=== PATIENT | male | born 1940 | race Caucasian/White ===

== ENCOUNTER 2021-02-16 12:10 | Inpatient (IN) ==
[2021-02-16] MEDS ORDERED: SODIUM CHLORIDE 0.9% 1000ML 1,000 ML IV SCH (12:30)
[2021-02-16 12:43] LABS: Basophils # (auto) 0.01 K/uL (0-0.2); Basophils % (auto) 0.1 %; Eosinophils # (auto) 0.07 K/uL (0-0.5); Hematocrit (blood only) 25.5 % (42-52); Hemoglobin 8.4 g/dL (14.0-18.0); Immature Granulocytes # (auto) 0.11 K/uL (0.00-0.02); Immature Granulocytes % (auto) 1.6 %; Lymphocytes # (auto) 0.69 K/uL (1.2-3.4); Lymphocytes % (auto) 10.1 %; Mean Corpuscular Hemoglobin 30.4 pg (25-34); Mean Corpuscular Hgb Conc 32.9 g/dL (32-36); Mean Corpuscular Volume 92.4 fL (80-100); Mean Platelet Volume 10.5 fL (7.4-10.4); Monocytes # (auto) 0.57 K/uL (0.11-0.59); Monocytes % (auto) 8.3 %; Neutrophils # (auto) 5.41 K/uL (1.4-6.5); Neutrophils % (auto) 78.9 %; Platelet Count 364 K/uL (130-400); RDW Coefficient of Variation 15.2 % (11.5-14.5); RDW Standard Deviation 51.3 fL (36.4-46.3); Red Blood Count 2.76 M/uL (4.7-6.1); White Blood Count 6.86 K/uL (4.8-10.8)
--- NOTE | 2021-02-16 12:53 | Emergency Department Note ---
Impression & Plan Acute renal failure, Hypomagnesemia, Urinary tract infection, Weakness, Anemia ED Provider Note NAME: SCOT STANTON AGE: 80 SEX: M : 1940 ARRIVES VIA: Ambulance INFORMANT: Patient, EMS ED PROVIDER(S): Leo Farrell DO CHIEF COMPLAINT: Weakness HPI: The patient is an 80-year-old male who presented to the emergency dep artment from [facility] for an evaluation of generalized weakness. The patient was started on Augmentin for urinary tract infection recently. He does have a history of atrial fibrillation. He does take Eliquis. He was hospitalized recently for respiratory failure secondary to Covid pneumonia. He was discharged to home again but was taken back to the emergency department because of hypoxia. The patient was discharged to [facility] for inpatient rehab. The patient was admitted to [facility] 4 days ago. The patient was complaining of abdominal pain. He does complain of some abdominal distention. He has been having worsening difficulty ambulating. He was initially noted to have an elevated creatinine compared to baseline. He did have some basic laboratory studies done recently and was found to have an elevation in his creatinine. He was also noticed to have urinary tract infection. The patient himself now states he has no difficulty breathing. He denies having any vomiting but does have significant nausea at this time. He did have some degree of diarrhea recently. He states that this is improved. He states he has been compliant with his usual outpatient medications. ROS: See above HPI for pertinent positives & negatives. A total of 10 systems reviewed and were otherwise negative. PAST MEDICAL HISTORY: See Below PAST SURGICAL HISTORY: See Below FAMILY HISTORY: See Below SOCIAL HISTORY: See Below HOME MEDICATIONS: See Below ALLERGIES: See Below VITALS: See Below PHYSICAL EXAMINATION: GENERAL: The patient is awake and alert. He is nonanxious appearing. EYES: The conjunctivae are clear. The pupils are round and reactive. EARS, NOSE, MOUTH AND THROAT: The nose is without any evidence of any deformity. NECK: The neck is nontender and supple. RESPIRATORY: Diminished breath sounds are noted throughout. There is no tachypnea or conversational dyspnea. CARDIOVASCULAR: Regular rate and rhythm noted there no murmurs rubs or gallops normal S1 normal S2. GASTROINTESTINAL: The abdomen is mildly distended. There is no tenderness guar ding rigidity. MUSCULOSKELETAL/EXTREMITIES: There is no evidence of gross deformity full range of motion is noted in the hips and shoulders. SKIN: The skin is warm and dry. Pedal edema was noted bilaterally. NEUROLOGIC: Patient is awake alert and oriented x3. MEDICAL DECISION MAKING: The patient is an 80-year-old male who recently was diagnosed with COVID-19. He had a very rough course of his COVID-19 infection. He was admitted to [facility] twice and then was transferred to inpatient rehab in our area. Patient presents to the emergency department today because of worsening weakness as well as signs of renal failure on laboratory studies. The patient had a Chambers catheter placed. He was on an antibiotic for urinary tract infecti on. I did treat the patient with IV fluids IV magnesium and IV antibiotics. I discussed the patient's laboratory and radiographic studies with him. I also discussed this case with the on-call [facility]. They have agreed to evaluate the patient in the emergency department for further management and disposition. The patient's potassium was in a normal range. This likely is due to the fact the patient's been having loose bowel movements recently. Triage Nursing notes reviewed. Prior medical records reviewed Vital Signs: reviewed and remarkable for no significant abnormalities Differential diagnosis: Infection, dehydration, metabolic abnormality, hypo/hyperglycemia, electrolyte disturbance, anemia, hypoxia, cardiac sources, intracerebral event, toxicologic, neurologic, as well as other pathologies. ER treatment provided: See below Diagnostics interpreted by me: ECG: EKG was obtained in the emergency department. My interpretation is atrial fibrillation at 63 bpm. Right bundle branch block pattern was noted. Diffuse T wave abnormalities were noted. No previous tracing was available. Cardiac Monitoring: An order was placed for continuous cardiac monitoring. The monitor shows a rate of 64 bpm with atrial fibrillation rhythm. Laboratory studies: As stated above and show below. Imaging studies: See below Consultation(s): I discussed this case with Teri johnson who is on-call for the [facility] group. They will evaluate the patient in the emergency department for further management and disposition. Past Med/Surg History Medical History Atrial fibrillation COVID-19 virus infection Dyslipidemia Hypertension Myasthenia gravis Osteoarthritis Surgical History S/P AAA repair Social History Smoking Status: Former smoker Feels Safe at Home: Yes Allergies Allergies Allergy/AdvReac Type Severity Reaction Status Date / Time milk Allergy Unknown Unverified 02/16/21 15:04 onion Allergy Unknown Unverified 02/16/21 15:04 pork derived (porcine) Allergy Unknown Unverified 02/16/21 15:04 Home Meds Home Medications Medication Instructions Recorded Confirmed acetaminophen 325 mg tablet 650 mg PO Q4H PRN 02/16/21 02/16/21 (Tylenol) amoxicillin 875 mg-potassium 1 tab PO Q12H 02/16/21 02/16/21 clavulanate 125 mg tablet (Augmentin) ampicillin sodium 2 gram 2 g IV Q6H 02/16/21 02/16/21 intravenous piggyback apixaban 5 mg tablet (Eliquis) 5 mg PO Q12 02/16/21 02/16/21 ascorbic acid (vitamin C) 1,000 mg 1,000 mg PO DAILY 02/16/21 02/16/21 tablet,extended release atorvastatin 10 mg tablet (Lipitor) 10 mg PO HS 02/16/21 02/16/21 azathioprine 50 mg tablet (Imuran) 150 mg PO DAILY 02/16/21 02/16/21 benzonatate 100 mg capsule 100 mg PO TID 02/16/21 02/16/21 (Tessalon Perles) calcium carbonate 500 mg (1,250 1 tab PO DAILY 02/16/21 02/16/21 mg)-vitamin D3 200 unit tablet (Calcium 500 + D) citalopram 40 mg tablet (Celexa) 40 mg PO DAILY 02/16/21 02/16/21 diphenoxylate-atropine 2.5 1 tab PO QID 02/16/21 02/16/21 mg-0.025 mg tablet (Lomotil) docusate sodium 100 mg capsule 100 mg PO BID 02/16/21 02/16/21 empagliflozin 10 mg tablet 10 mg PO DAILY 02/16/21 02/16/21 (Jardiance) lisinopril 40 mg tablet (Zestril) 40 mg PO DAILY 02/16/21 02/16/21 metoprolol tartrate 25 mg tablet 25 mg PO Q12H 02/16/21 02/16/21 ondansetron HCl 4 mg tablet 4 mg PO Q8H PRN 02/16/21 02/16/21 (Zofran) pantoprazole 40 mg tablet,delayed 40 mg PO DAILYBB 02/16/21 02/16/21 release (Protonix) pyridostigmine bromide 60 mg See Rx Instructions .ROUTE .COMPLEX 02/16/21 02/16/21 tablet (Mestinon) tamsulosin 0.4 mg capsule (Flomax) 0.4 mg PO QDD 02/16/21 02/16/21 torsemide 20 mg tablet 20 mg PO DAILY 02/16/21 02/16/21 zinc sulfate 50 mg zinc (220 mg) 50 mg PO DAILY 02/16/21 02/16/21 capsule (Zinc-220) Results & Data (ED) Vital Signs Vital Signs - 24 hr 02/16/21 12:17 02/16/21 12:22 02/16/21 13:15 Temperature 36.5 C Temperature Source Oral Pulse Rate 60 58 L Pulse Rate from SpO2 Sensor 59 L Pulse Rhythm Regular Pulse Strength Normal Respiratory Rate 20 17 Respiratory Effort / Characteristics Non-Labored Respiratory Depth Normal Respiratory Pattern Regular Blood Pressure 117/57 L 121/52 L Blood Pressure Mean 77 75 Blood Pressure Position Lying Pulse Oximetry 99 99 99 Oxygen Delivery Method Room Air Room Air Nasal Cannula Oxygen Flow Rate 2 Sepsis Recent Fever Within 48 Hours No Sepsis New/Unexplained Change in Mental Status N/A Sepsis Action Taken by Nursing No Action Required 02/16/21 13:30 02/16/21 13:45 Temperature Temperature Source Pulse Rate 64 Pulse Rate from SpO2 Sensor 68 62 Pulse Rhythm Pulse Strength Respiratory Rate 18 Respiratory Effort / Characteristics Respiratory Depth Respiratory Pattern Blood Pressure 133/58 L 126/59 L Blood Pressure Mean 83 81 Blood Pressure Position Pulse Oximetry 95 98 Oxygen Delivery Method Nasal Cannula Nasal Cannula Oxygen Flow Rate 2 2 Sepsis Recent Fever Within 48 Hours Sepsis New/Unexplained Change in Mental Status Sepsis Action Taken by [facility] Medications Current Medication List: was personally reviewed by me Laboratory Data Attestation: I reviewed the patient's lab results. Result diagrams: 02/16/21 12:23 02/16/21 12:23 Lab Results 02/16/21 02/16/21 02/16/21 Range/Units 12:23 12:23 12:23 WBC 6.86 (4.8-10.8) K/uL RBC 2.76 L (4.7-6.1) M/uL Hgb 8.4 L (14.0-18.0) g/dL Hct 25.5 L (42-52) % MCV 92.4 (80-100) fL MCH 30.4 (25-34) pg MCHC 32.9 (32-36) g/dL RDW Std Deviation 51.3 H (36.4-46.3) fL RDW Coeff of Song 15.2 H (11.5-14.5) % Plt Count 364 (130-400) K/uL MPV 10.5 H (7.4-10.4) fL Immature Gran % (Auto) 1.6 % Neut % (Auto) 78.9 % Lymph % (Auto) 10.1 % [place] % (Auto) 8.3 % Eos % (Auto) 1.0 % Baso % (Auto) 0.1 % Neut # (Auto) 5.41 (1.4-6.5) K/uL Lymph # (Auto) 0.69 L (1.2-3.4) K/uL [place] # (Auto) 0.57 (0.11-0.59) K/uL Eos # (Auto) 0.07 (0-0.5) K/uL Baso # (Auto) 0.01 (0-0.2) K/uL Immature Gran # (Auto) 0.11 H (0.00-0.02) K/uL PT 12.3 H (9.0-12.0) Seconds INR 1.2 H (0.9-1.1) APTT 30.5 (21.0-31.0) Seconds PTT Ratio 1.2 Sodium 138 (136-145) mmol/L Potassium 3.1 L (3.5-5.1) mmol/L Chloride 107 (98-107) mmol/L Carbon Dioxide 19 L (21-32) mmol/L Anion Gap 12.0 H (3-11) BUN 39 H (7-18) mg/dl Creatinine 7.75 H* (0.6-1.4) mg/dl Est Cr Clr Drug Dosing 9.6 ml/min Est GFR ( Amer) 6.9 ml/min Est GFR (Non-Af Amer) 5.9 ml/min BUN/Creatinine Ratio 5.1 L (10-20) Glucose 95 (70-99) mg/dl Calcium 7.2 L (8.5-10.1) mg/dl Magnesium 1.7 L (1.8-2.4) mg/dl Total Bilirubin 0.5 (0.2-1) mg/dl AST 19 (15-37) U/L ALT 24 (12-78) U/L Alkaline Phosphatase 51 (45-117) U/L Total Creatine Kinase 42 (39-308) U/L Troponin I < 0.015 (0-0.045) ng/ml NT-Pro-B Natriuret Pep 6481 H (0-1800) pg/ml Total Protein 5.4 L (6.4-8.2) gm/dl Albumin 1.1 L (3.4-5.0) gm/dl Globulin 4.3 H (2.5-4.0) gm/dl Albumin/Globulin Ratio 0.3 L (0.9-2) TSH 1.320 (0.300-4.500) uIu/ml Urine Color Urine Appearance (Clear) Urine pH (4.5-7.5) Ur Specific [place] (1.000-1.030) Urine Protein (Negative) Urine Glucose (UA) (Negative) Urine Ketones (Negative) Urine Blood (Negative) Urine Nitrite (Negative) Urine Bilirubin (Negative) Urine Urobilinogen (Negative) Ur Leukocyte Esterase (Negative) Urine WBC (Auto) (0-5) /hpf Urine RBC (Auto) (0-4) /hpf U Hyaline Cast (Auto) (0-5) /lpf U Epithel Cells (Auto) (0-5) /lpf Urine Bacteria (Auto) (Negative) Urine Yeast (None Prsent) Stl C. diff Tox B Gene COVID-19 Eval Order SARS-CoV-2 (PCR) (Negative) 02/16/21 02/16/21 02/16/21 Range/Units 12:34 12:34 12:34 WBC (4.8-10.8) K/uL RBC (4.7-6.1) M/uL Hgb (14.0-18.0) g/dL Hct (42-52) % MCV (80-100) fL MCH (25-34) pg MCHC (32-36) g/dL RDW Std Deviation (36.4-46.3) fL RDW Coeff of Song (11.5-14.5) % Plt Count (130-400) K/uL MPV (7.4-10.4) fL Immature Gran % (Auto) % Neut % (Auto) % Lymph % (Auto) % [place] % (Auto) % Eos % (Auto) % Baso % (Auto) % Neut # (Auto) (1.4-6.5) K/uL Lymph # (Auto) (1.2-3.4) K/uL [place] # (Auto) (0.11-0.59) K/uL Eos # (Auto) (0-0.5) K/uL Baso # (Auto) (0-0.2) K/uL Immature Gran # (Auto) (0.00-0.02) K/uL PT (9.0-12.0) Seconds INR (0.9-1.1) APTT (21.0-31.0) Seconds PTT Ratio Sodium (136-145) mmol/L Potassium (3.5-5.1) mmol/L Chloride (98-107) mmol/L Carbon Dioxide (21-32) mmol/L Anion Gap (3-11) BUN (7-18) mg/dl Creatinine (0.6-1.4) mg/dl Est Cr Clr Drug Dosing ml/min Est GFR ( Amer) ml/min Est GFR (Non-Af Amer) ml/min BUN/Creatinine Ratio (10-20) Glucose (70-99) mg/dl Calcium (8.5-10.1) mg/dl Magnesium (1.8-2.4) mg/dl Total Bilirubin (0.2-1) mg/dl AST (15-37) U/L ALT (12-78) U/L Alkaline Phosphatase (45-117) U/L Total Creatine Kinase (39-308) U/L Troponin I (0-0.045) ng/ml NT-Pro-B Natriuret Pep (0-1800) pg/ml Total Protein (6.4-8.2) gm/dl Albumin (3.4-5.0) gm/dl Globulin (2.5-4.0) gm/dl Albumin/Globulin Ratio (0.9-2) TSH (0.300-4.500) uIu/ml Urine Color Urine Appearance (Clear) Urine pH (4.5-7.5) Ur Specific [place] (1.000-1.030) Urine Protein (Negative) Urine Glucose (UA) (Negative) Urine Ketones (Negative) Urine Blood (Negative) Urine Nitrite (Negative) Urine Bilirubin (Negative) Urine Urobilinogen (Negative) Ur Leukocyte Esterase (Negative) Urine WBC (Auto) (0-5) /hpf Urine RBC (Auto) (0-4) /hpf U Hyaline Cast (Auto) (0-5) /lpf U Epithel Cells (Auto) (0-5) /lpf Urine Bacteria (Auto) (Negative) Urine Yeast (None Prsent) Stl C. diff Tox B Gene TNP COVID-19 Eval Order Covid19 at [facility] SARS-CoV-2 (PCR) POSITIVE A* (Negative) 02/16/21 Range/Units 12:44 WBC (4.8-10.8) K/uL RBC (4.7-6.1) M/uL Hgb (14.0-18.0) g/dL Hct (42-52) % MCV (80-100) fL MCH (25-34) pg MCHC (32-36) g/dL RDW Std Deviation (36.4-46.3) fL RDW Coeff of Song (11.5-14.5) % Plt Count (130-400) K/uL MPV (7.4-10.4) fL Immature Gran % (Auto) % Neut % (Auto) % Lymph % (Auto) % [place] % (Auto) % Eos % (Auto) % Baso % (Auto) % Neut # (Auto) (1.4-6.5) K/uL Lymph # (Auto) (1.2-3.4) K/uL [place] # (Auto) (0.11-0.59) K/uL Eos # (Auto) (0-0.5) K/uL Baso # (Auto) (0-0.2) K/uL Immature Gran # (Auto) (0.00-0.02) K/uL PT (9.0-12.0) Seconds INR (0.9-1.1) APTT (21.0-31.0) Seconds PTT Ratio Sodium (136-145) mmol/L Potassium (3.5-5.1) mmol/L Chloride (98-107) mmol/L Carbon Dioxide (21-32) mmol/L Anion Gap (3-11) BUN (7-18) mg/dl Creatinine (0.6-1.4) mg/dl Est Cr Clr Drug Dosing ml/min Est GFR ( Amer) ml/min Est GFR (Non-Af Amer) ml/min BUN/Creatinine Ratio (10-20) Glucose (70-99) mg/dl Calcium (8.5-10.1) mg/dl Magnesium (1.8-2.4) mg/dl Total Bilirubin (0.2-1) mg/dl AST (15-37) U/L ALT (12-78) U/L Alkaline Phosphatase (45-117) U/L Total Creatine Kinase (39-308) U/L Troponin I (0-0.045) ng/ml NT-Pro-B Natriuret Pep (0-1800) pg/ml Total Protein (6.4-8.2) gm/dl Albumin (3.4-5.0) gm/dl Globulin (2.5-4.0) gm/dl Albumin/Globulin Ratio (0.9-2) TSH (0.300-4.500) uIu/ml Urine Color Yellow Urine Appearance Turbid A (Clear) Urine pH 5.0 (4.5-7.5) Ur Specific [place] 1.018 (1.000-1.030) Urine Protein 1+ H (Negative) Urine Glucose (UA) Negative (Negative) Urine Ketones Trace H (Negative) Urine Blood 3+ H (Negative) Urine Nitrite Negative (Negative) Urine Bilirubin Negative (Negative) Urine Urobilinogen Negative (Negative) Ur Leukocyte Esterase 2+ H (Negative) Urine WBC (Auto) >30 H (0-5) /hpf Urine RBC (Auto) 10-30 H (0-4) /hpf U Hyaline Cast (Auto) 1-5 (0-5) /lpf U Epithel Cells (Auto) >30 H (0-5) /lpf Urine Bacteria (Auto) 1+ H (Negative) Urine Yeast Budding w/ Hyphae A (None Prsent) Stl C. diff Tox B Gene COVID-19 Eval Order SARS-CoV-2 (PCR) (Negative) Administered Medications Discontinued Medications Sodium Chloride (Nss 1000ml) 1,000 mls @ 999 mls/hr IV .Q1H1M BOBBI Stop: 02/16/21 13:30 Last Infusion: 02/16/21 13:34 Dose: 0 mls/hr Documented by: [id number] Admin: 02/16/21 12:32 Dose: 999 mls/hr Documented by: [id number] Piperacillin Sod/Tazobactam Sod (Zosyn) 4.5 gm in 120 mls @ 240 mls/hr IV NOW ONE Stop: 02/16/21 14:19 Last Infusion: 02/16/21 15:17 Dose: 0 mls/hr Documented by: [id number] Admin: 02/16/21 13:59 Dose: 240 mls/hr Documented by: [id number] Magnesium Sulfate/Dextrose (Magnesium Sulfate / D5w) 1 gm in 100 mls @ 100 mls/hr IV NOW STA Stop: 02/16/21 14:55 Last Infusion: 02/16/21 15:17 Dose: 0 mls/hr Documented by: [id number] Admin: 02/16/21 14:01 Dose: 100 mls/hr Documented by: [id number] Ondansetron HCl (Ondansetron Inj 2 Mg/Ml 2 Ml Vial) Confirm Administered Dose 4 mg .ROUTE .STK-MED ONE Stop: 02/16/21 14:01 Last Admin: 02/16/21 14:06 Dose: 4 mg Documented by: [id number] Imaging Data Radiologist's Impression: Chest X-Ray 02/16/21 12:22 XR chest 1V portable CLINICAL HISTORY: weakness COMPARISON STUDY: No previous studies for comparison. FINDINGS: Lung volumes are normal. There is no pneumothorax or pleural effusion. Multifocal nodular airspace opacities are noted. These include a 2.5 cm left midlung nodular opacity. These are greater within the left lung. There may be right infrahilar opacity. There is cardiomegaly. IMPRESSION: 1. Several nodular opacities within the left lung. An infectious process is favored however underlying pulmonary nodules cannot be excluded. Radiographic follow-up to ensure resolution is recommended. 2. Cardiomegaly. ACT 112: Negative or not required by law. Electronically signed by: Griffin Marley M.D. 02/16/2021 1:33 PM Discharge Plan Visit Data Chief Complaint: Abnormal Labs/Diagnostic Testing Stated Complaint: DECREASE KIDNEY FUNCTION ED Provider: Leo Farrell Discharge Problem: Acute renal failure, Hypomagnesemia, Urinary tract infection, Weakness, Anemia Patient Disposition: Being Evaluated by Hospitalist Forms Stand Alone Forms: [facility] Prescriptions Prescriptions: No Action acetaminophen [Tylenol] 325 mg Tablet 650 mg PO Q4H PRN (Reason: Pain) RF: 0 torsemide 20 mg tablet 20 mg PO DAILY RF: 0 citalopram [Celexa] 40 mg tablet 40 mg PO DAILY RF: 0 atorvastatin [Lipitor] 10 mg tablet 10 mg PO HS RF: 0 ondansetron HCl [Zofran] 4 mg tablet 4 mg PO Q8H PRN (Reason: Nausea) RF: 0 ascorbic acid (vitamin C) 1,000 mg Tablet Extended Release 1,000 mg PO DAILY RF: 0 diphenoxylate-atropine [Lomotil] 2.5-0.025 mg tablet 1 tab PO QID RF: 0 azathioprine [Imuran] 50 mg tablet 150 mg PO DAILY RF: 0 tamsulosin [Flomax] 0.4 mg capsule 0.4 mg PO QDD RF: 0 benzonatate [Tessalon Perles] 100 mg capsule 100 mg PO TID RF: 0 pantoprazole [Protonix] 40 mg tablet,delayed release (DR/EC) 40 mg PO DAILYBB RF: 0 pyridostigmine bromide [Mestinon] 60 mg tablet See Rx Instructions .ROUTE .COMPLEX RF: 0 docusate sodium 100 mg Capsule 100 mg PO BID RF: 0 lisinopril [Zestril] 40 mg tablet 40 mg PO DAILY RF: 0 amoxicillin-pot clavulanate [Augmentin] 875-125 mg tablet 1 tab PO Q12H RF: 0 ampicillin sodium 2 gram Piggyback 2 g IV Q6H RF: 0 metoprolol tartrate 25 mg tablet 25 mg PO Q12H RF: 0 calcium carbonate-vitamin D3 [Calcium 500 + D] 500 mg(1,250mg) -200 unit Tablet 1 tab PO DAILY RF: 0 zinc sulfate [Zinc-220] 50 mg zinc (220 mg) capsule 50 mg PO DAILY RF: 0 Eliquis 5 mg tablet 5 mg PO Q12 RF: 0 Jardiance 10 mg tablet 10 mg PO DAILY RF: 0 Referrals Referrals: PCP,NO [Physician] -
[2021-02-16 12:54] LABS: INR 1.2 (0.9-1.1); Partial Thromboplastin Ratio 1.2; Partial Thromboplastin Time 30.5 Seconds (21.0-31.0); Prothrombin Time 12.3 Seconds (9.0-12.0)
[2021-02-16 13:06] LABS: Appearance Urine Turbid (Clear); Bilirubin Urine Negative (Negative); Blood Urine 3+ (Negative); Color Urine Yellow; Epithelial Cell Urine Auto >30 /lpf (0-5); Glucose Urine UA Negative (Negative); Ketones Urine Trace (Negative); Leukocyte Esterase Urine 2+ (Negative); Nitrite Urine Negative (Negative); Protein Urine 1+ (Negative); Specific Gravity Urine 1.018 (1.000-1.030); Urobilinogen Urine Negative (Negative); WBC Urine Automated >30 /hpf (0-5)
[2021-02-16 13:22] LABS: Bacteria Urine Automated 1+ (Negative)
--- NOTE | 2021-02-16 13:35 | XRay Report ---
XR chest 1V portable CLINICAL HISTORY: weakness COMPARISON STUDY: No previous studies for comparison. FINDINGS: Lung volumes are normal. There is no pneumothorax or pleural effusion. Multifocal nodular a irspace opacities are noted. These include a 2.5 cm left midlung nodular opacity. These are greater w ithin the left lung. There may be right infrahilar opacity. There is cardiomegaly. IMPRESSION: 1. Several nodular opacities within the left lung. An infectious process is favored however underlyin g pulmonary nodules cannot be excluded. Radiographic follow-up to ensure resolution is recommended. 2. Cardiomegaly. ACT 112: Negative or not required by law. Electronically signed by: Griffin Marley M.D. 02/16/2021 1:33 PM
[2021-02-16 13:36] LABS: Alanine Aminotransferase 24 U/L (12-78); Albumin Globulin Ratio 0.3 (0.9-2); Albumin Level 1.1 gm/dl (3.4-5.0); Alkaline Phosphatase 51 U/L (45-117); Aspartate Aminotransferase 19 U/L (15-37); BUN Creatinine Ratio 5.1 (10-20); Bilirubin,Total 0.5 mg/dl (0.2-1); Blood Urea Nitrogen 39 mg/dl (7-18); Calcium 7.2 mg/dl (8.5-10.1); Carbon Dioxide 19 mmol/L (21-32); Chloride 107 mmol/L (98-107); Creatine Kinase 42 U/L (39-308); Creatinine Clr Calc Pharmacy 9.6 ml/min; Est GFR (African American) 6.9 ml/min; Est GFR (Non-African American) 5.9 ml/min; Globulin 4.3 gm/dl (2.5-4.0); Glucose 95 mg/dl (70-99); Magnesium 1.7 mg/dl (1.8-2.4); NT Pro B Type Natriuretic Pept 6481 pg/ml (0-1800); Potassium 3.1 mmol/L (3.5-5.1); Sodium 138 mmol/L (136-145); Total Protein 5.4 gm/dl (6.4-8.2); Troponin I < 0.015 ng/ml (0-0.045)
[2021-02-16] MEDS ORDERED: PIPERACILL/TAZOBAC CONSULT ACTIVE PRN ×2 (13:50→19:27)
[2021-02-16] MEDS ORDERED: PIPERACILLIN/TAZOBACTAM 4.5 GM/120 ML BAG IV ONE (13:50)
[2021-02-16] MEDS ORDERED: MAGNESIUM SULFATE / D5W 1 GM/100 ML BAG IV STA (13:56)
[2021-02-16] MEDS ORDERED: ONDANSETRON INJ 2 MG/ML 2 ML VIAL ONE (14:00)
[2021-02-16] MEDS ORDERED: Heparin IV Adult Wt-Based Standard *NO* Bolus Protocol ONE (15:34)
[2021-02-16 16:46] LABS: Total Protein Urine Random 134.4 mg/dl (0-11.9)
[2021-02-16 17:24] LABS: Base Excess VBG -9.3 mEq/L; HCO3 VBG 18 mmol/L; Oxygen Saturation VBG < 60.0 %; PCO2 VBG 45 mmHg (38-50); PO2 VBG 26 mmHg; pH VBG 7.22 (7.36-7.41)
[2021-02-16] MEDS ORDERED: ACETAMINOPHEN 325 MG TAB PO PRN (19:27)
[2021-02-16] MEDS ORDERED: PROMETHAZINE HCL 6.25 MG in SODIUM CHLORIDE 0.9% 50 ML IV STA (19:31)
[2021-02-16] MEDS: SODIUM CHLORIDE 0.9% 1000ML 1,000 ML IV SCH (19:44)
--- NOTE | 2021-02-16 20:50 | History & Physical Report ---
Date of Service February 16, 2021 Assessment & Plan (1) Acute renal failure: Plan: -admit to tele -patient presenting from [facility] for eval of worsening renal failure -creat 1.0 02/12 -> 2.7 02/13 -> 6.3 -> 7.7 today -young placed in ED with very little urine return -check renal US -urine osmo, protein, creat -K+ 3.1, Mg+ 1.7 - replace, follow electrolytes -metabolic acidosis noted - VBG ph 7.22, HCO3 18 -IVF -nephro consult (2) Anemia: Plan: -hgb 8.4 -likely due to underlying renal failure -no signs of bleeding -follow CBC, transfuse PRN (3) History of COVID-19: Plan: -recent admissions to per HPI -currently saturating well on 2L (started during previous admission) (4) Urinary tract infection: Plan: -recently had enterococcus UTI and 1/2 blood cultures positive for enterococcus -received IV ampicillin and was to transition to Augmentin -s/p Zosyn in the ED, continue with -follow cultures (5) History of pulmonary embolism: Plan: -given renal failure, stop Eliquis and start IV heparin (6) DM type 2 (diabetes mellitus, type 2): Plan: -hgb a1c 6.7 12/2020 -Novolog per protocol while hospitalized (7) Paroxysmal A-fib: Plan: -rate controlled on metoprolol -on IV heparin as above (8) Myasthenia gravis: Plan: -continue azathioprine and pyridostigmine renally dosed (9) DVT prophylaxis: Plan: -on IV heparin Admission and Anticipated Discharge Date Admission Date: February 16, 2021 History of Present Illness Chief Complaint: Sent from [facility] for worsening renal failure Primary Care Provider: Huy Rainey MD Patient seen by Dr. Curry, please refer to her additional documentation. 80 year old male with PMH MG, DM type II, s/p AAA repair, recent COVID 19 infection, pulmonary embolism anticoagulated on Eliquis, p. afib, and other problems listed below who was sent to the ED from [facility] for evaluation of worsening renal failure. Recently admitted to [facility] 01/20-01/23 for COVID pneumonia and acute PE. Patient was treated with dexamethasone and remdesivir. Was started on Eliquis for PE. Hypoxia resolved by the time of discharge. Kalyan julian presented back to [facility] 01/26 and was found to be in afib RVR. Rates improved with IV metoprolol. He also required 2L O2. He was redosed with dexamethasone and remdesvir. Patient again discharged home. Patient then admitted to [facility] 02/08-02/12 for UTI. Urine culture from 02/09 grew enterococcus and 1 out of 2 blood cultures from 02/08 grew enteroccoccus as well. Repeat cultures from 02/12 show no growth to date. (culture information obtained via phone from micro lab). Patient was discharged on IV ampicillin for 4 days and was to transition to Augmentin today for 1 week. Patient was discharged to [facility] for rehab needs. Has been noted to have worsening renal failure (creat 1.0 on 02/12 -> 2.7 -> 6.3 -> 7.6). In the ED, patient is hemodynamically stable. Labs show hgb 8.4, creat 7.7, K+ 3.1. Young was placed with little urine return. UA appears infected. Patient was given Mg+ replacement, IV Zosyn, IVF. Allergies Allergy/AdvReac Type Severity Reaction Status Date / Time milk Allergy Unknown Unverified 02/16/21 15:04 onion Allergy Unknown Unverified 02/16/21 15:04 pork derived (porcine) Allergy Unknown Unverified 02/16/21 15:04 Home Medications Medication Instructions Recorded Confirmed Type acetaminophen 325 mg tablet 650 mg PO Q4H PRN 02/16/21 02/16/21 History (Tylenol) amoxicillin 875 mg-potassium 1 tab PO Q12H 02/16/21 02/16/21 History clavulanate 125 mg tablet (Augmentin) ampicillin sodium 2 gram 2 g IV Q6H 02/16/21 02/16/21 History intravenous piggyback apixaban 5 mg tablet (Eliquis) 2.5 mg PO Q12 02/16/21 02/16/21 History ascorbic acid (vitamin C) 1,000 mg 1,000 mg PO DAILY 02/16/21 02/16/21 History tablet,extended release atorvastatin 10 mg tablet (Lipitor) 10 mg PO HS 02/16/21 02/16/21 History azathioprine 50 mg tablet (Imuran) 150 mg PO DAILY 02/16/21 02/16/21 History benzonatate 100 mg capsule 100 mg PO TID PRN 02/16/21 02/16/21 History (Tessalon Perles) calcium carbonate 500 mg (1,250 1 tab PO DAILY 02/16/21 02/16/21 History mg)-vitamin D3 200 unit tablet (Calcium 500 + D) citalopram 40 mg tablet (Celexa) 40 mg PO DAILY 02/16/21 02/16/21 History diphenoxylate-atropine 2.5 1 tab PO QID PRN 02/16/21 02/16/21 History mg-0.025 mg tablet (Lomotil) docusate sodium 100 mg capsule 100 mg PO BID 02/16/21 02/16/21 History empagliflozin 10 mg tablet 10 mg PO DAILY 02/16/21 02/16/21 History (Jardiance) metoprolol tartrate 25 mg tablet 25 mg PO Q12H 02/16/21 02/16/21 History ondansetron HCl 4 mg tablet 4 mg PO Q8H PRN 02/16/21 02/16/21 History (Zofran) pantoprazole 40 mg tablet,delayed 40 mg PO DAILYBB 02/16/21 02/16/21 History release (Protonix) pyridostigmine bromide 60 mg See Rx Instructions .ROUTE .COMPLEX 02/16/21 02/16/21 History tablet (Mestinon) tamsulosin 0.4 mg capsule (Flomax) 0.4 mg PO QDD 02/16/21 02/16/21 History zinc sulfate 50 mg zinc (220 mg) 50 mg PO DAILY 02/16/21 02/16/21 History capsule (Zinc-220) Past Med/Surg History Medical History (Updated 02/16/21 @ 21:13 by ALONDRA Ruiz) COVID-19 virus infection DM type 2 (diabetes mellitus, type 2) Dyslipidemia History of pulmonary embolism Hypertension Myasthenia gravis Osteoarthritis Paroxysmal A-fib Surgical History S/P AAA repair Family History Father Cancer Social History (Reviewed 02/16/21 @ 21:10 by MAURICIO Ruiz Smoking Status: Former smoker Cigarettes Per Day: 1 pack; Smoking End Date: 25 years ago; Hx Alcohol Use: No Hx Substance Use: No Preferred Language: Wolof Communication Ability: Effective Community Integration Specialist Required: No Beliefs That Will Affect Care: None Current Living Situation: Rehab Current Living Situation Comment: [facility] Other Information That Helps Us Care for You: No Feels Safe at Home: Yes Safety Concerns: Feels Safe At This Time Assistive Devices: Denture - Upper and Walker Assistive Devices Comment: not sure of how much oxygen he is on Review of Systems Review of Systems: At least ten systems were reviewed and negative except as indicated in HPI above. Physical Exam Physical Exam: CONSTITUTIONAL: WNWD, vitals as above, generally ill- appearing, NAD EYES: normal conjunctivae, no scleral icterus ENT: external ear and nose normal, MMM NECK: trachea midline RESPIRATORY: clear to auscultation bilaterally, no crackles, rales or wheezes, normal respiratory effort CARDIOVASCULAR: regular rate and rhythm, S1 and 2 heard without murmurs, gallops or rubs, no JVD, no peripheral edema GASTROINTESTINAL: soft, nontender, ND, no guarding MUSCULOSKELETAL: generalized weakness, head is normocephalic and atraumatic SKIN: warm and dry NEUROLOGIC: No facial palsy, no dysarthria. CN 2-12 grossly intact, normal cognition, normal speech, no tremor. No gross focal deficits. PSYCHIATRIC: alert cooperative and oriented to person, place and time. Euthymic mood, makes good eye contact, language grossly intact, recent and remote memory grossly intact. Results & Data Results & Data ([facility]) Vital Signs (Past 12 Hours) Vital Signs Temp Pulse Pulse Resp BP BP Pulse Ox 02/16/21 19:45 36.4 C 70 20 140/51 L 90 02/16/21 19:27 36.4 C 70 20 140/51 L 96 02/16/21 16:03 61 16 101/51 L 99 02/16/21 13:45 126/59 L 98 02/16/21 13:30 64 18 133/58 L 95 02/16/21 13:15 58 L 17 121/52 L 99 02/16/21 12:22 99 02/16/21 12:17 36.5 C 60 20 117/57 L 99 Laboratory Results Short CBC 10/17/21 Range/Units 12:23 WBC 6.86 (4.8-10.8) K/uL Hgb 8.4 L (14.0-18.0) g/dL Hct 25.5 L (42-52) % Plt Count 364 (130-400) K/uL BMP 02/16/21 12:23 Sodium 138 Potassium 3.1 L Chloride 107 Carbon Dioxide 19 L BUN 39 H Creatinine 7.75 H* Glucose 95 Calcium 7.2 L Cardiac Enzymes 02/16/21 02/16/21 Range/Units 12:23 17:14 Total Creatine Kinase 42 39 (39-308) U/L Troponin I < 0.015 (0-0.045) ng/ml Liver Function 02/16/21 Range/Units 12:23 Total Bilirubin 0.5 (0.2-1) mg/dl AST 19 (15-37) U/L ALT 24 (12-78) U/L Alkaline Phosphatase 51 (45-117) U/L Albumin 1.1 L (3.4-5.0) gm/dl Urine 02/16/21 Range/Units 12:44 Urine Color Yellow Urine Appearance Turbid A (Clear) Urine pH 5.0 (4.5-7.5) Ur Specific [place] 1.018 (1.000-1.030) Urine Protein 1+ H (Negative) Urine Glucose (UA) Negative (Negative) Diagnostic Findings Chest X-Ray 02/16/21 12:22 XR chest 1V portable CLINICAL HISTORY: weakness COMPARISON STUDY: No previous studies for comparison. FINDINGS: Lung volumes are normal. There is no pneumothorax or pleural effusion. Multifocal nodular airspace opacities are noted. These include a 2.5 cm left midlung nodular opacity. These are greater within the left lung. There may be right infrahilar opacity. There is cardiomegaly. IMPRESSION: 1. Several nodular opacities within the left lung. An infectious process is favored however underlying pulmonary nodules cannot be excluded. Radiographic follow-up to ensure resolution is recommended. 2. Cardiomegaly. ACT 112: Negative or not required by law. Electronically signed by: Griffin Marley M.D. 02/16/2021 1:33 PM Code Status & VTE Plan VTE Prophylaxis Plan VTE Prophylaxis will be ordered: No Supervising Physician Co-Signing Physician Notes I have seen and examined the patient and have discussed the case with the provider above. I agree with the assessment and plan as stated. The patient is an 80 yo M with two recent hospitalizations after covid pneumonia infection resulting in a transition to rehab. In the last couple of days at [facility] rehab, he has notably become more generally weak and apathetic to food. He also has developed acute renal failure. Infecitons and antibiotic history is above. He has anemia which is likely multifactorial including kidney disease, inflammation from multiple chronic medical problems and persistent daily phlebotomy for the past month. He reports no respiratory symptoms at this time and is otherwise having no symptoms. UA is positive and noted recent history of blood and urine infection with enterococcus; repeat cultures are pending. Covering with Zosyn empirically. My physical exam is above. Agree with plan for renally dosed antibiotics pending culture results and clinical improvement. IVF and nephro consult with BMP trend in am. Agree with converting Eliquis to heparin in setting of recent acute PE; he is also in persistent atrial fibrillation which will provide stroke prophylaxis. Radha is not a large player in the active problem list. DO Patricio (1) Urinary tract infection Hematuria presence: with hematuria Urinary tract infection type: site unspecified Qualified Code(s): N39.0 - Urinary tract infection, site not specified; R31.9 - Hematuria, unspecified (2) Acute renal failure Acute renal failure type: unspecified Qualified Code(s): N17.9 - Acute kidney failure, unspecified
[2021-02-16] MEDS ORDERED: POTASSIUM CHLORIDE CRTAB 20 MEQ TABCR PO ONE (21:08)
[2021-02-16] MEDS: HEPARIN SODIUM/DEXTROSE 25,000 UNITS/500 ML BAG IV SCH (21:21)
[2021-02-16] MEDS: TAMSULOSIN HCL 0.4 MG CAP PO SCH (21:23)
[2021-02-16] MEDS: ATORVASTATIN 10 MG TAB PO SCH (21:23)
[2021-02-16] MEDS: METOPROLOL TARTRATE 25 MG TAB PO SCH (21:24)
[2021-02-16] MEDS: PYRIDOSTIGMINE BROMIDE 60 MG TAB PO SCH (21:24)
[2021-02-16] MEDS: PIPERACILLIN/TAZOBACTAM 3.375 GM in DEXTROSE 5% 100 ML IV SCH (21:29)
[2021-02-17 03:43] LABS: Hematocrit (blood only) 30.4 % (42-52); Hemoglobin 9.9 g/dL (14.0-18.0); Mean Corpuscular Hemoglobin 29.8 pg (25-34); Mean Corpuscular Hgb Conc 32.6 g/dL (32-36); Mean Corpuscular Volume 91.6 fL (80-100); Mean Platelet Volume 10.1 fL (7.4-10.4); Platelet Count 306 K/uL (130-400); RDW Standard Deviation 50.8 fL (36.4-46.3); Red Blood Count 3.32 M/uL (4.7-6.1); White Blood Count 4.92 K/uL (4.8-10.8)
[2021-02-17 04:02] LABS: Partial Thromboplastin Ratio 4.3
[2021-02-17 04:06] LABS: Partial Thromboplastin Time 112.5 Seconds (21.0-31.0)
[2021-02-17 04:59] LABS: BUN Creatinine Ratio 5.7 (10-20); Calcium 6.8 mg/dl (8.5-10.1); Creatinine Clr Calc Pharmacy 9.6 ml/min; Magnesium 1.9 mg/dl (1.8-2.4); Phosphorus 5.8 mg/dl (2.5-4.9); Potassium 3.2 mmol/L (3.5-5.1)
[2021-02-17] MEDS: SODIUM CHLORIDE 0.9% 1000ML 1,000 ML IV SCH ×2 (05:06→13:12)
[2021-02-17] MEDS: PANTOprazole 40 MG TAB PO SCH (05:40)
[2021-02-17] MEDS ORDERED: POTASSIUM CHLORIDE 10 MEQ TABCR PO STA (05:44)
[2021-02-17] MEDS: DIPHENOXYLATE/ATROPINE 2.5/0.025MG TAB PO ONE ×2 (06:40→09:18)
[2021-02-17] MEDS ORDERED: PROMETHAZINE HCL 6.25 MG in SODIUM CHLORIDE 0.9% 50 ML IV STA (06:45)
[2021-02-17] MEDS: METOPROLOL TARTRATE 25 MG TAB PO SCH ×3 (09:17→20:56)
[2021-02-17] MEDS: azaTHIOprine 25 MG TAB PO SCH ×2 (09:17→12:40)
[2021-02-17] MEDS: PYRIDOSTIGMINE BROMIDE 60 MG TAB PO SCH ×4 (09:17→20:56)
[2021-02-17] MEDS: PIPERACILLIN/TAZOBACTAM 3.375 GM in DEXTROSE 5% 100 ML IV SCH ×2 (09:18→21:51)
[2021-02-17] MEDS ORDERED: MAGNESIUM SULFATE / D5W 1 GM/100 ML BAG IV ONE (11:41)
[2021-02-17] MEDS ORDERED: POTASSIUM CHLORIDE CRTAB 20 MEQ TABCR PO STA (11:41)
[2021-02-17 11:44] LABS: Partial Thromboplastin Ratio 3.6
[2021-02-17 11:50] LABS: Partial Thromboplastin Time 95.8 Seconds (21.0-31.0)
[2021-02-17] MEDS ORDERED: CALCIUM GLUCONATE 10% 2,000 MG in SODIUM CHLORIDE 0.9% 50 ML IV ONE (12:00)
[2021-02-17] MEDS: HEPARIN SODIUM/DEXTROSE 25,000 UNITS/500 ML BAG IV SCH (13:22)
--- NOTE | 2021-02-17 13:31 | Hospitalist Progress Note ---
Date of Service February 17, 2021 Assessment & Plan (1) Acute renal failure due to tubular necrosis: Plan: Obstruction was ruled out wt renal ultrasound today. Likely ATN. Hemodialysis if needed, defer to nephro. For now cont renal diet, electrolyte correction as needed (note corrected calcium is 9.4 without replacement), renal diet and NSS. Metabolic acidosis on labwork. Acute renal failure is the likely cause for nausea, however, consider additional imaging of abdomen if this doesn't improve with treatment. (2) ATN (acute tubular necrosis): (3) Anemia: Plan: -hgb 8.4 -likely multifactorial including kidney disease, inflammation from multiple chronic medical problems and persistent daily phlebotomy for the past month. -no signs of bleeding -follow CBC, transfuse PRN (4) History of COVID-19: Plan: -recent admissions to [facility] twice in Jan per HPI -currently saturating well on 2L (started during previous admission), previously treated for covid-19 at OSH one month ago. (5) Urinary tract infection: Plan: -recently had enterococcus UTI and 1/2 blood cultures positive for enterococcus -received IV ampicillin and was to transition to Augmentin -cont Zosyn pending clinical improvement and negative cultures. (6) History of pulmonary embolism: Plan: -recent PE diagnosis one month ago, possibly provoked from covid illness, given renal failure, stop Eliquis and start IV heparin, request records from outside hospital. (7) DM type 2 (diabetes mellitus, type 2): Plan: -hgb a1c 6.7 12/2020, will place on diabetic diet and cont Novolog as needed for BSG >200. (8) Paroxysmal A-fib: Plan: -rate controlled on metoprolol, heparin for stroke prophylaxis. (9) Myasthenia gravis: Plan: -continue azathioprine and pyridostigmine renally dosed, NIFs are nomal and t here is no evidence of myasthenia crisis (10) DVT prophylaxis: Plan: cont IV heparin while in renal failure Full Dispo-back to [facility] once renal failure resolves. DO [facility] Hospitalist Admission and Anticipated Discharge Date Admission Date: February 16, 2021 Subjective 80 yo M with multiple recent hospitalizations for covid, afib with RVR, blood and urine infections and PE now presenting from [facility] rehab with malaise nausea and acuute renal failure. He is persistently nauseous today. Phenergan IV didn't help yesterday and he cannot have Zofran for prolonged QTc, decided to try NC phenergan. He otherwise denies CP, SOB, abdominal pain or other issues today. He is not eating much 2/2 nausea. Review of Systems Review of Systems: At least ten systems were reviewed and negative except as indicated in HPI above. Physical Exam Physical Exam: CONSTITUTIONAL: WNWD, vitals as above, generally ill- appearing, NAD EYES: normal conjunctivae, no scleral icterus ENT: external ear and nose normal, MMM NECK: trachea midline RESPIRATORY: clear to auscultation bilaterally, no crackles, rales or wheezes, normal respiratory effort CARDIOVASCULAR: regular rate and rhythm, S1 and 2 heard without murmurs, gallops or rubs, no JVD, no peripheral edema GASTROINTESTINAL: soft, nontender, ND, no guarding MUSCULOSKELETAL: generalized weakness, head is normocephalic and atraumatic SKIN: warm and dry NEUROLOGIC: No facial palsy, no dysarthria. CN 2-12 grossly intact, normal cognition, normal speech, no tremor. No gross focal deficits. PSYCHIATRIC: alert cooperative and oriented to person, place and time. Euthymic mood, makes good eye contact, language grossly intact, recent and remote memory grossly intact. Results & Data Results & Data ([facility]) Vital Signs (Past 12 Hours) Vital Signs Temp Pulse Pulse Resp BP Pulse Ox 02/17/21 11:25 36.7 C 75 17 115/49 L 92 02/17/21 07:24 36.7 C 63 24 132/55 L 94 02/17/21 07:00 62 02/17/21 03:16 36.5 C 62 20 108/53 L 93 Laboratory Results Short CBC 02/17/21 Range/Units 03:28 WBC 4.92 (4.8-10.8) K/uL Hgb 9.9 L (14.0-18.0) g/dL Hct 30.4 L (42-52) % Plt Count 306 (130-400) K/uL BMP 02/16/21 02/17/21 12:23 03:28 Sodium 138 141 Potassium 3.1 L 3.2 L Chloride 107 110 H Carbon Dioxide 19 L 16 L BUN 39 H 43 H Creatinine 7.75 H* 7.64 H* Glucose 95 103 H Calcium 7.2 L 6.8 L Cardiac Enzymes 02/16/21 02/16/21 Range/Units 12:23 17:14 Total Creatine Kinase 42 39 (39-308) U/L Troponin I < 0.015 (0-0.045) ng/ml Liver Function 02/16/21 Range/Units 12:23 Total Bilirubin 0.5 (0.2-1) mg/dl AST 19 (15-37) U/L ALT 24 (12-78) U/L Alkaline Phosphatase 51 (45-117) U/L Albumin 1.1 L (3.4-5.0) gm/dl Medications Administered Current Inpatient Medications Acetaminophen (Acetaminophen 325 Mg Tab) 650 mg PO Q8H PRN PRN Reason: Pain or Fever Stop: 03/18/21 19:26 Atorvastatin Calcium (Atorvastatin 10 Mg Tab) 10 mg PO HS BOBBI Stop: 03/18/21 20:59 Last Admin: 02/16/21 21:23 Dose: 10 mg Documented by: Azathioprine (Azathioprine 25 Mg Tab) 75 mg PO DAILY BOBBI Stop: 03/19/21 08:59 Last Admin: 02/17/21 12:40 Dose: Not Given Documented by: Sodium Chloride (Nss 1000ml) 1,000 mls @ 75 mls/hr IV .[id number] [facility] Stop: 03/18/21 15:29 Last Admin: 02/17/21 13:12 Dose: 75 mls/hr Documented by: Heparin Sodium/Dextrose (Heparin Sodium/Dextrose) 25,000 units in 500 mls @ 24 mls/hr IV .[id number] [facility]; Protocol Stop: 03/18/21 17:59 Last Admin: 02/17/21 13:22 Dose: 1,200 units/hr, 24 mls/hr Documented by: Piperacillin Sod/Tazobactam (Sod 3.375 gm/ Dextrose) 115 mls @ 28.75 mls/hr IV Q12H [facility]; Protocol Stop: 02/18/21 21:59 Last Infusion: 02/17/21 09:18 Dose: 0 mls/hr Documented by: Magnesium Sulfate/Dextrose (Magnesium Sulfate / D5w) 1 gm in 100 mls @ 50 mls/hr IV ONE ONE Stop: 02/17/21 13:40 Last Admin: 02/17/21 13:12 Dose: 50 mls/hr Documented by: Potassium Chloride (K [place] / Wtr) 10 meq in 100 mls @ 100 mls/hr IV Q1H [facility] Stop: 02/17/21 14:28 Metoprolol Tartrate (Metoprolol Tartrate 25 Mg Tab) 25 mg PO BID BOBBI Stop: 03/18/21 20:59 Last Admin: 02/17/21 12:40 Dose: Not Given Documented by: Miscellaneous Information (Piperacill/Tazobac Consult Active) 1 ea N/A UD PRN PRN Reason: Consult Stop: 03/18/21 19:26 Pantoprazole Sodium (Pantoprazole 40 Mg Tab) 40 mg PO DAILYBB [facility]OBBI Stop: 03/19/21 06:29 Last Admin: 02/17/21 05:40 Dose: 40 mg Documented by: Pyridostigmine Crozet (Pyridostigmine Crozet 60 Mg Tab) 15 mg PO TID [facility] Stop: 03/18/21 20:59 Last Admin: 02/17/21 12:40 Dose: Not Given Documented by: Tamsulosin HCl (Tamsulosin Hcl 0.4 Mg Cap) 0.4 mg PO QDD [facility] Stop: 03/18/21 19:26 Last Admin: 02/16/21 21:23 Dose: 0.4 mg Documented by: (1) Urinary tract infection Hematuria presence: with hematuria Urinary tract infection type: site unspecified Qualified Code(s): N39.0 - Urinary tract infection, site not specified; R31.9 - Hematuria, unspecified
[2021-02-17] MEDS: POTASSIUM CHLORIDE / WTR 10 MEQ/100 ML PLCT IV SCH ×2 (14:10→15:12)
[2021-02-17 14:56] LABS: Urine Potassium 17.9 mmol/L
--- NOTE | 2021-02-17 14:58 | Ultrasound Report ---
US renal/blad retro comp CLINICAL HISTORY: ARF r/o hydronephrosis TECHNIQUE: Multiple sonographic real-time images of the kidneys and bladder were obtained. COMPARISON: None available at the time of this dictation. FINDINGS: The right kidney measures 11.2 cm in length, and the left kidney measures 12.2 cm in length. The right kidney is normal in size, contour, cortical thickness, and echogenicity. No hydronephrosis is identified. No perinephric fluid collection is seen. The left kidney is normal in size, contour, cortical thickness and echogenicity. No hydronephrosis i s identified. No perinephric fluid collection is seen. The bladder is collapsed with a Chambers catheter in place. No large intraluminal mass is seen. IMPRESSION: Unremarkable renal ultrasound. In particular, no evidence of hydronephrosis. ACT 112: Negative or not required by law. Electronically signed by: Jeff Manzo M.D. 02/17/2021 2:57 PM
[2021-02-17] MEDS ORDERED: PROMETHAZINE HCL 25 MG SUPP PR ONE (15:30)
--- NOTE | 2021-02-17 16:56 | Electrocardiogram Report ---
Test Reason : Blood Pressure : / mmHG Vent. Rate : 063 BPM Atrial Rate : 056 BPM P-R Int : 000 ms QRS Dur : 148 ms QT Int : 542 ms P-R-T Axes : 000 -58 104 degrees QTc Int : 554 ms Sinus bradycardia Premature atrial complexes Left axis deviation Right bundle branch block Abnormal ECG No previous ECGs available Confirmed by Cristino Guajardo ([id number]) on 02/17/2021 4:56:12 PM Referred By: Confirmed By:Cristino Guajardo
[2021-02-17 18:05] LABS: Partial Thromboplastin Ratio 2.6
[2021-02-17] MEDS: TAMSULOSIN HCL 0.4 MG CAP PO SCH (18:06)
[2021-02-17 19:48] LABS: Partial Thromboplastin Time 69.2 Seconds (21.0-31.0)
[2021-02-17] MEDS: METOCLOPRAMIDE HCL INJ 5 MG/ML 2 ML VIAL IV PRN (20:00)
--- NOTE | 2021-02-17 20:24 | Consultation Report ---
NEPHROLOGY CONSULTATION NOTE DATE OF SERVICE: 02/17/2021 REASON FOR CONSULTATION: Acute renal failure. HISTORY OF PRESENT ILLNESS: The patient is an 80-year-old male who had a normal creatinine of 1.0 just a few days ago on 02/12. He was sent over from the [facility] because of worsening renal failure. He was noted to have a creatinine of 7.6. So, essentially it has gone up from 1.0 to 7.6 in the span of 4 days. The patient does have significant comorbidities including type 2 diabetes, status post AAA repair, recent COVID infection, pulmonary embolism with recent start of anticoagulation on Eliquis. He was admitted in [facility] 01/20 to 01/23 for COVID pneumonia and acute PE. He was admitted again in [facility] between 02/08 and 02/12 for urinary tract infection and after that admission, he was sent over to [facility] for rehab. The patient has been receiving multiple different types of antibiotics for the last few weeks. He did have a Chambers catheter placed with very little urine return. Urinalysis appears to be quite active sediment. He did have low potassium and low magnesium and both have been replaced. He is currently getting IV antibiotics with IV Zosyn as well as normal saline at 125 mL per hour. He is currently hemodynamically stable with good blood pressure and on room air. ALLERGIES: MILK, ONION, AND PORK DERIVATIVES. MEDICATIONS: Home medication list was reviewed in detail and is as per the reconciliation list. He has had a significant medication change in the last few weeks because of multiple hospitalizations and Emergency Department visit. He was not on any JULIOCESAR or ARB or any type of diuretics. He has received amoxicillin, Augmentin, ampicillin as his antibiotics in the last few weeks. PAST MEDICAL AND SURGICAL HISTORY: COVID-19 pneumonia in 01/2021, type 2 diabetes - on Jardiance, dyslipidemia, recent history of pulmonary embolism with recent start of Eliquis, hypertension, myasthenia gravis, osteoarthritis, paroxysmal AFib, status post AAA repair. FAMILY HISTORY: Negative for renal disease or dialysis. SOCIAL HISTORY: Former smoker. It does appear he takes some oxygen, but he was unsure. REVIEW OF SYSTEMS: At this point, he does not really complain of much symptoms. Denies nausea, vomiting, chest pain, shortness of breath, orthopnea, PND, major loss of appetite, nausea, vomiting, or diarrhea. PHYSICAL EXAMINATION: GENERAL: Elderly white male who does not appear to be in any respiratory distress at this time. He was able to tell fairly accurate account of his medical problem. VITAL SIGNS: Blood pressure is 115/49, pulse was 75, temperature 36.7, 92% on room air. HEENT: Mucous membrane is moist. NECK: Supple. No jugular venous distention. CHEST: Bilaterally clear to auscultation. CARDIOVASCULAR: S1 and S2, regular. ABDOMEN: Soft, nontender. EXTREMITIES: Show no edema. ASSESSMENT AND PLAN: An 80-year-old male who was sent over from [facility] because of worsening renal failure. I have been consulted for acute renal failure. Acute renal failure: The rise of the creatinine has been fairly fast as it had gone from 1.0 on 02/12/2021 to 7.___ in a span of 4 days. Such rapid rise of creatinine does not have too many causes. Almost always this is either acute tubular necrosis or acute obstructive uropathy. Given this, we will rule out with renal ultrasound. Urine sediment is quite active and correlates more with acute tubular necrosis, which happened within the last few days. Most likely, he had an ischemic injury to his renal tubular cells as he would be very susceptible given underlying disease and multiple recent antibiotic exposure as well as acute illnesses. Other possibilities are acute interstitial nephritis secondary to various antibiotics/infection. RECOMMENDATIONS: 1. Continue IV fluid at a slightly low rate of 75 mL per hour. 2. Urgent renal ultrasound as it is critical to rule out significant obstructive uropathy. 3. Input/output charting. 4. Avoid nephrotoxic agents including JULIOCESAR inhibitor, ARB, contrast agents and NSAIDs. 5. Creatinine went down slightly from yesterday to this morning, which is somewhat of a good sign. He does not appear to be in need of dialysis at this time, but we cannot rule out that he will need it during this admission. I did discuss with the patient that there is a chance he may need dialysis support in the coming days. He was agreeable to dialysis if such need arise. Continue to monitor electrolytes carefully. His calcium and magnesium were both low and obviously are interrelated. I would give one more dose of IV magnesium as well as calcium to correct the electrolytes as well as potassium. Continue daily labs. Job ID: [id number] [facility]
[2021-02-17] MEDS: ATORVASTATIN 10 MG TAB PO SCH (20:56)
[2021-02-18 02:57] LABS: Partial Thromboplastin Ratio 2.8
[2021-02-18 03:04] LABS: Partial Thromboplastin Time 72.9 Seconds (21.0-31.0)
[2021-02-18] MEDS: SODIUM CHLORIDE 0.9% 1000ML 1,000 ML IV SCH ×2 (04:53→08:26)
[2021-02-18] MEDS: PANTOprazole 40 MG TAB PO SCH (05:47)
[2021-02-18] MEDS: azaTHIOprine 25 MG TAB PO SCH (08:24)
[2021-02-18] MEDS: PYRIDOSTIGMINE BROMIDE 60 MG TAB PO SCH ×3 (08:24→21:25)
[2021-02-18] MEDS: METOPROLOL TARTRATE 25 MG TAB PO SCH ×2 (08:25→21:25)
[2021-02-18] MEDS ORDERED: GLUCOSE 40% GEL 15 GM TUBE PO PRN (09:03)
[2021-02-18] MEDS ORDERED: GLUCOSE 10 TABS/TUBE PO PRN (09:03)
[2021-02-18] MEDS ORDERED: CARBOHYDRATES FOR HYPOGLYCEMIA PO PRN (09:03)
[2021-02-18] MEDS ORDERED: GLUCAGON FOR INJ 1 MG VIAL SQ PRN (09:03)
[2021-02-18] MEDS ORDERED: DEXTROSE 50% 50 ML SYRINGE IV PRN (09:03)
[2021-02-18 09:17] LABS: Basophils # (auto) 0.01 K/uL (0-0.2); Basophils % (auto) 0.2 %; Eosinophils # (auto) 0.12 K/uL (0-0.5); Eosinophils % (auto) 2.7 %; Hematocrit (blood only) 30.3 % (42-52); Hemoglobin 10.1 g/dL (14.0-18.0); Immature Granulocytes # (auto) 0.06 K/uL (0.00-0.02); Immature Granulocytes % (auto) 1.3 %; Lymphocytes # (auto) 0.99 K/uL (1.2-3.4); Lymphocytes % (auto) 22.1 %; Mean Corpuscular Hemoglobin 30.5 pg (25-34); Mean Corpuscular Hgb Conc 33.3 g/dL (32-36); Mean Corpuscular Volume 91.5 fL (80-100); Mean Platelet Volume 10.5 fL (7.4-10.4); Monocytes # (auto) 0.35 K/uL (0.11-0.59); Monocytes % (auto) 7.8 %; Neutrophils # (auto) 2.94 K/uL (1.4-6.5); Neutrophils % (auto) 65.9 %; Platelet Count 352 K/uL (130-400); RDW Coefficient of Variation 15.6 % (11.5-14.5); RDW Standard Deviation 52.5 fL (36.4-46.3); Red Blood Count 3.31 M/uL (4.7-6.1); White Blood Count 4.47 K/uL (4.8-10.8)
[2021-02-18 09:41] LABS: Partial Thromboplastin Ratio 2.1
[2021-02-18 09:42] LABS: Partial Thromboplastin Time 54.4 Seconds (21.0-31.0)
[2021-02-18 09:59] LABS: Albumin Level 1.1 gm/dl (3.4-5.0); BUN Creatinine Ratio 5.7 (10-20); Calcium 7.4 mg/dl (8.5-10.1); Est GFR (African American) 7.3 ml/min; Est GFR (Non-African American) 6.3 ml/min; Magnesium 2.1 mg/dl (1.8-2.4)
[2021-02-18] MEDS: PIPERACILLIN/TAZOBACTAM 3.375 GM in DEXTROSE 5% 100 ML IV SCH ×2 (10:22→21:22)
[2021-02-18] MEDS: HEPARIN SODIUM/DEXTROSE 25,000 UNITS/500 ML BAG IV SCH (10:24)
[2021-02-18] MEDS ORDERED: CALCIUM GLUCONATE 10% 2,000 MG in SODIUM CHLORIDE 0.9% 50 ML IV ONE (10:34)
--- NOTE | 2021-02-18 10:34 | Nephrology Progress Note ---
Date of Service February 18, 2021 Assessment & Plan Admission and Anticipated Discharge Date Admission Date: February 16, 2021 Subjective No new issues. slighty more urine now PHYSICAL EXAMINATION: GENERAL: Elderly white male who does not appear to be in any respiratory distress at this time. He was able to tell fairly accurate account of his medical problem. HEENT: Mucous membrane is moist. NECK: Supple. No jugular venous distention. CHEST: Bilaterally clear to auscultation. CARDIOVASCULAR: S1 and S2, regular. ABDOMEN: Soft, nontender. EXTREMITIES: Trace to 1+ edema. ASSESSMENT AND PLAN: An 80-year-old male who was sent over from [facility] because of worsening renal failure. I have been consulted for acute renal failure. Acute renal failure: The rise of the creatinine has been fairly fast as it had gone from 1.0 on 02/12/2021 to 7+ in a span of 4 days. ARFsec to acute tubular necrosis. Urine sediment is quite active and correlates more with acute tubul ar necrosis, which happened within the last few days. Most likely, he had an ischemic injury to his renal tubular cells as he would be very susceptible given underlying disease and multiple recent antibiotic exposure as well as acute illnesses. Other possibilities are acute interstitial nephritis secondary to various antibiotics/infection. RECOMMENDATIONS: 1. stop iv fluid--now has edema and needing o2. 2. No hydronephrosis on the renal ultrasound 3. Input/output charting. 4. Avoid nephrotoxic agents including JULIOCESAR inhibitor, ARB, contrast agents and NSAIDs. 5. Creatinine again went down slightly from yesterday to this morning, which is somewhat of a good sign. He does not appear to be in need of dialysis at this time, but we cannot rule out that he will need it during this admission. I did discuss with the patient that there is a chance he may need dialysis support in the coming days. He was agreeable to dialysis if such need arise. Continue to monitor electrolytes carefully. His calcium and was low. I would give one more dose of IV calcium to correct the electrolytes as well as potassium. Continue daily labs. Results & Data ([facility]) Vital Signs (Past 12 Hours) Vital Signs Temp Pulse Resp BP Pulse Ox 02/18/21 07:43 36.5 C 64 20 114/59 L 98 02/18/21 03:39 36.5 C 79 20 111/60 98 02/17/21 23:09 36.5 C 62 18 107/51 L 96
--- NOTE | 2021-02-18 12:01 | Electrocardiogram Report ---
Test Reason : Blood Pressure : / mmHG Vent. Rate : 066 BPM Atrial Rate : 082 BPM P-R Int : 000 ms QRS Dur : 138 ms QT Int : 504 ms P-R-T Axes : 000 -58 105 degrees QTc Int : 528 ms Sinus bradycardia Premature atrial complexes Right bundle branch block Left anterior fascicular block Bifascicular block Abnormal ECG When compared with ECG of 16-FEB-2021 12:23, (unconfirmed) No significant change was found Confirmed by Cristino Guajardo ([id number]) on 02/18/2021 12:01:04 PM Referred By: Milan Andrews Confirmed By:Cristino Guajardo
[2021-02-18] MEDS: INSULIN ASPART 100 UNITS/ML 3 ML PEN SC SCH ×3 (13:13→22:21)
[2021-02-18] MEDS: POTASSIUM CHLORIDE 10 MEQ TABCR PO SCH ×2 (14:50→21:25)
[2021-02-18] MEDS: TAMSULOSIN HCL 0.4 MG CAP PO SCH (17:40)
--- NOTE | 2021-02-18 19:15 | Hospitalist Progress Note ---
Date of Service February 18, 2021 Assessment & Plan (1) Acute renal failure due to tubular necrosis: Plan: Obstruction was ruled out w renal ultrasound. Etiology likely ATN. Hemodialysis if needed, defer to nephro. For now cont renal diet, electrolyte correction as needed, renal diet and NSS. Metabolic acidosis on labwork. Acute renal failure is the likely cause for nausea, however, consider additional imaging of abdomen if this doesn't improve with treatment. (2) Anemia: Plan: -likely multifactorial including kidney disease, inflammation from multiple chronic medical problems and persistent daily phlebotomy for the past month. -no signs of bleeding -follow CBC, transfuse PRN (3) History of COVID-19: Plan: -recent admissions to [facility] twice in Jan per HPI -currently saturating well on 2L (started during previous admission-residual hypoxia since discharge), previously treated for covid-19 at OSH one month ago. (4) Urinary tract infection: Plan: -recently had enterococcus UTI and 1/2 blood cultures positive for enterococcus -received IV ampicillin and was to transition to Augmentin -cont Zosyn pending clinical improvement and negative cultures. (5) History of pulmonary embolism: Plan: -recent PE diagnosis one month ago, possibly provoked from covid illness, given renal failure, stop Eliquis and start IV heparin, request records from outside hospital. (6) DM type 2 (diabetes mellitus, type 2): Plan: -hgb a1c 6.7 12/2020, will place on diabetic diet and cont Novolog as needed for BSG >200. (7) Paroxysmal A-fib: Plan: -rate controlled on metoprolol, heparin for stroke prophylaxis. (8) Myasthenia gravis: Plan: -continue azathioprine and pyridostigmine renally dosed, NIFs are nomal and there is no evidence of myasthenia crisis (9) DVT prophylaxis: Plan: cont IV heparin while in renal failure Full Dispo-back to [facility] once renal failure resolves. Zuri Curry DO [facility] Hospitalist Admission and Anticipated Discharge Date Admission Date: February 16, 2021 Subjective 80 yo M with multiple recent hospitalizations for covid, afib with RVR, blood and urine infections and PE now presenting from [facility] rehab with malaise nausea and acuute renal failure. He is persistently nauseous today. He otherwise denies CP, SOB, abdominal pain or other issues today. He is not eating much 2/2 nausea. Review of Systems Review of Systems: At least ten systems were reviewed and negative except as indicated in HPI above. Physical Exam Physical Exam: CONSTITUTIONAL: WNWD, vitals as above, generally ill- appearing, NAD EYES: normal conjunctivae, no scleral icterus ENT: external ear and nose normal, MMM NECK: trachea midline RESPIRATORY: clear to auscultation bilaterally, no crackles, rales or wheezes, normal respiratory effort CARDIOVASCULAR: regular rate and rhythm, S1 and 2 heard without murmurs, gallops or rubs, no JVD, no peripheral edema GASTROINTESTINAL: soft, nontender, ND, no guarding MUSCULOSKELETAL: generalized weakness, head is normocephalic and atraumatic SKIN: warm and dry NEUROLOGIC: No facial palsy, no dysarthria. CN 2-12 grossly intact, normal cognition, normal speech, no tremor. No gross focal deficits. PSYCHIATRIC: alert cooperative and oriented to person, place and time. Euthymic mood, makes good eye contact, language grossly intact, recent and remote memory grossly intact. Results & Data Results & Data ([facility]) Vital Signs (Past 12 Hours) Vital Signs Temp Pulse Resp BP Pulse Ox 02/18/21 15:48 36.4 C L 92 H 16 109/63 98 02/18/21 11:16 36.5 C 84 20 106/56 L 95 02/18/21 07:43 36.5 C 64 20 114/59 L 98 Laboratory Results Short CBC 02/18/21 Range/Units 08:38 WBC 4.47 L (4.8-10.8) K/uL Hgb 10.1 L (14.0-18.0) g/dL Hct 30.3 L (42-52) % Plt Count 352 (130-400) K/uL BMP 02/18/21 08:38 Sodium 140 Potassium 3.0 L Chloride 111 H Carbon Dioxide 17 L BUN 42 H Creatinine 7.34 H* D Glucose 90 Calcium 7.4 L Liver Function 02/18/21 Range/Units 08:38 Albumin 1.1 L (3.4-5.0) gm/dl Medications Administered Current Inpatient Medications Acetaminophen (Acetaminophen 325 Mg Tab) 650 mg PO Q8H PRN PRN Reason: Pain or Fever Stop: 03/18/21 19:26 Atorvastatin Calcium (Atorvastatin 10 Mg Tab) 10 mg PO HS [facility] Stop: 03/18/21 20:59 Last Admin: 02/17/21 20:56 Dose: 10 mg Documented by: Azathioprine (Azathioprine 25 Mg Tab) 75 mg PO DAILY [facility]BI Stop: 03/19/21 08:59 Last Admin: 02/18/21 08:24 Dose: 75 mg Documented by: Dextrose (Dextrose 50% 50 Ml Syringe) 25 - 50 ml IV UD PRN; Protocol PRN Reason: Hypoglycemia Protocol Stop: 03/20/21 09:02 Glucagon (Glucagon For Inj 1 Mg Vial) 1 mg SQ UD PRN; Protocol PRN Reason: Hypoglycemia Protocol Stop: 03/20/21 09:02 Glucose (Glucose 10 Tabs/Tube) 4 - 8 tabs PO UD PRN; Protocol PRN Reason: Hypoglycemia Protocol Stop: 03/20/21 09:02 Glucose (Glucose 40% Gel 15 Gm Tube) 15 - 30 gm PO UD PRN; Protocol PRN Reason: Hypoglycemia Protocol Stop: 03/20/21 09:02 Heparin Sodium/Dextrose (Heparin Sodium/Dextrose) 25,000 units in 500 mls @ 20 mls/hr IV .Q24H [facility]OBBI; Protocol Stop: 03/18/21 17:59 Last Admin: 02/18/21 10:24 Dose: Not Given Documented by: Piperacillin Sod/Tazobactam (Sod 3.375 gm/ Dextrose) 115 mls @ 28.75 mls/hr IV Q12H [facility]; Protocol Stop: 02/20/21 21:59 Last Infusion: 02/18/21 14:44 Dose: Infused Documented by: Insulin Aspart (Insulin Aspart 100 Units/Ml 3 Ml Pen) 0 units SC ACHS [facility] Stop: 03/20/21 11:29 Last Admin: 02/18/21 17:40 Dose: Not Given Documented by: Metoclopramide HCl (Metoclopramide Hcl Inj 5 Mg/Ml 2 Ml Vial) 5 mg IV Q6H PRN PRN Reason: NAUSEA/VOMITING Stop: 03/19/21 19:46 Last Admin: 02/17/21 20:00 Dose: 5 mg Documented by: Metoprolol Tartrate (Metoprolol Tartrate 25 Mg Tab) 25 mg PO BID [facility] Stop: 03/18/21 20:59 Last Admin: 02/18/21 08:25 Dose: 25 mg Documented by: Miscellaneous (Carbohydrates For Hypoglycemia ) 15 - 30 gm PO UD PRN PRN Reason: Hypoglycemia Protocol Stop: 03/20/21 09:02 Miscellaneous Information (Piperacill/Tazobac Consult Active) 1 ea N/A UD PRN PRN Reason: Consult Stop: 03/18/21 19:26 Pantoprazole Sodium (Pantoprazole 40 Mg Tab) 40 mg PO DAILYBB [facility] Stop: 03/19/21 06:29 Last Admin: 02/18/21 05:47 Dose: 40 mg Documented by: Potassium Chloride (Potassium Chloride 10 Meq Tabcr) 30 meq PO TID [facility] Stop: 03/20/21 13:59 Last Admin: 02/18/21 14:50 Dose: 30 meq Documented by: Pyridostigmine [place] (Pyridostigmine [place] 60 Mg Tab) 15 mg PO TID [facility] Stop: 03/18/21 20:59 Last Admin: 02/18/21 14:50 Dose: 15 mg Documented by: Tamsulosin HCl (Tamsulosin Hcl 0.4 Mg Cap) 0.4 mg PO QDD [facility] Stop: 03/18/21 19:26 Last Admin: 02/18/21 17:40 Dose: 0.4 mg Documented by: (1) Urinary tract infection Hematuria presence: with hematuria Urinary tract infection type: site unspecified Qualified Code(s): N39.0 - Urinary tract infection, site not specified; R31.9 - Hematuria, unspecified
[2021-02-18] MEDS: ATORVASTATIN 10 MG TAB PO SCH (21:24)
[2021-02-19] MEDS: HEPARIN SODIUM/DEXTROSE 25,000 UNITS/500 ML BAG IV SCH ×2 (03:00→17:01)
[2021-02-19] MEDS: PANTOprazole 40 MG TAB PO SCH (06:14)
[2021-02-19 06:47] LABS: Hemoglobin 9.5 g/dL (14.0-18.0); Mean Corpuscular Hemoglobin 29.8 pg (25-34); Mean Corpuscular Hgb Conc 32.8 g/dL (32-36); Mean Corpuscular Volume 90.9 fL (80-100); Mean Platelet Volume 10.1 fL (7.4-10.4); Platelet Count 367 K/uL (130-400); RDW Coefficient of Variation 15.7 % (11.5-14.5); RDW Standard Deviation 52.4 fL (36.4-46.3); Red Blood Count 3.19 M/uL (4.7-6.1); White Blood Count 4.21 K/uL (4.8-10.8)
[2021-02-19 07:07] LABS: Partial Thromboplastin Ratio 1.9
[2021-02-19 07:10] LABS: Partial Thromboplastin Time 49.4 Seconds (21.0-31.0)
[2021-02-19 07:25] LABS: BUN Creatinine Ratio 6.2 (10-20); Calcium 7.9 mg/dl (8.5-10.1); Creatinine Clr Calc Pharmacy 10.2 ml/min; Est GFR (African American) 7.4 ml/min; Est GFR (Non-African American) 6.4 ml/min; Magnesium 1.9 mg/dl (1.8-2.4); Phosphorus 4.8 mg/dl (2.5-4.9); Potassium 3.5 mmol/L (3.5-5.1)
[2021-02-19] MEDS: METOPROLOL TARTRATE 25 MG TAB PO SCH ×2 (08:33→20:10)
[2021-02-19] MEDS: azaTHIOprine 25 MG TAB PO SCH (08:33)
[2021-02-19] MEDS: POTASSIUM CHLORIDE 10 MEQ TABCR PO SCH ×3 (08:34→20:09)
[2021-02-19] MEDS: PYRIDOSTIGMINE BROMIDE 60 MG TAB PO SCH ×3 (08:34→20:11)
[2021-02-19] MEDS: INSULIN ASPART 100 UNITS/ML 3 ML PEN SC SCH ×4 (08:46→20:13)
[2021-02-19] MEDS: PIPERACILLIN/TAZOBACTAM 3.375 GM in DEXTROSE 5% 100 ML IV SCH ×2 (09:59→22:37)
--- NOTE | 2021-02-19 10:33 | Nephrology Progress Note ---
Date of Service February 19, 2021 Assessment & Plan Admission and Anticipated Discharge Date Admission Date: February 16, 2021 Subjective Subjective No new issues. slightly more urine now and creat down a bit PHYSICAL EXAMINATION: GENERAL: Elderly white male who does not appear to be in any respiratory distress at this time. He was able to tell fairly accurate account of his medical problem. HEENT: Mucous membrane is moist. NECK: Supple. No jugular venous distention. CHEST: Bilaterally clear to auscultation. CARDIOVASCULAR: S1 and S2, regular. ABDOMEN: Soft, nontender. EXTREMITIES: Trace to 1+ edema. ASSESSMENT AND PLAN: An 80-year-old male who was sent over from [facility] because of worsening renal failure. I have been consulted for acute renal failure. Acute renal failure: The rise of the creatinine has been fairly fast as it had gone from 1.0 on 02/12/2021 to 7+ in a span of 4 days. ARFsec to acute tubular necrosis. Urine sediment is quite active and correlates more with acute tubular necrosis, which happened within the last few days. Most likely, he had an ischemic injury to his renal tubular cells as he would be very susceptible given underlying disease and multiple recent antibiotic exposure as well as acute illnesses. Other possibilities are acute interstitial nephritis secondary to various antibiotics/infection. RECOMMENDATIONS: 1. No iv fluid--now has edema and needing o2. 2. No hydronephrosis on the renal ultrasound 3. Input/output charting. 4. Avoid nephrotoxic agents including JULIOCESAR inhibitor, ARB, contrast agents and NSAIDs. 5. Creatinine again went down slightly from yesterday to this morning, which is somewhat of a good sign. He does not appear to be in need of dialysis at this time, but we cannot rule out that he will need it during this admission. I did discuss with the patient that there is a chance he may need dialysis support in the coming days. He was agreeable to dialysis if such need arise. Continue to monitor electrolytes carefully. His calcium was low and bicarb dropping from ARF. I would give one more dose of IV calcium to correct and oral Bicarb 650 bid. Continue daily labs. Results & Data ([facility]) Vital Signs (Past 12 Hours) Vital Signs Temp Pulse Resp BP Pulse Ox 02/19/21 07:36 36.6 C 59 L 18 122/66 98 02/19/21 04:20 36.4 C L 61 18 121/58 L 97 02/18/21 23:16 36.4 C L 58 L 20 110/62 95
[2021-02-19] MEDS ORDERED: CALCIUM GLUCONATE 10% 2,000 MG in SODIUM CHLORIDE 0.9% 50 ML IV ONE (10:45)
[2021-02-19] MEDS: SODIUM BICARBONATE 650 MG TAB PO SCH ×2 (12:06→20:10)
[2021-02-19] MEDS ORDERED: PROMETHAZINE HCL 6.25 MG in SODIUM CHLORIDE 0.9% 50 ML IV STA (17:51)
[2021-02-19] MEDS: TAMSULOSIN HCL 0.4 MG CAP PO SCH (18:20)
[2021-02-19] MEDS: ATORVASTATIN 10 MG TAB PO SCH (20:08)
--- NOTE | 2021-02-19 23:25 | Hospitalist Progress Note ---
Date of Service February 19, 2021 Assessment & Plan (1) Acute renal failure due to tubular necrosis: Plan: Etiology likely ATN which could be multifactorial Creatinine on admission 7.7 Renal ultrasound unremarkable renal ultrasound. In particular, no evidence of hydronephrosis. Creatinine level beginning January was 1.1 at [facility] Nephrology on board Recommended no IV fluids due to edema Avoid any nephrotoxic agent such as JULIOCESAR inhibitor, NSAIDs Creatinine slightly trending down to 7.2 Continue monitor BMP closely (2) Anemia: Plan: -likely multifactorial including kidney disease, inflammation from multiple chronic medical problems and persistent daily phlebotomy for the past month. -no signs of bleeding -Hemoglobin stable at 9.5 (3) History of COVID-19: Plan: -recent admissions to [facility] twice in Jan per HPI and recently treated for COVID-19 about 2 to 3 weeks ago -Currently saturating well on room air (4) Urinary tract infection: Plan: Recent urine culture in [facility] grew Enterococcus faecalis again on 02/08 blood culture grew Enterococcus faecalis Hospitalist provider at [facility] discussed with ID.recommended ampicillin x4 days then once completed to do Augmentin for an additional 7 more days Blood culture on admission showed no growth Has been on IV Zosyn x4 days (5) History of pulmonary embolism: Plan: -recent PE diagnosis one month ago, possibly provoked from covid illness, -Due to recent decrease in renal function with creatinine above 7 we will hold on Eliquis and transition to IV heparin during the hospital course (6) DM type 2 (diabetes mellitus, type 2): Plan: -hgb a1c 6.7 12/2020, will place on diabetic diet and cont Novolog as needed for BSG >200. (7) Paroxysmal A-fib: Plan: -rate controlled on metoprolol, heparin for stroke prophylaxis. (8) Myasthenia gravis: Plan: -continue azathioprine and pyridostigmine renally dosed, NIFs are nomal and there is no evidence of myasthenia crisis (9) DVT prophylaxis: Plan: cont IV heparin while in renal failure Full Dispo-back to [facility] health once renal failure resolves. Admission and Anticipated Discharge Date Admission Date: February 16, 2021 Subjective Patient was seen and evaluated for follow-up of elevated creatinine Lying in bed with no acute distress Patient said that he feels okay saturating well on room air Denies any chest pain, palpitation, dizziness, shortness of breath. Review of Systems Review of Systems: All systems reviewed & are unremarkable except as noted in Subjective Physical Exam Physical Exam: General- No acute distress Head- atraumatic Eyes- PERRL, EOMI, ENT- oropharynx clear Neck- supple, no JVD Lungs- clear to auscultation Heart- regular rhythm; no murmur Abdomen- normal bowel sounds, soft, nontender Extremities- no calf tenderness, +edema Neuro- alert, oriented x 3; PERRL, EOMI; no facial palsy; no dysarthria Skin- warm & dry no Results & Data Results & Data ([facility]) Vital Signs (Past 12 Hours) Vital Signs Temp Pulse Resp BP Pulse Ox 02/19/21 23:17 36.5 C 64 18 126/59 L 97 02/19/21 19:13 36.8 C 68 16 116/60 98 02/19/21 15:20 36.4 C L 61 18 113/60 97 02/19/21 11:55 36.5 C 56 L 18 104/58 L 97 (1) Urinary tract infection Hematuria presence: with hematuria Urinary tract infection type: site unspecified Qualified Code(s): N39.0 - Urinary tract infection, site not specified; R31.9 - Hematuria, unspecified
[2021-02-20] MEDS: PANTOprazole 40 MG TAB PO SCH (05:39)
[2021-02-20 07:12] LABS: Partial Thromboplastin Ratio 1.8
[2021-02-20 07:21] LABS: Partial Thromboplastin Time 48.4 Seconds (21.0-31.0)
[2021-02-20 08:21] LABS: Hematocrit (blood only) 29.2 % (42-52); Hemoglobin 9.6 g/dL (14.0-18.0); Mean Corpuscular Hemoglobin 29.5 pg (25-34); Mean Corpuscular Hgb Conc 32.9 g/dL (32-36); Mean Corpuscular Volume 89.8 fL (80-100); Mean Platelet Volume 10.5 fL (7.4-10.4); Platelet Count 393 K/uL (130-400); RDW Coefficient of Variation 15.9 % (11.5-14.5); RDW Standard Deviation 52.5 fL (36.4-46.3); Red Blood Count 3.25 M/uL (4.7-6.1); White Blood Count 4.56 K/uL (4.8-10.8)
[2021-02-20 09:26] LABS: BUN Creatinine Ratio 6.9 (10-20); Calcium 8.5 mg/dl (8.5-10.1); Creatinine Clr Calc Pharmacy 11.1 ml/min; Est GFR (African American) 8.2 ml/min; Est GFR (Non-African American) 7.1 ml/min; Potassium 4.5 mmol/L (3.5-5.1)
--- NOTE | 2021-02-20 09:50 | Nephrology Progress Note ---
Date of Service February 20, 2021 Assessment & Plan Admission and Anticipated Discharge Date Admission Date: February 16, 2021 Subjective Assessment & Plan Admission and Anticipated Discharge Date Admission Date: February 16, 2021 Subjective Subjective No new issues. slightly more urine now and creat down a bit PHYSICAL EXAMINATION: GENERAL: Elderly white male who does not appear to be in any respiratory d istress at this time. He was able to tell fairly accurate account of his medical problem. HEENT: Mucous membrane is moist. NECK: Supple. No jugular venous distention. CHEST: Bilaterally clear to auscultation. CARDIOVASCULAR: S1 and S2, regular. ABDOMEN: Soft, nontender. EXTREMITIES: Trace to 1+ edema. labs--creat down to 6 range. Ca normal. K normal. Still low bicarb ASSESSMENT AND PLAN: An 80-year-old male who was sent over from [facility] because of worsening renal failure. I have been consulted for acute renal failure. Acute renal failure: The rise of the creatinine has been fairly fast as it had gone from 1.0 on 02/12/2021 to 7+ in a span of 4 days. ARFsec to acute tubular necrosis. Urine sediment is quite active and correlates more with acute tubular necrosis, which happened within the last few days. Most likely, he had an ischemic injury to his renal tubular cells as he would be very susceptible given underlying disease and multiple recent antibiotic exposure as well as acute illnesses. Other possibilities are acute interstitial nephritis secondary to various antibiotics/infection. RECOMMENDATIONS: 1. No iv fluid--now has edema and needing o2. 2. No hydronephrosis on the renal ultrasound 3. Input/output charting. 4. Avoid nephrotoxic agents including JULIOCESAR inhibitor, ARB, contrast agents and NSAIDs. 5. Creatinine again went down slightly from yesterday to this morning, which is a good sign. He does not appear to be in need of dialysis at this time, but we cannot rule out that he will need it during this admission. However chances are very low that he will need it. Creat down more convincingly today. He was agreeable to dialysis if such need arise. Continue to monitor electrolytes carefully. Ca and K normal. Lower k supplement to 20 bid. No need of Ca today. bicarb dropping from ARF. Raise Bicarb to 1300 bid. Continue daily labs. Results & Data ([facility]) Vital Signs (Past 12 Hours) Vital Signs Temp Pulse Pulse Pulse Resp BP Pulse Ox 02/20/21 07:59 37.0 C 67 21 113/59 L 97 02/20/21 03:20 36.9 C 59 L 19 126/61 98 02/19/21 23:17 36.5 C 64 18 126/59 L 97 02/19/21 22:20 62
[2021-02-20] MEDS: azaTHIOprine 25 MG TAB PO SCH (09:54)
[2021-02-20] MEDS: PYRIDOSTIGMINE BROMIDE 60 MG TAB PO SCH ×3 (09:55→20:28)
[2021-02-20] MEDS: METOPROLOL TARTRATE 25 MG TAB PO SCH ×2 (09:57→20:30)
[2021-02-20] MEDS: INSULIN ASPART 100 UNITS/ML 3 ML PEN SC SCH ×4 (10:00→21:01)
[2021-02-20] MEDS: SODIUM BICARBONATE 650 MG TAB PO SCH ×2 (10:01→20:31)
[2021-02-20] MEDS: POTASSIUM CHLORIDE 10 MEQ TABCR PO SCH (10:01)
[2021-02-20] MEDS: PIPERACILLIN/TAZOBACTAM 3.375 GM in DEXTROSE 5% 100 ML IV SCH (12:09)
[2021-02-20] MEDS: TAMSULOSIN HCL 0.4 MG CAP PO SCH (16:13)
[2021-02-20] MEDS: HEPARIN SODIUM/DEXTROSE 25,000 UNITS/500 ML BAG IV SCH (18:40)
--- NOTE | 2021-02-20 19:17 | Hospitalist Progress Note ---
Date of Service February 20, 2021 Assessment & Plan (1) Acute renal failure due to tubular necrosis: Plan: Etiology likely ATN which could be multifactorial Creatinine on admission 7.7 Renal ultrasound unremarkable renal ultrasound. In particular, no evidence of hydronephrosis. Creatinine level beginning January was 1.1 at [facility] Nephrology on board Recommended no IV fluids due to edema Avoid any nephrotoxic agent such as JULIOCESAR inhibitor, NSAIDs Creatinine slightly trending down to 6.6 Continue monitor BMP closely (2) Anemia: Plan: -likely multifactorial including kidney disease, inflammation from multiple chronic medical problems and persistent daily phlebotomy for the past month. -no signs of bleeding -Hemoglobin stable at 9.6 (3) History of COVID-19: Plan: -recent admissions to [facility] twice in Jan per HPI and recently treated for COVID-19 about 2 to 3 weeks ago -Currently saturating well on room air (4) Urinary tract infection: Plan: Recent urine culture in [facility] grew Enterococcus faecalis again on 02/08 blood culture grew Enterococcus faecalis Hospitalist provider at [facility] discussed with ID.recommended ampicillin x4 days then once completed to do Augmentin for an additional 7 more days Blood culture on admission showed no growth Has been on IV Zosyn x4 days (5) History of pulmonary embolism: Plan: -recent PE diagnosis one month ago, possibly provoked from covid illness, -Due to recent decrease in renal function with creatinine above 7 we will hold on Eliquis and transition to IV heparin during the hospital course (6) DM type 2 (diabetes mellitus, type 2): Plan: -hgb a1c 6.7 12/2020, will place on diabetic diet and cont Novolog as needed for BSG >200. (7) Paroxysmal A-fib: Plan: -rate controlled on metoprolol, heparin for stroke prophylaxis. (8) Myasthenia gravis: Plan: -continue azathioprine and pyridostigmine renally dosed, NIFs are nomal and there is no evidence of myasthenia crisis (9) DVT prophylaxis: Plan: Currently on IV heparin drip Full full code Disposition We will discharge to [facility] once medically stable Admission and Anticipated Discharge Date Admission Date: February 16, 2021 Subjective Patient was seen and evaluated for follow-up of elevated creatinine Lying in bed with no acute distress Patient said that he feels okay I tried to call his Clarissa and [id number] Wilma to provide with updates with no answer Denies any chest pain, palpitation, dizziness, shortness of breath. Review of Systems Review of Systems: All systems reviewed & are unremarkable except as noted in Subjective Physical Exam Physical Exam: General- No acute distress Head- atraumatic Eyes- PERRL, EOMI, ENT- oropharynx clear Neck- supple, no JVD Lungs- clear to auscultation Heart- regular rhythm; no murmur Abdomen- normal bowel sounds, soft, nontender Extremities- no calf tenderness, +edema Neuro- alert, oriented x 3; PERRL, EOMI; no facial palsy; no dysarthria Skin- warm & dry no Results & Data Results & Data ([facility]) Vital Signs (Past 12 Hours) Vital Signs Temp Pulse Resp BP Pulse Ox 02/20/21 15:45 36.8 C 67 20 124/73 95 02/20/21 11:51 36.7 C 66 18 133/59 L 95 02/20/21 07:59 37.0 C 67 21 113/59 L 97 (1) Urinary tract infection Hematuria presence: with hematuria Urinary tract infection type: site unspecified Qualified Code(s): N39.0 - Urinary tract infection, site not specified; R31.9 - Hematuria, unspecified
[2021-02-20] MEDS: POTASSIUM CHLORIDE CRTAB 20 MEQ TABCR PO SCH (20:30)
[2021-02-20] MEDS: ATORVASTATIN 10 MG TAB PO SCH (20:31)
[2021-02-21] MEDS: PANTOprazole 40 MG TAB PO SCH (05:32)
[2021-02-21] MEDS: LOPERAMIDE HCL 2 MG CAP PO PRN (05:39)
[2021-02-21 06:32] LABS: Partial Thromboplastin Ratio 1.8
[2021-02-21 06:39] LABS: Partial Thromboplastin Time 47.9 Seconds (21.0-31.0)
[2021-02-21 07:04] LABS: BUN Creatinine Ratio 7.6 (10-20); Calcium 8.4 mg/dl (8.5-10.1); Creatinine Clr Calc Pharmacy 13.3 ml/min; Est GFR (African American) 10.2 ml/min; Est GFR (Non-African American) 8.8 ml/min; Potassium 3.8 mmol/L (3.5-5.1)
--- NOTE | 2021-02-21 09:26 | Nephrology Progress Note ---
Date of Service February 21, 2021 Assessment & Plan Admission and Anticipated Discharge Date Admission Date: February 16, 2021 Subjective Subjective No new issues. slightly more urine now and creat further down. No SOB and no o2 need PHYSICAL EXAMINATION: GENERAL: Elderly white male who does not appear to be in any respiratory distress at this time. He was able to tell fairly accurate account of his medical problem. HEENT: Mucous membrane is moist. NECK: Supple. No jugular venous distention. CHEST: Bilaterally clear to auscultation. CARDIOVASCULAR: S1 and S2, regular. ABDOMEN: Soft, nontender. EXTREMITIES: Trace to 1+ edema. labs--creat down to 5 range. Ca normal. K normal. Still low bicarb ASSESSMENT AND PLAN: An 80-year-old male who was sent over from [facility] because of worsening renal failure. I have been consulted for acute renal failure. Acute renal failure: The rise of the creatinine has been fairly fast as it had gone from 1.0 on 02/12/2021 to 7+ in a span of 4 days. ARFsec to acute tubular necrosis. Urine sediment is quite active and correlates more with acute tubular necrosis, which happened within the last few days. Most likely, he had an ischemic injury to his renal tubular cells as he would be very susceptible given underlying disease and multiple recent antibiotic exposure as well as acute illnesses. Other possibilities are acute interstitial nephritis secondary to various antibiotics/infection. RECOMMENDATIONS: 1. No iv fluid--now has edema. No need of lasix either 2. No hydronephrosis on the renal ultrasound 3. Input/output charting. 4. Avoid nephrotoxic agents including JULIOCESAR inhibitor, ARB, contrast agents and NSAIDs. 5. Creatinine again went down from yesterday to this morning, which is a good sign. at this point I am quite confident he wont need dialysis given cosiste t drop in creat and increase in uo. Continue to monitor electrolytes carefully. Ca and K normal. Lower k supplement to 20 bid. No need of Ca today. Bicarb dropping from ARF. Bicarb to 1300 bid. Continue daily labs. Results & Data ([facility]) Vital Signs (Past 12 Hours) Vital Signs Temp Pulse Pulse Pulse Resp BP Pulse Ox 02/21/21 07:25 36.8 C 79 20 142/74 H 95 02/21/21 04:00 36.4 C 73 23 129/80 96 02/20/21 23:55 36.9 C 38 L 19 136/77 95 02/20/21 22:20 53 L
[2021-02-21] MEDS: INSULIN ASPART 100 UNITS/ML 3 ML PEN SC SCH ×4 (09:41→22:24)
[2021-02-21] MEDS: PYRIDOSTIGMINE BROMIDE 60 MG TAB PO SCH ×3 (09:57→19:53)
[2021-02-21] MEDS: SODIUM BICARBONATE 650 MG TAB PO SCH ×2 (09:57→19:53)
[2021-02-21] MEDS: azaTHIOprine 25 MG TAB PO SCH (09:59)
[2021-02-21] MEDS: POTASSIUM CHLORIDE CRTAB 20 MEQ TABCR PO SCH ×2 (10:00→19:53)
[2021-02-21] MEDS: METOPROLOL TARTRATE 25 MG TAB PO SCH ×2 (10:00→19:50)
[2021-02-21] MEDS: TAMSULOSIN HCL 0.4 MG CAP PO SCH (17:15)
[2021-02-21] MEDS: ATORVASTATIN 10 MG TAB PO SCH (19:53)
[2021-02-21] MEDS: HEPARIN SODIUM/DEXTROSE 25,000 UNITS/500 ML BAG IV SCH (19:55)
--- NOTE | 2021-02-21 20:51 | Hospitalist Progress Note ---
Date of Service February 21, 2021 Assessment & Plan (1) Acute renal failure due to tubular necrosis: Plan: Etiology likely ATN which could be multifactorial Creatinine on admission 7.7 Renal ultrasound unremarkable renal ultrasound. In particular, no evidence of hydronephrosis. Creatinine level beginning January was 1.1 at [facility] Nephrology on board Recommended no IV fluids due to edema Avoid any nephrotoxic agent such as JULIOCESAR inhibitor, NSAIDs Creatinine slightly trending down to 5.5 Continue monitor BMP closely (2) Anemia: Plan: -likely multifactorial including kidney disease, inflammation from multiple chronic medical problems and persistent daily phlebotomy for the past month. -no signs of bleeding -Hemoglobin stable at 9.6 (3) History of COVID-19: Plan: -recent admissions to [facility] twice in Jan per HPI and recently treated for COVID-19 about 2 to 3 weeks ago -Currently saturating well on room air (4) Urinary tract infection: Plan: Recent urine culture in [facility] grew Enterococcus faecalis again on 02/08 blood culture grew Enterococcus faecalis Hospitalist provider at [facility] discussed with ID.recommended ampicillin x4 days then once completed to do Augmentin for an additional 7 more days Blood culture on admission showed no growth Has been on IV Zosyn x4 days (5) History of pulmonary embolism: Plan: -recent PE diagnosis one month ago, possibly provoked from covid illness, -Due to recent decrease in renal function with creatinine above 7 we will hold on Eliquis and transition to IV heparin during the hospital course (6) DM type 2 (diabetes mellitus, type 2): Plan: -hgb a1c 6.7 12/2020, will place on diabetic diet and cont Novolog as needed for BSG >200. (7) Paroxysmal A-fib: Plan: -rate controlled on metoprolol, heparin for stroke prophylaxis. (8) Myasthenia gravis: Plan: -continue azathioprine and pyridostigmine renally dosed, NIFs are nomal and there is no evidence of myasthenia crisis (9) DVT prophylaxis: Plan: Currently on IV heparin drip Full full code Disposition We will discharge to [facility] once medically stable Admission and Anticipated Discharge Date Admission Date: February 16, 2021 Subjective Patient was seen and evaluated for follow-up of elevated creatinine Lying in bed with no acute distress Patient said that he feels okay Creatinine continues to improve Denies any chest pain, palpitation, dizziness, shortness of breath. Review of Systems Review of Systems: All systems reviewed & are unremarkable except as noted in Subjective Physical Exam Physical Exam: General- No acute distress Head- atraumatic Eyes- PERRL, EOMI, ENT- oropharynx clear Neck- supple, no JVD Lungs- clear to auscultation Heart- regular rhythm; no murmur Abdomen- normal bowel sounds, soft, nontender Extremities- no calf tenderness, +edema Neuro- alert, oriented x 3; PERRL, EOMI; no facial palsy; no dysarthria Skin- warm & dry no Results & Data Results & Data ([facility]) Vital Signs (Past 12 Hours) Vital Signs Temp Pulse Pulse Resp BP Pulse Ox 02/21/21 20:34 36.5 C 75 19 131/73 02/21/21 15:13 36.5 C 46 L 19 127/64 94 02/21/21 11:56 36.4 C L 68 22 120/70 96 (1) Urinary tract infection Hematuria presence: with hematuria Urinary tract infection type: site unspecified Qualified Code(s): N39.0 - Urinary tract infection, site not specified; R31.9 - Hematuria, unspecified
[2021-02-22] MEDS: PANTOprazole 40 MG TAB PO SCH (06:19)
[2021-02-22 07:21] LABS: Hematocrit (blood only) 27.3 % (42-52); Hemoglobin 9.3 g/dL (14.0-18.0); Mean Corpuscular Hemoglobin 29.8 pg (25-34); Mean Corpuscular Hgb Conc 34.1 g/dL (32-36); Mean Corpuscular Volume 87.5 fL (80-100); Mean Platelet Volume 9.9 fL (7.4-10.4); Platelet Count 331 K/uL (130-400); RDW Coefficient of Variation 15.9 % (11.5-14.5); RDW Standard Deviation 51.8 fL (36.4-46.3); Red Blood Count 3.12 M/uL (4.7-6.1); White Blood Count 5.54 K/uL (4.8-10.8)
[2021-02-22 07:50] LABS: BUN Creatinine Ratio 8.9 (10-20); Calcium 8.3 mg/dl (8.5-10.1); Creatinine Clr Calc Pharmacy 16.9 ml/min; Est GFR (African American) 13.8 ml/min; Est GFR (Non-African American) 11.9 ml/min
[2021-02-22 07:56] LABS: Partial Thromboplastin Time 51.8 Seconds (21.0-31.0)
[2021-02-22] MEDS: PYRIDOSTIGMINE BROMIDE 60 MG TAB PO SCH ×3 (11:18→20:14)
[2021-02-22] MEDS: azaTHIOprine 25 MG TAB PO SCH (11:18)
[2021-02-22] MEDS: SODIUM BICARBONATE 650 MG TAB PO SCH ×2 (11:18→20:13)
[2021-02-22] MEDS: METOPROLOL TARTRATE 25 MG TAB PO SCH ×2 (11:19→20:10)
[2021-02-22] MEDS: POTASSIUM CHLORIDE CRTAB 20 MEQ TABCR PO SCH ×2 (11:19→20:13)
[2021-02-22] MEDS: INSULIN ASPART 100 UNITS/ML 3 ML PEN SC SCH ×4 (11:19→20:17)
--- NOTE | 2021-02-22 17:10 | Hospitalist Progress Note ---
Date of Service February 22, 2021 Assessment & Plan (1) Acute renal failure due to tubular necrosis: Plan: Etiology likely ATN which could be multifactorial Creatinine on admission 7.7 Renal ultrasound unremarkable renal ultrasound. In particular, no evidence of hydronephrosis. Creatinine level beginning January was 1.1 at [facility] Nephrology on board Recommended no IV fluids due to edema Avoid any nephrotoxic agent such as JULIOCESAR inhibitor, NSAIDs Creatinine slightly trending down to 4.35 Continue monitor BMP closely (2) Anemia: Plan: -likely multifactorial including kidney disease, inflammation from multiple chronic medical problems and persistent daily phlebotomy for the past month. -no signs of bleeding -Hemoglobin stable at 9.3 (3) History of COVID-19: Plan: -recent admissions to [facility] twice in Jan per HPI and recently treated for COVID-19 about 2 to 3 weeks ago -Currently saturating well on room air (4) Urinary tract infection: Plan: Recent urine culture in [facility] grew Enterococcus faecalis again on 02/08 blood culture grew Enterococcus faecalis Hospitalist provider at [facility] discussed with ID.recommended ampicillin x4 days then once completed to do Augmentin for an additional 7 more days Blood culture on admission showed no growth Received IV Zosyn x4 days Will continue monitor closely (5) History of pulmonary embolism: Plan: -recent PE diagnosis one month ago, possibly provoked from covid illness, -Due to recent decrease in renal function with creatinine above 7 we will hold on Eliquis and transition to IV heparin during the hospital course (6) DM type 2 (diabetes mellitus, type 2): Plan: -hgb a1c 6.7 12/2020, will place on diabetic diet and cont Novolog as needed for BSG >200. (7) Paroxysmal A-fib: Plan: -rate controlled on metoprolol, heparin for stroke prophylaxis. (8) Myasthenia gravis: Plan: -continue azathioprine and pyridostigmine renally dosed, NIFs are nomal and there is no evidence of myasthenia crisis (9) DVT prophylaxis: Plan: Currently on IV heparin drip Full full code Disposition We will discharge to [facility] once medically stable would like him to go back to [facility] rehab Admission and Anticipated Discharge Date Admission Date: February 16, 2021 Subjective Patient was seen and evaluated for follow-up of elevated creatinine Lying in bed with no acute distress watching the [employer] game Patient said that he feels okay Creatinine continues to improve Spoke to his son Ed and his Clarissa on conference call to provide updates and answered all their questions Denies any chest pain, palpitation, dizziness, shortness of breath. Review of Systems Review of Systems: All systems reviewed & are unremarkable except as noted in Subjective Physical Exam Physical Exam: General- No acute distress Head- atraumatic Eyes- PERRL, EOMI, ENT- oropharynx clear Neck- supple, no JVD Lungs- clear to auscultation Heart- regular rhythm; no murmur Abdomen- normal bowel sounds, soft, nontender Extremities- no calf tenderness, +edema Neuro- alert, oriented x 3; PERRL, EOMI; no facial palsy; no dysarthria Skin- warm & dry no Results & Data Results & Data ([facility]) Vital Signs (Past 12 Hours) Vital Signs Temp Pulse Resp BP Pulse Ox 02/22/21 14:58 36.5 C 86 20 144/89 H 95 02/22/21 12:03 36.5 C 60 18 119/74 95 02/22/21 07:57 37.2 C 67 18 142/80 H 93 (1) Urinary tract infection Hematuria presence: with hematuria Urinary tract infection type: site unspecified Qualified Code(s): N39.0 - Urinary tract infection, site not specified; R31.9 - Hematuria, unspecified
[2021-02-22] MEDS: METOCLOPRAMIDE HCL INJ 5 MG/ML 2 ML VIAL IV PRN (17:51)
[2021-02-22] MEDS: TAMSULOSIN HCL 0.4 MG CAP PO SCH (17:51)
[2021-02-22 18:25] LABS: BUN Creatinine Ratio 9.7 (10-20); Calcium 8.1 mg/dl (8.5-10.1); Est GFR (African American) 15.9 ml/min; Est GFR (Non-African American) 13.7 ml/min; Potassium 4.2 mmol/L (3.5-5.1)
[2021-02-22] MEDS: HEPARIN SODIUM/DEXTROSE 25,000 UNITS/500 ML BAG IV SCH (20:08)
[2021-02-22] MEDS: ATORVASTATIN 10 MG TAB PO SCH (20:10)
[2021-02-23] MEDS: PANTOprazole 40 MG TAB PO SCH (06:10)
[2021-02-23 07:37] LABS: Partial Thromboplastin Time 52.1 Seconds (21.0-31.0)
[2021-02-23] MEDS: INSULIN ASPART 100 UNITS/ML 3 ML PEN SC SCH ×4 (09:00→20:52)
[2021-02-23] MEDS: SODIUM BICARBONATE 650 MG TAB PO SCH ×2 (09:34→20:12)
[2021-02-23] MEDS: PYRIDOSTIGMINE BROMIDE 60 MG TAB PO SCH ×3 (09:34→20:12)
[2021-02-23] MEDS: azaTHIOprine 25 MG TAB PO SCH (09:34)
[2021-02-23] MEDS: METOPROLOL TARTRATE 25 MG TAB PO SCH ×2 (09:35→20:11)
[2021-02-23] MEDS: POTASSIUM CHLORIDE CRTAB 20 MEQ TABCR PO SCH ×2 (09:35→20:11)
--- NOTE | 2021-02-23 11:02 | Nephrology Progress Note ---
Date of Service February 23, 2021 Assessment & Plan (1) Acute renal failure due to tubular necrosis: Plan: . ARFsec to acute tubular necrosis. Urine sediment is quite active and correlates more with acute tubular necrosis.Criselda had ischemic injury to his renal tubular cells as he would be very susceptible given underlying disease and multiple recent antibiotic exposure as well as acute illnesses. Other possibilities are acute interstitial nephritis secondary to various antibiotics/infection. - sCR improving with good UOP which is re-assuring. - No iv fluid--now has edema. No need of lasix either - Input/output charting. -Avoid nephrotoxic agents including JULIOCESAR inhibitor, ARB, contrast agents and NSAIDs - Daily BMP (2) History of COVID-19: Admission and Anticipated Discharge Date Admission Date: February 16, 2021 Subjective Comfortable with no acute distress. Denies any chest pain, palpitation, dizziness, shortness of breath. Review of Systems Review of Systems: All systems reviewed & are unremarkable except as noted in HPI & below Physical Exam Physical Exam: GENERAL: Elderly white male who does not appear to be in any respiratory distress HEENT: Mucous membrane is moist. NECK: Supple. No jugular venous distention. CHEST: Bilaterally clear to auscultation. CARDIOVASCULAR: S1 and S2, regular. ABDOMEN: Soft, nontender. EXTREMITIES: Trace to 1+ edema Results & Data ([facility]) Vital Signs (Past 12 Hours) Vital Signs Temp Pulse Pulse Resp BP Pulse Ox 02/23/21 07:49 36.5 C 69 19 135/69 94 02/23/21 04:41 36.7 C 97 H 16 145/74 H 95 02/23/21 00:00 61 Laboratory Results 02/22/21 06:54 02/22/21 17:40
[2021-02-23 11:41] LABS: BUN Creatinine Ratio 10.1 (10-20); Calcium 8.2 mg/dl (8.5-10.1); Creatinine Clr Calc Pharmacy 22.3 ml/min; Est GFR (Non-African American) 16.4 ml/min
[2021-02-23] MEDS: LOPERAMIDE HCL 2 MG CAP PO PRN (17:04)
[2021-02-23] MEDS: TAMSULOSIN HCL 0.4 MG CAP PO SCH (17:05)
[2021-02-23] MEDS: ATORVASTATIN 10 MG TAB PO SCH (20:12)
[2021-02-23] MEDS: HEPARIN SODIUM/DEXTROSE 25,000 UNITS/500 ML BAG IV SCH (20:55)
--- NOTE | 2021-02-23 23:16 | Hospitalist Progress Note ---
Date of Service February 23, 2021 Assessment & Plan (1) Acute renal failure due to tubular necrosis: Plan: Etiology likely ATN which could be multifactorial Creatinine on admission 7.7 Renal ultrasound unremarkable renal ultrasound. In particular, no evidence of hydronephrosis. Creatinine level beginning January was 1.1 at [facility] Nephrology on board Recommended no IV fluids due to edema Avoid any nephrotoxic agent such as JULIOCESAR inhibitor, NSAIDs Creatinine continue trending down to 3.3 Continue monitor BMP closely (2) Anemia: Plan: -likely multifactorial including kidney disease, inflammation from multiple chronic medical problems and persistent daily phlebotomy for the past month. -no signs of bleeding -Hemoglobin stable at 9.3 (3) History of COVID-19: Plan: -recent admissions to [facility] twice in Jan per HPI and recently treated for COVID-19 about 2 to 3 weeks ago -Currently saturating well on room air (4) Urinary tract infection: Plan: Recent urine culture in [facility] grew Enterococcus faecalis again on 02/08 blood culture grew Enterococcus faecalis Hospitalist provider at [facility] discussed with ID.recommended ampicillin x4 days then once completed to do Augmentin for an additional 7 more days Blood culture on admission showed no growth Received IV Zosyn x4 days Will continue monitor closely (5) History of pulmonary embolism: Plan: -recent PE diagnosis one month ago, possibly provoked from covid illness, -Due to recent decrease in renal function with creatinine above 7 we will hold on Eliquis and transition to IV heparin during the hospital course (6) DM type 2 (diabetes mellitus, type 2): Plan: -hgb a1c 6.7 12/2020, will place on diabetic diet and cont Novolog as needed for BSG >200. (7) Diarrhea: Plan: Stool sent for C. difficile negative Patient said diarrhea is chronic and usually takes Lomotil Continue monitor electrolytes (8) Paroxysmal A-fib: Plan: -rate controlled on metoprolol, heparin for stroke prophylaxis. (9) Myasthenia gravis: Plan: -continue azathioprine and pyridostigmine renally dosed, NIFs are nomal and there is no evidence of myasthenia crisis (10) DVT prophylaxis: Plan: Currently on IV heparin drip Full full code Disposition We will discharge to [facility] once medically stable would like him to go back to [facility] rehab Admission and Anticipated Discharge Date Admission Date: February 16, 2021 Subjective Patient was seen and evaluated for follow-up of elevated creatinine Lying in bed with no acute distress Patient said that he feels okay He had 3 episodes of watery diarrhea watery diarrhea Denies any chest pain, palpitation, dizziness, shortness of breath. Review of Systems Review of Systems: All systems reviewed & are unremarkable except as noted in Subjective Physical Exam 2 Physical Exam: General- No acute distress Head- atraumatic Eyes- PERRL, EOMI, ENT- oropharynx clear Neck- supple, no JVD Lungs- clear to auscultation Heart- regular rhythm; no murmur Abdomen- normal bowel sounds, soft, nontender Extremities- no calf tenderness, +edema Neuro- alert, oriented x 3; PERRL, EOMI; no facial palsy; no dysarthria Skin- warm & dry no Results & Data Results & Data ([facility]) Vital Signs (Past 12 Hours) Vital Signs Temp Pulse Resp BP Pulse Ox 02/23/21 18:53 36.6 C 70 19 138/62 96 02/23/21 16:21 36.5 C 75 18 145/69 H 93 02/23/21 11:51 36.7 C 63 18 128/60 95 (1) Urinary tract infection Hematuria presence: with hematuria Urinary tract infection type: site un specified Qualified Code(s): N39.0 - Urinary tract infection, site not specified; R31.9 - Hematuria, unspecified
[2021-02-24 03:51] LABS: Appearance Urine Cloudy (Clear); Bilirubin Urine Negative (Negative); Blood Urine 3+ (Negative); Color Urine Yellow; Glucose Urine UA Negative (Negative); Ketones Urine Negative (Negative); Leukocyte Esterase Urine 3+ (Negative); Nitrite Urine Negative (Negative); Protein Urine Negative (Negative); Urobilinogen Urine Negative (Negative)
[2021-02-24 03:59] LABS: Bacteria Urine Negative (Negative); Epithelial Cell Urine 0-5 /lpf (0-5); WBC Urine >30 /hpf (0-5)
[2021-02-24] MEDS: PANTOprazole 40 MG TAB PO SCH (05:42)
[2021-02-24 06:25] LABS: Hematocrit (blood only) 30.5 % (42-52); Hemoglobin 10.2 g/dL (14.0-18.0); Mean Corpuscular Hemoglobin 30.1 pg (25-34); Mean Corpuscular Hgb Conc 33.4 g/dL (32-36); Mean Platelet Volume 10.6 fL (7.4-10.4); Platelet Count 302 K/uL (130-400); RDW Coefficient of Variation 16.1 % (11.5-14.5); RDW Standard Deviation 52.6 fL (36.4-46.3); Red Blood Count 3.39 M/uL (4.7-6.1); White Blood Count 6.69 K/uL (4.8-10.8)
[2021-02-24 06:48] LABS: Basophils # (auto) 0.05 K/uL (0-0.2); Basophils % (auto) 0.7 %; Eosinophils # (auto) 0.23 K/uL (0-0.5); Eosinophils % (auto) 3.4 %; Lymphocytes # (auto) 1.31 K/uL (1.2-3.4); Lymphocytes % (auto) 19.6 %; Monocytes # (auto) 0.51 K/uL (0.11-0.59); Monocytes % (auto) 7.6 %; Neutrophils # (auto) 4.19 K/uL (1.4-6.5); Neutrophils % (auto) 62.7 %
[2021-02-24 06:51] LABS: BUN Creatinine Ratio 10.6 (10-20); Calcium 8.3 mg/dl (8.5-10.1); Creatinine Clr Calc Pharmacy 28.1 ml/min; Est GFR (African American) 25.7 ml/min; Est GFR (Non-African American) 22.1 ml/min; Potassium 3.9 mmol/L (3.5-5.1)
[2021-02-24 06:56] LABS: Partial Thromboplastin Ratio 2.2
[2021-02-24 07:03] LABS: Partial Thromboplastin Time 58.7 Seconds (21.0-31.0)
[2021-02-24] MEDS: azaTHIOprine 25 MG TAB PO SCH (08:39)
[2021-02-24] MEDS: PYRIDOSTIGMINE BROMIDE 60 MG TAB PO SCH ×3 (08:39→19:59)
[2021-02-24] MEDS: METOPROLOL TARTRATE 25 MG TAB PO SCH ×2 (08:39→20:00)
[2021-02-24] MEDS: SODIUM BICARBONATE 650 MG TAB PO SCH ×2 (08:40→19:59)
[2021-02-24] MEDS: POTASSIUM CHLORIDE CRTAB 20 MEQ TABCR PO SCH ×2 (08:40→19:59)
[2021-02-24] MEDS: INSULIN ASPART 100 UNITS/ML 3 ML PEN SC SCH ×4 (08:41→21:31)
[2021-02-24] MEDS ORDERED: DIPHENOXYLATE/ATROPINE 2.5/0.025MG TAB PO ONE (18:00)
[2021-02-24] MEDS: TAMSULOSIN HCL 0.4 MG CAP PO SCH (18:32)
--- NOTE | 2021-02-24 18:32 | Hospitalist Progress Note ---
Date of Service February 24, 2021 Assessment & Plan (1) Acute renal failure due to tubular necrosis: Plan: Etiology likely ATN which could be multifactorial Creatinine on admission 7.7 Renal ultrasound unremarkable renal ultrasound. In particular, no evidence of hydronephrosis. Creatinine level beginning January was 1.1 at [facility] Nephrology on board Recommended no IV fluids due to edema Avoid any nephrotoxic agent such as JULIOCESAR inhibitor, NSAIDs Creatinine continue trending down to 2.6 Continue monitor BMP closely (2) Anemia: Plan: -likely multifactorial including kidney disease, inflammation from multiple chronic medical problems and persistent daily phlebotomy for the past month. -no signs of bleeding -Hemoglobin stable at 10.2 (3) History of COVID-19: Plan: -recent admissions to [facility] twice in Jan per HPI and recently treated for COVID-19 about 2 to 3 weeks ago -Currently saturating well on room air (4) Urinary tract infection: Plan: Recent urine culture in [facility] grew Enterococcus faecalis again on 02/08 blood culture grew Enterococcus faecalis Hospitalist provider at [facility] discussed with ID.recommended ampicillin x4 days then once completed to do Augmentin for an additional 7 more days Blood culture on admission showed no growth Received IV Zosyn x4 days stable (5) History of pulmonary embolism: Plan: -recent PE diagnosis one month ago, possibly provoked from covid illness, -Due to recent decrease in renal function with creatinine above 7 we will hold on Eliquis and transition to IV heparin during the hospital course (6) DM type 2 (diabetes mellitus, type 2): Plan: -hgb a1c 6.7 12/2020, will place on diabetic diet and cont Novolog as needed for BSG >200. (7) Diarrhea: Plan: Stool sent for C. difficile negative Patient said diarrhea is chronic and usually takes Lomotil Continue monitor electrolytes Continue Lomotil (8) Paroxysmal A-fib: Plan: -rate controlled on metoprolol, heparin for stroke prophylaxis. (9) Myasthenia gravis: Plan: -continue azathioprine and pyridostigmine renally dosed, NIFs are nomal and there is no evidence of myasthenia crisis (10) DVT prophylaxis: Plan: Currently on IV heparin drip Full full code Disposition Plan to discharge to [facility] would like him to go back to [facility] rehab Admission and Anticipated Discharge Date Admission Date: February 16, 2021 Subjective Patient was seen and evaluated for follow-up of elevated creatinine Lying in bed with no acute distress Patient said that he feels okay He continues to have diarrhea and said that he is chronic Denies any chest pain, palpitation, dizziness, shortness of breath. Review of Systems Review of Systems: All systems reviewed & are unremarkable except as noted in Subjective Physical Exam Physical Exam: General- No acute distress Head- atraumatic Eyes- PERRL, EOMI, ENT- oropharynx clear Neck- supple, no JVD Lungs- clear to auscultation Heart- regular rhythm; no murmur Abdomen- normal bowel sounds, soft, nontender Extremities- no calf tenderness, +edema Neuro- alert, oriented x 3; PERRL, EOMI; no facial palsy; no dysarthria Skin- warm & dry no Results & Data Results & Data ([facility]) Vital Signs (Past 12 Hours) Vital Signs Temp Pulse Resp BP Pulse Ox 02/24/21 16:00 36.4 C L 72 18 125/62 97 02/24/21 13:46 95 02/24/21 12:24 36.7 C 80 19 95/52 L 95 02/24/21 06:48 36.9 C 49 L 16 133/61 94 (1) Urinary tract infection Hematuria presence: with hematuria Urinary tract infection type: site unspecified Qualified Code(s): N39.0 - Urinary tract infection, site not specified; R31.9 - Hematuria, unspecified
[2021-02-24] MEDS: HEPARIN SODIUM/DEXTROSE 25,000 UNITS/500 ML BAG IV SCH (19:43)
[2021-02-24] MEDS: ATORVASTATIN 10 MG TAB PO SCH (20:00)
[2021-02-25] MEDS: PANTOprazole 40 MG TAB PO SCH (06:10)
[2021-02-25] MEDS: INSULIN ASPART 100 UNITS/ML 3 ML PEN SC SCH ×4 (07:38→20:57)
[2021-02-25 07:44] LABS: Partial Thromboplastin Ratio 2.2
[2021-02-25 07:53] LABS: Partial Thromboplastin Time 58.7 Seconds (21.0-31.0)
[2021-02-25 08:24] LABS: BUN Creatinine Ratio 10.2 (10-20); Calcium 8.2 mg/dl (8.5-10.1); Creatinine Clr Calc Pharmacy 32.8 ml/min; Est GFR (African American) 30.9 ml/min; Est GFR (Non-African American) 26.6 ml/min; Potassium 4.5 mmol/L (3.5-5.1)
[2021-02-25] MEDS: METOPROLOL TARTRATE 25 MG TAB PO SCH ×2 (08:37→21:00)
[2021-02-25] MEDS: SODIUM BICARBONATE 650 MG TAB PO SCH ×2 (08:38→21:03)
[2021-02-25] MEDS: POTASSIUM CHLORIDE CRTAB 20 MEQ TABCR PO SCH ×2 (08:38→21:01)
[2021-02-25] MEDS: azaTHIOprine 25 MG TAB PO SCH (08:38)
[2021-02-25] MEDS: PYRIDOSTIGMINE BROMIDE 60 MG TAB PO SCH ×3 (08:38→21:01)
[2021-02-25] MEDS: LOPERAMIDE HCL 2 MG CAP PO PRN (08:43)
[2021-02-25] MEDS: TAMSULOSIN HCL 0.4 MG CAP PO SCH (14:26)
--- NOTE | 2021-02-25 18:52 | Nephrology Progress Note ---
Date of Service February 25, 2021 Assessment & Plan (1) Acute renal failure due to tubular necrosis: Plan: rapidly improving nonoliguric Stage 3 ARF sec to acute tubular necrosis. peak creatinine 7.8; baseline creatinine 1.0 as recently as mid January. Urine sedim ent is quite active and correlates more with acute tubular necrosis.Criselda had ischemic injury to his renal tubular cells as he would be very susceptible given underlying disease and multiple recent antibiotic exposure as well as acute illnesses. Other possibilities are acute interstitial nephritis secondary to various antibiotics/infection. - sCR improving with good UOP which is re-assuring. - No iv fluid--now has mild edema but is on RA. No need for lasix either - Input/output charting. -Avoid nephrotoxic agents including JULIOCESAR inhibitor, ARB, contrast agents and NSAIDs - Daily BMP WILL SIGN OFF; DISCHARGE RECOMMENDATIONS: -discuss w/ neuro/pharmacy when to resume routine/non renally dosed AZA, pyridostigmine -would continue to hold SGLT2i until renal function stabilizes -recommend bmp q wed, Th until renal function stabilizes after hospital d/c -needs follow up appt with Dr Colvin [facility] nephrology after rehab discharge within 2 weeks Admission and Anticipated Discharge Date Admission Date: February 16, 2021 Subjective seen on rounds at 1430; no c/o sob or uncontrolled pain or n/v or palpitations/chest pain Review of Systems Review of Systems: All systems reviewed & are unremarkable except as noted in Subjective Physical Exam Constitutional: well developed and well nourished Eyes: EOM intact bilaterally ENMT: Ears: no external ear abnormality Nose: no external nose abnormality Mouth: + dry oral mucous membranes Neck: no nuchal rigidity Respiratory: normal respiratory effort Auscultation: + diminished lung sounds Cardiovascular: Rate/Rhythm: + irregularly irregular Heart Sounds: normal S1 and normal S2 (HS distant) Extremities: + edema (trace-1+ ) Gastrointestinal (Abdomen): Inspection/Auscultation: normal bowel sounds Percussion/Palpation: abdomen soft; abdomen nontender Musculoskeletal: Extremities: strength 5/5 throughout Skin: no rashes, warm and dry Neurologic: low, fluent speech, no tremor Genitourinary: young w/ ample urine Results & Data ([facility]) Vital Signs (Past 12 Hours) Vital Signs Temp Pulse Pulse Resp BP Pulse Ox 02/25/21 15:15 37.0 C 59 L 18 132/59 L 95 02/25/21 11:25 37.1 C 64 18 131/53 L 95 02/25/21 07:11 37.5 C 80 18 113/56 L 95 Laboratory Results 02/24/21 06:03 02/25/21 06:24
--- NOTE | 2021-02-25 20:37 | Hospitalist Progress Note ---
Date of Service February 25, 2021 Assessment & Plan (1) Acute renal failure due to tubular necrosis: Plan: Etiology likely ATN which could be multifactorial Creatinine on admission 7.7 Renal ultrasound unremarkable renal ultrasound. In particular, no evidence of hydronephrosis. Creatinine level beginning January was 1.1 at [facility] Nephrology on board Recommended no IV fluids due to edema Avoid any nephrotoxic agent such as JULIOCESAR inhibitor, NSAIDs Creatinine continue trending down to 2.2 Continue monitor BMP closely Nephrology recommended to discuss with neuro and pharmacy about when to resume routine/non renally dosed AZA, pyridostigmine would continue to hold SGLT2i until renal function stabilizes recommend bmp q mon, Thurs until renal function stabilizes after hospital d/c needs follow up appt with Nephro Dr Col[place] [facility] [place] discharge within 2 weeks Continue monitor BMP while in the ER (2) Anemia: Plan: -likely multifactorial including kidney disease, inflammation from multiple chronic medical problems and persistent daily phlebotomy for the past month. -no signs of bleeding -Hemoglobin stable at 10.2 (3) History of COVID-19: Plan: -recent admissions to [facility] twice in Jan per HPI and recently treated for COVID-19 about 2 to 3 weeks ago -Currently saturating well on room air (4) Urinary tract infection: Plan: Recent urine culture in [facility] grew Enterococcus faecalis again on 02/08 blood culture grew Enterococcus faecalis Hospitalist provider at [facility] discussed with ID.recommended ampicillin x4 days then once completed to do Augmentin for an additional 7 more days Blood culture on admission showed no growth Received IV Zosyn x4 days stable (5) History of pulmonary embolism: Plan: -recent PE diagnosis one month ago, possibly provoked from covid illness, -Due to recent decrease in renal function with creatinine above 7 we will hold on Eliquis and transition to IV heparin during the hospital course (6) DM type 2 (diabetes mellitus, type 2): Plan: -hgb a1c 6.7 12/2020, will place on diabetic diet and cont Novolog as needed for BSG >200. (7) Diarrhea: Plan: Stool sent for C. difficile negative Patient said diarrhea is chronic and usually takes Lomotil Continue monitor electrolytes Continue Lomotil prn Medical improved [address] today to school with little pulmonary edema abdominal movement reporting some body experience screen (8) Paroxysmal A-fib: Plan: -rate controlled on metoprolol, heparin for stroke prophylaxis. (9) Myasthenia gravis: Plan: -continue azathioprine and pyridostigmine renally dosed, NIFs are nomal and there is no evidence of myasthenia crisis (10) DVT prophylaxis: Plan: Currently on IV heparin drip Full full code Disposition would like him to go back to [facility] rehab Waiting for placement to [facility] for rehab Admission and Anticipated Discharge Date Admission Date: February 16, 2021 Subjective Patient was seen and evaluated for follow-up of elevated creatinine Lying in bed with no acute distress Patient said that he feels okay He said that diarrhea improved with the Lomotil Denies any chest pain, palpitation, dizziness, shortness of breath. Review of Systems Review of Systems: All systems reviewed & are unremarkable except as noted in Subjective Physical Exam Physical Exam: General- No acute distress Head- atraumatic Eyes- PERRL, EOMI, ENT- oropharynx clear Neck- supple, no JVD Lungs- clear to auscultation Heart- regular rhythm; no murmur Abdomen- normal bowel sounds, soft, nontender Extremities- no calf tenderness, +edema Neuro- alert, oriented x 3; PERRL, EOMI; no facial palsy; no dysarthria Skin- warm & dry no Results & Data Results & Data ([facility]) Vital Signs (Past 12 Hours) Vital Signs Temp Pulse Pulse Resp BP Pulse Ox 02/25/21 19:27 36.8 C 60 14 113/68 97 02/25/21 15:15 37.0 C 59 L 18 132/59 L 95 02/25/21 11:25 37.1 C 64 18 131/53 L 95 (1) Urinary tract infection Hematuria presence: with hematuria Urinary tract infection type: site unspecified Qualified Code(s): N39.0 - Urinary tract infection, site not specified; R31.9 - Hematuria, unspecified
[2021-02-25] MEDS: HEPARIN SODIUM/DEXTROSE 25,000 UNITS/500 ML BAG IV SCH (20:57)
[2021-02-25] MEDS: ATORVASTATIN 10 MG TAB PO SCH (21:02)
[2021-02-26] MEDS: PANTOprazole 40 MG TAB PO SCH (06:41)
[2021-02-26] MEDS: INSULIN ASPART 100 UNITS/ML 3 ML PEN SC SCH ×4 (06:42→21:25)
[2021-02-26 07:32] LABS: Partial Thromboplastin Ratio 2.3
[2021-02-26 07:33] LABS: Partial Thromboplastin Time 60.5 Seconds (21.0-31.0)
[2021-02-26 07:41] LABS: BUN Creatinine Ratio 8.8 (10-20); Calcium 7.9 mg/dl (8.5-10.1); Creatinine Clr Calc Pharmacy 36.6 ml/min; Est GFR (African American) 35.2 ml/min; Est GFR (Non-African American) 30.4 ml/min; Potassium 4.6 mmol/L (3.5-5.1)
[2021-02-26] MEDS: POTASSIUM CHLORIDE CRTAB 20 MEQ TABCR PO SCH ×2 (08:34→21:17)
[2021-02-26] MEDS: azaTHIOprine 25 MG TAB PO SCH (08:34)
[2021-02-26] MEDS: METOPROLOL TARTRATE 25 MG TAB PO SCH ×2 (08:34→21:17)
[2021-02-26] MEDS: PYRIDOSTIGMINE BROMIDE 60 MG TAB PO SCH ×3 (08:34→21:18)
[2021-02-26] MEDS: SODIUM BICARBONATE 650 MG TAB PO SCH ×2 (08:34→21:17)
--- NOTE | 2021-02-26 13:16 | Hospitalist Progress Note ---
Date of Service February 26, 2021 Assessment & Plan (1) Acute renal failure due to tubular necrosis: Plan: Etiology likely ATN which could be multifactorial Creatinine on admission 7.7 Renal ultrasound unremarkable renal ultrasound without evidence of hydronephrosis. Creatinine level beginning January was 1.1 at [facility] Nephrology on board. Recommended no IV fluids due to edema Avoid any nephrotoxic agent such as JULIOCESAR inhibitor, NSAIDs Creatinine continue trending down to 2 Discussed with glazing department supervisor today who recommended to discuss with pharmacy about renally dosed AZA, pyridostigmine Would continue to hold SGLT2i until renal function stabilizes Recommend bmp q mon, Thurs until renal function stabilizes after hospital d/c Needs follow up appt with Nephro Dr Vinicius MORALES after rehab discharge within 2 weeks Discussed with pharmacist. Based on patient current creatinine clearance which is above 30, can continue home dose. Patient is currently on half of home dose. Will keep patient till tomorrow to check renal function again. If continues to improve, will discharge on home dose and continue to monitor renal function as stated above. Remove Chambers (2) Anemia: Plan: likely multifactorial including kidney disease, inflammation from multiple chronic medical problems and persistent daily phlebotomy for the past month. No signs of bleeding Hemoglobin stable (3) History of COVID-19: Plan: Recent admissions to [facility] twice in Jan per HPI and recently treated for COVID-19 about 2 to 3 weeks ago Currently saturating well on room air Discussed with infection control. Okay to remove isolation (4) Urinary tract infection: Plan: Recent urine culture in [facility] grew Enterococcus faecalis again on 02/08 blood culture grew Enterococcus faecalis Hospitalist provider at [facility] discussed with ID.recommended ampicillin x4 days then once completed to do Augmentin for an additional 7 more days Blood culture on admission showed no growth Received IV Zosyn x4 days Stable (5) History of pulmonary embolism: Plan: Recent PE diagnosis one month ago, possibly provoked from covid illness, Due to recent decrease in renal function with creatinine above 7, eliquis was held and transitioned to IV heparin during the hospital course If renal function continues to improve, will resume eliquis on dc (6) DM type 2 (diabetes mellitus, type 2): Plan: Hgb a1c 6.7 12/2020, will place on diabetic diet and cont Novolog as needed for BSG >200. (7) Diarrhea: Plan: Stool sent for C. difficile negative Patient said diarrhea is chronic and usually takes Lomotil Continue monitor electrolytes Continue Lomotil prn (8) Paroxysmal A-fib: Plan: -Rate controlled on metoprolol, heparin for stroke prophylaxis. (9) Myasthenia gravis: Plan: Continue azathioprine and pyridostigmine renally dosed for now as stated above There is no evidence of myasthenia crisis (10) DVT prophylaxis: Plan: Currently on IV heparin drip Full full code Disposition Possible dc to [facility] tomorrow Admission and Anticipated Discharge Date Admission Date: February 16, 2021 Subjective 80-year-old man with past history of MG, DM type II, AAA repair, recent COVID-19 infection [01/20/2021 to 2020 at [facility]] PE on Eliquis, paroxysmal A. fib, UTI [02/08/2021 to 02/12/2021 for Enterococcus UTI] and other problems who presented from [facility] for worsening renal failure. Being treated for acute renal failure due to tubular necrosis Patient seen and examined today. Patient denies any new complaints today. Reports only leg swelling Review of Systems Constitutional: no fever, no chills and no fatigue Respiratory: no cough and no dyspnea Cardiovascular: + edema; no chest pain and no lightheadedness Gastrointestinal: no abdominal pain, no nausea, no vomiting and no diarrhea/loose stools Neurologic: no dizziness, no syncope and no headache(s) Psychiatric: no depression and no anxiety Physical Exam Constitutional: + well hydrated; no acute distress Eyes: PERRL, conjunctivae normal, anicteric sclerae ENMT: external ear and nose normal, oropharynx normal Respiratory: normal respiratory effort, lungs clear to auscultation Cardiovascular: RRR, S1-S2 Gastrointestinal (Abdomen): normal bowel sounds, soft, nontender, no hepatosplenomegaly Musculoskeletal: Bilateral pitting pedal edema Neurologic: PERRL, EOMI, accommodation nl, no face palsy, no dysarthria Psychiatric: A+Ox3, euthymic affect Genitourinary: Chambers in situ Results & Data Results & Data ([facility]) Vital Signs (Past 12 Hours) Vital Signs Temp Pulse Pulse Resp BP Pulse Ox 02/26/21 12:07 36.8 C 62 20 109/75 95 02/26/21 08:08 65 02/26/21 07:55 36.4 C L 67 17 132/55 L 94 02/26/21 04:07 36.9 C 79 22 130/60 94 Laboratory Results Abnormal lab results 02/25/21 02/25/21 02/26/21 Range/Units 17:02 20:11 06:42 APTT 60.5 H* (21.0-31.0) Seconds Chloride (98-107) mmol/L Creatinine (0.6-1.4) mg/dl BUN/Creatinine Ratio (10-20) POC Glucose 112 H 105 H (70-99) mg/dl Calcium (8.5-10.1) mg/dl 02/26/21 02/26/21 Range/Units 06:42 11:49 APTT (21.0-31.0) Seconds Chloride 114 H (98-107) mmol/L Creatinine 2.00 H (0.6-1.4) mg/dl BUN/Creatinine Ratio 8.8 L (10-20) POC Glucose 125 H (70-99) mg/dl Calcium 7.9 L (8.5-10.1) mg/dl (1) Urinary tract infection Hematuria presence: with hematuria Urinary tract infection type: site unspecified Qualified Code(s): N39.0 - Urinary tract infection, site not specified; R31.9 - Hematuria, unspecified
[2021-02-26] MEDS: TAMSULOSIN HCL 0.4 MG CAP PO SCH (14:51)
[2021-02-26] MEDS: ATORVASTATIN 10 MG TAB PO SCH (21:18)
[2021-02-26] MEDS: HEPARIN SODIUM/DEXTROSE 25,000 UNITS/500 ML BAG IV SCH (21:58)
[2021-02-26] MEDS: LOPERAMIDE HCL 2 MG CAP PO PRN (21:58)
[2021-02-27] MEDS: PANTOprazole 40 MG TAB PO SCH (06:14)
[2021-02-27 06:28] LABS: Hematocrit (blood only) 29.1 % (42-52); Hemoglobin 9.5 g/dL (14.0-18.0); Mean Corpuscular Hgb Conc 32.6 g/dL (32-36); Mean Corpuscular Volume 91.8 fL (80-100); Mean Platelet Volume 11.2 fL (7.4-10.4); Platelet Count 273 K/uL (130-400); RDW Coefficient of Variation 16.1 % (11.5-14.5); RDW Standard Deviation 53.8 fL (36.4-46.3); Red Blood Count 3.17 M/uL (4.7-6.1); White Blood Count 6.29 K/uL (4.8-10.8)
[2021-02-27] MEDS: LOPERAMIDE HCL 2 MG CAP PO PRN (06:43)
[2021-02-27 06:53] LABS: BUN Creatinine Ratio 7.3 (10-20); Calcium 7.9 mg/dl (8.5-10.1); Est GFR (African American) 36.6 ml/min; Est GFR (Non-African American) 31.5 ml/min; Potassium 4.7 mmol/L (3.5-5.1)
[2021-02-27 07:08] LABS: Partial Thromboplastin Ratio 2.6
[2021-02-27] MEDS: azaTHIOprine 25 MG TAB PO SCH (08:48)
[2021-02-27] MEDS: POTASSIUM CHLORIDE CRTAB 20 MEQ TABCR PO SCH (08:48)
[2021-02-27] MEDS: PYRIDOSTIGMINE BROMIDE 60 MG TAB PO SCH ×2 (08:48→15:00)
[2021-02-27] MEDS: METOPROLOL TARTRATE 25 MG TAB PO SCH (08:49)
[2021-02-27] MEDS: SODIUM BICARBONATE 650 MG TAB PO SCH (08:50)
[2021-02-27] MEDS: INSULIN ASPART 100 UNITS/ML 3 ML PEN SC SCH ×2 (09:09→12:21)
--- NOTE | 2021-02-27 11:15 | Discharge Summary ---
Date of Service February 27, 2021 Admission HPI Per Admitting Provider Patient seen by Dr. Curry, please refer to her additional documentation. 80 year old male with PMH MG, DM type II, s/p AAA repair, recent COVID 19 infection, pulmonary embolism anticoagulated on Eliquis, p. afib, and other problems listed below who was sent to the ED from [facility] for evaluation of worsening renal failure. Recently admitted to [facility] 01/20-01/23 for COVID pneumonia and acute PE. Patient was treated with dexamethasone and remdesivir. Was started on Eliquis for PE. Hypoxia resolved by the time of discharge. Patient presented back to [facility] 01/26 and was found to be in afib RVR. Rates improved with IV metoprolol. He also required 2L O2. He was redosed with dexamethasone and remdesvir. Patient again discharged home. Patient then admitted to [facility] 02/08-02/12 for UTI. Urine culture from 02/09 grew enterococcus and 1 out of 2 blood cultures from 02/08 grew enteroccoccus as well. Repeat cultures from 02/12 show no growth to date. (culture information obtained via phone from micro lab). Patient was discharged on IV ampicillin for 4 days and was to transition to Augmentin today for 1 week. Patient was discharged to [facility] for rehab needs. Has been noted to have worsening renal failure (creat 1.0 on 02/12 -> 2.7 -> 6.3 -> 7.6). In the ED, patient is hemodynamically stable. Labs show hgb 8.4, creat 7.7, K+ 3.1. Chambers was placed with little urine return. UA appears infected. Patient was given Mg+ replacement, IV Zosyn, IVF. Admission Exam Per Admitting Provider CONSTITUTIONAL: WNWD, vitals as above, generally ill-appearing, NAD EYES: normal conjunctivae, no scleral icterus ENT: external ear and nose normal, MMM NECK: trachea midline RESPIRATORY: clear to auscultation bilaterally, no crackles, rales or wheezes, normal respiratory effort CARDIOVASCULAR: regular rate and rhythm, S1 and 2 heard without murmurs, gallops or rubs, no JVD, no peripheral edema GASTROINTESTINAL: soft, nontender, ND, no guarding MUSCULOSKELETAL: generalized weakness, head is normocephalic and atraumatic SKIN: warm and dry NEUROLOGIC: No facial palsy, no dysarthria. CN 2-12 grossly intact, normal cognition, normal speech, no tremor. No gross focal deficits. PSYCHIATRIC: alert cooperative and oriented to person, place and time. Euthymic mood, makes good eye contact, language grossly intact, recent and remote memory grossly intact. Principal Diagnosis Acute renal failure due to acute tubular necrosis Discharge Exam Constitutional + well hydrated; no acute distress Eyes PERRL, conjunctivae normal, anicteric sclerae ENMT external ear and nose normal, oropharynx normal Respiratory normal respiratory effort, lungs clear to auscultation Cardiovascular RRR S1 S2 Gastrointestinal (Abdomen) normal bowel sounds, soft, nontender, no hepatosplenomegaly Musculoskeletal +pedal edema Neurologic PERRL, EOMI, accommodation nl, no face palsy, no dysarthria Psychiatric A+Ox3, euthymic affect Discharge Data Allergies Allergy/AdvReac Type Severity Reaction Status Date / Time onion Allergy Unknown Unverified 02/16/21 15:04 pork derived (porcine) Allergy Unknown Unverified 02/16/21 15:04 lactose AdvReac Unknown Nausea Verified 02/23/21 11:01 Consultations 02/16/21 13:56 ED Decision to Admit Stat 02/16/21 19:27 Consult Neurology Routine 02/17/21 05:56 Consult Nephrology Routine 02/24/21 16:37 Consult Health Information Management Routine Ordered Studies 02/17/21 11:30 US renal/blad retro comp Urgent The right kidney measures 11.2 cm in length, and the left kidney measures 12.2 cm in length. The right kidney is normal in size, contour, cortical thickness, and echogenicity. No hydronephrosis is identified. No perinephric fluid collection is seen. The left kidney is normal in size, contour, cortical thickness and echogenicity. No hydronephrosis is identified. No perinephric fluid collection is seen. The bladder is collapsed with a Chambers catheter in place. No large intraluminal mass is seen. IMPRESSION: Unremarkable renal ultrasound. In particular, no evidence of hydronephrosis Hospital Course (1) Acute renal failure due to tubular necrosis: Etiology likely ATN which could be multifactorial Creatinine on admission 7.7 Renal ultrasound unremarkable renal ultrasound without evidence of hydronephrosis. Creatinine level beginning January was 1.1 at [facility] Was managed with the Order Tracer Avoid any nephrotoxic agent such as JULIOCESAR inhibitor, NSAIDs Creatinine continue trending down to 1.9 today Discussed with filter press tender and pharmacist Would continue to hold SGLT2i until renal function stabilizes Recommend bmp q mon, Thurs until renal function stabilizes after hospital d/c. Patient to follow up results with Order Tracer Needs follow up appt with Nephro Dr Vinicius MORALES after rehab discharge within 2 weeks (2) Anemia: likely multifactorial including kidney disease, inflammation from multiple chronic medical problems and persistent daily phlebotomy for the past month. No signs of bleeding Hemoglobin stable Hb is 9.5 today (3) History of COVID-19: Recent admissions to [facility] twice in Jan per HPI and recently treated for COVID-19 about 2 to 3 weeks ago Currently saturating well on room air (4) Urinary tract infection: Recent urine culture in [facility] grew Enterococcus faecalis again on 02/08 blood culture grew Enterococcus faecalis Hospitalist provider at [facility] discussed with ID.recommended ampicillin x4 days then once completed to do Augmentin for an additional 7 more days Blood culture on admission showed no growth Received IV Zosyn x4 days while inpatient and discontinued (5) History of pulmonary embolism: Recent PE diagnosis one month ago, possibly provoked from covid illness, Due to recent decrease in renal function with creatinine above 7, eliquis was held and transitioned to IV heparin during the hospital course With improvement of renal function and CrCl, eliquis resumed on discharged (6) DM type 2 (diabetes mellitus, type 2): Hgb a1c 6.7 12/2020 (7) Diarrhea: Stool sent for C. difficile negative Patient said diarrhea is chronic and usually takes Lomotil Continue monitor electrolytes Continue Lomotil prn (8) Paroxysmal A-fib: Rate controlled on metoprolol On eliquis (9) Myasthenia gravis: Continue azathioprine and pyridostigmine renally dosed for now as stated above There is no evidence of myasthenia crisis Total Time Total Time Spent Total Time Spent (In Minutes): 50 Total Time Includes: Examination of the Patient, Discharge Planning, Medication Reconciliation and Communication With Other Providers Discharge Plan Discharge Items Patient Disposition: Transfer Inpatient Rehab Fac Reason For Visit: Acute Renal failure Discharge Diagnosis: Acute kidney injury due to Acute tubular necrosis Activity: As commented below Activity Comment: Per Physical therapist Non-emergency contact: Primary Care Provider and Order Tracer Call non-emergency contact if: you have any medication questions Follow-up/Referrals: Janak Garcia MD [Surgeon] - (Date & Time 03/05/2021 11:40 AM Provider Janak Garcia MD Department Nephrology, [facility] ) Huy Rainey MD [Primary Care Provider] - Diet: Heart Healthy Addtl Attending Provider Instructions: Mr Wild. You were brought to the hospital due to worsening renal function You were evaluated and managed for this. Your kidney function is currently improving Stop Jardiance for now until follow up with the Order Tracer (Kidney Doctor) in the office. Avoid nephrotoxic medications for now. Keep legs elevated when possible. Please ensure follow up with Nephrology office in 2-3 weeks. Please ensure you do the lab test called Basic Metabolic Panel twice a week (Wednesday and ) and follow up the results with the Order Tracer. It was a pleasure taking care of you. Pending Studies at Discharge: No Stand-Alone Forms: My [facility] Skilled Items Patient informed of condition?: Yes DNR: No Discharge Level of Care: Acute rehab Communicable Disease: No Discharge Prognosis: Improving Lines: None Urinary Catheter: No Medications and DC Order Prescriptions: Continued acetaminophen [Tylenol] 325 mg Tablet 650 mg PO Q4H PRN (Reason: Pain) RF: 0 citalopram [Celexa] 40 mg tablet 40 mg PO DAILY RF: 0 atorvastatin [Lipitor] 10 mg tablet 10 mg PO HS RF: 0 ondansetron HCl [Zofran] 4 mg tablet 4 mg PO Q8H PRN (Reason: Nausea) RF: 0 ascorbic acid (vitamin C) 1,000 mg Tablet Extended Release 1,000 mg PO DAILY RF: 0 diphenoxylate-atropine [Lomotil] 2.5-0.025 mg tablet 1 tab PO QID PRN (Reason: Diarrhea) RF: 0 azathioprine [Imuran] 50 mg tablet 150 mg PO DAILY RF: 0 tamsulosin [Flomax] 0.4 mg capsule 0.4 mg PO QDD RF: 0 benzonatate [Tessalon Perles] 100 mg capsule 100 mg PO TID PRN (Reason: Cough) RF: 0 pantoprazole [Protonix] 40 mg tablet,delayed release (DR/EC) 40 mg PO DAILYBB RF: 0 pyridostigmine bromide [Mestinon] 60 mg tablet See Rx Instructions .ROUTE .COMPLEX RF: 0 docusate sodium 100 mg Capsule 100 mg PO BID RF: 0 metoprolol tartrate 25 mg tablet 25 mg PO Q12H RF: 0 calcium carbonate-vitamin D3 [Calcium 500 + D] 500 mg(1,250mg) -200 unit Ta blet 1 tab PO DAILY RF: 0 zinc sulfate [Zinc-220] 50 mg zinc (220 mg) capsule 50 mg PO DAILY RF: 0 Eliquis 5 mg tablet 2.5 mg PO Q12 RF: 0 Discontinued amoxicillin-pot clavulanate [Augmentin] 875-125 mg tablet 1 tab PO Q12H RF: 0 ampicillin sodium 2 gram Piggyback 2 g IV Q6H RF: 0 Jardiance 10 mg tablet 10 mg PO DAILY RF: 0 Discharge Orders: Discharge Order (Routine); Ordered 02/27/21 Ordered By: Rosaura Ponce Admission Data Admit Date/Time: 02/16/21 15:16 Attending Provider: Rosaura Ponce I. Admit Provider: Zuri Curry Primary Care Provider: Huy Rainey Other Providers: Zuri Curry ; Makeda Colvin ; [facility] Other Interventions: Discharge Summary Assessment (RN) Last Done: 02/27/21 16:15
--- NOTE | 2021-03-06 07:48 | Coding Query ---
CODING QUERY To promote full compliance with coding requirements relating to patient care, provider participation is requested in all cases of summer associate uncertainty. Please assist us with the question(s) below: Coding Question(s): Patient admitted with ATN. Treated for Covid 19 2-3 weeks ago, testing positive for Covid 19 on admission. Previously treated with Remdesivir . Saturating well this admission on room air. *Seeking to clarify if Covid still active with positive test result on admission. Please check below the phrase that describes the Covid test results on admission. Thanks for your help! Aldair Samuel [facility] Physician's Response(s): Patient has a history of Covid -19 Patient remains active Covid-19 Cannot clinically correlate if patient has resolved/history of OR active Covid ___x Other: please document: ____Patient tested positive for COVID 19 on admission does not mean active infection as patient was just treated for COVID within thhe past month. Principal Diagnosis: "that condition established after study, to be chiefly responsible for occasioning the admission of the patient to the hospital for care." Co-Existing Principal Diagnosis: "when two or more diagnoses equally meet the criteria for principal diagnosis as determined by the circumstances of admission, diagnostic work up, and/or therapy provided, and the Alphabetic Index, Tabular List, or another coding guideline does not provide sequencing direction, any one of the diagnoses may be sequenced first." "When the physician has documented what appears to be a current diagnosis in the body of the record, but has not included the diagnosis in the final diagnostic statement, the physician should be asked whether the diagnosis should be added." (Source Coding Clinic 2 QTR90. p3-4) CARISSA
== END 2021-02-27 17:32 | DRG 683 ==
LOC: ED 12:10 → 2E 15:16 → SUATTDRO 15:16 → 2E 18:07

== ENCOUNTER 2021-03-16 10:36 | Inpatient (IN) ==
--- NOTE | 2021-03-16 11:04 | Emergency Department Note ---
Impression & Plan Symptomatic anemia, Weakness, Leukopenia ED Provider Note NAME: SCOT STANTON AGE: 80 SEX: M : 1940 ARRIVES VIA: Ambulance INFORMANT: Patient ED PROVIDER(S): Fidel Orellana DO CHIEF COMPLAINT: Weakness and low hemoglobin HPI: Patient is an 80-year-old gentleman with a recent history of Covid and hospital admissions who has been placed in a rehab facility secondary to weakness from these admissions. He had blood work checked today and his hemoglobin was low and has continued to trend down per rehab. He denies any headache or change in vision. He admits to dizziness with getting up and moving around which has been present for weeks since the Covid diagnosis. He denies any nausea but has intermittent vomiting when he swallows all his pills in the morning. He admits to diarrhea which has been present for the past 2 months. He goes about 1-2 times a day. No dysuria, urgency, or frequency. He notes he is not very hungry. ROS: See above HPI for pertinent positives & negatives. A total of 10 systems reviewed and were otherwise negative. PAST MEDICAL HISTORY:See Below PAST SURGICAL HISTORY:See Below FAMILY HISTORY:See Below SOCIAL HISTORY:See Below HOME MEDICATIONS:See Below ALLERGIES:See Below VITALS:See Below PHYSICAL EXAMINATION: GENERAL: Sitting up in bed, alert, chronically ill-appearing, disheveled EYE EXAM: normal conjunctiva. OROPHARYNX: no exudate, no erythema, lips, buccal mucosa, and tongue normal and mucous membranes are moist NECK: supple, no nuchal rigidity, no adenopathy, non-tender LUNGS: Clear to auscultation. Normal chest wall mechanics HEART: no murmurs, S1 normal and S2 normal ABDOMEN: abdomen soft, non-tender, normo-active bowel sounds, no masses, no rebound or guarding. RECTAL: Hem neg UPPER EXTREMITIES: upper extremities are grossly normal. LOWER EXTREMITIES: No pitting edema. NEURO EXAM: Normal sensorium, cranial nerves II-XII grossly intact, normal speech, no gross weakness of arms, no gross weakness of legs. MEDICAL DECISION MAKING: Patient is an 80-year-old male who presents the ER for weakness, intermittent dizziness, persistent diarrhea and hemoglobin which has been trending down per rehab. IV was established blood work was obtained. Labs show leukopenia at 4000. Hemoglobin at 7 down from baseline of what appears to be 10. INR was at 1.3. He does take Eliquis. BMP with LFTs bilirubin was unremarkable. Patient was typed and crossed. CT abdomen pelvis showed no acute pathology. He was updated bedside. Discussed with the hospitalist admitted for further work-up with a drop of hemoglobin of 10 to 7 while on Eliquis. Patient was updated be dside. Discussed with hospitalist for further evaluation. Triage Nursing notes reviewed. Limited review of prior medical records performed Vital Signs: reviewed and remarkable for no significant abnormalities Differential diagnosis: Differential diagnoses includes but is not limited to gastritis, peptic ulcer disease, GERD, gallbladder disease, pancreatitis, small bowel obstruction, acute coronary syndrome, pericarditis, ischemic bowel, irritable bowel disease, irritable bowel syndrome, appendicitis, diverticulitis, malignancy, hernia, urin ladarius tract infection, torsion, perforation, trauma, infectious. ER treatment provided: See below Diagnostics interpreted by me: ECG: A. fib rate of 103 Left axis Right bundle branch block T wave inversion in septal leads QTC 529 Cardiac Monitoring: An order was placed for continuous cardiac monitoring. The monitor shows a rate of 103 with sinus rhythm. Laboratory studies: As stated above and show below. Imaging studies: CT abdomen pelvis showed no acute pathology Consultation(s): Discussed with Tasha from [facility] service Procedures: none Critical Care: None Past Med/Surg History Medical History (Updated 03/16/21 @ 14:17 by Tasha Myles PA-C) COVID-19 virus infection DM type 2 (diabetes mellitus, type 2) Dyslipidemia History of pulmonary embolism Hypertension Myasthenia gravis Osteoarthritis Paroxysmal A-fib Surgical History (Updated 03/16/21 @ 14:14 by Tasha Myles PA-C) History of hernia repair x3 S/P AAA repair Family History Father Cancer Social History Smoking Status: Former smoker Tobacco Type: Cigarettes Cigarettes Per Day: 1 pack; Hx Alcohol Use: No Hx Substance Use: No Preferred Language: Nigerian Communication Ability: Effective 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 Beliefs That Will Affect Care: None Current Living Situation: Rehab Current Living Situation Comment: [facility] Feels Safe at Home: Yes Assistive Devices: None Allergies Allergies Allergy/AdvReac Type Severity Reaction Status Date / Time onion Allergy Unknown Unverified 02/16/21 15:04 pork derived (porcine) Allergy Unknown Unverified 02/16/21 15:04 lactose AdvReac Unknown Nausea Verified 02/23/21 11:01 Home Meds Home Medications Medication Instructions Recorded Confirmed acetaminophen 325 mg tablet 650 mg PO Q4H PRN 02/16/21 03/16/21 (Tylenol) apixaban 5 mg tablet (Eliquis) 5 mg PO Q12 02/16/21 03/16/21 ascorbic acid (vitamin C) 1,000 mg 1,000 mg PO DAILY 02/16/21 03/16/21 tablet,extended release atorvastatin 10 mg tablet (Lipitor) 10 mg PO HS 02/16/21 03/16/21 azathioprine 50 mg tablet (Imuran) 100 mg PO DAILY 02/16/21 03/16/21 benzonatate 100 mg capsule 100 mg PO TID PRN 02/16/21 03/16/21 (Tessalon Perles) calcium carbonate 500 mg (1,250 1 tab PO DAILY 02/16/21 03/16/21 mg)-vitamin D3 200 unit tablet (Calcium 500 + D) citalopram 40 mg tablet (Celexa) 40 mg PO DAILY 02/16/21 03/16/21 diphenoxylate-atropine 2.5 1 tab PO QID PRN 02/16/21 03/16/21 mg-0.025 mg tablet (Lomotil) docusate sodium 100 mg capsule 100 mg PO BID 02/16/21 03/16/21 metoprolol tartrate 25 mg tablet 25 mg PO Q12H 02/16/21 03/16/21 ondansetron HCl 4 mg tablet 4 mg PO Q8H PRN 02/16/21 03/16/21 (Zofran) pantoprazole 40 mg tablet,delayed 40 mg PO DAILYBB 02/16/21 03/16/21 release (Protonix) pyridostigmine bromide 60 mg 60 mg PO BIDM 02/16/21 03/16/21 tablet (Mestinon) tamsulosin 0.4 mg capsule (Flomax) 0.4 mg PO QDD 02/16/21 03/16/21 zinc sulfate 50 mg zinc (220 mg) 50 mg PO DAILY 02/16/21 03/16/21 capsule (Zinc-220) lorazepam 0.5 mg tablet 0.5 mg PO TID PRN 03/16/21 03/16/21 magnesium oxide 400 mg PO BID 03/16/21 03/16/21 potassium chloride 20 mEq 20 meq PO TID 03/16/21 03/16/21 tablet,extended release pyridostigmine bromide 60 mg tablet 90 mg PO HS 03/16/21 03/16/21 Results & Data (ED) Vital Signs Vital Signs - 24 hr 03/16/21 10:44 03/16/21 12:32 03/16/21 13:00 Temperature 36.5 C Temperature Source Oral Pulse Rate 100 H Pulse Rate [Apical] 90 57 L Pulse Rhythm [Apical] Irregular Respiratory Rate 21 19 20 Respiratory Effort / Characteristics Non-Labored Non-Labored Non-Labored Spontaneous Respiratory Depth Normal Blood Pressure 127/62 Blood Pressure [Left Arm] 121/71 123/50 L Blood Pressure Mean 83 Blood Pressure Mean [Left Arm] 87 74 Pulse Oximetry 95 95 95 Oxygen Delivery Method Room Air Room Air Sepsis Recent Fever Within 48 Hours No Sepsis New/Unexplained Change in Mental Status N/A Sepsis Action Taken by Nursing No Action Required 03/16/21 14:27 Temperature Temperature Source Pulse Rate 87 Pulse Rate [Apical] Pulse Rhythm [Apical] Respiratory Rate 18 Respiratory Effort / Characteristics Respiratory Depth Blood Pressure 140/70 Blood Pressure [Left Arm] Blood Pressure Mean Blood Pressure Mean [Left Arm] Pulse Oximetry 95 Oxygen Delivery Method Room Air Sepsis Recent Fever Within 48 Hours Sepsis New/Unexplained Change in Mental Status Sepsis Action Taken by Nursing Laboratory Data Result diagrams: 03/16/21 11:19 03/16/21 11:19 Lab Results 03/16/21 03/16/21 03/16/21 Range/Units 10:44 11:19 11:19 WBC 4.54 L (4.8-10.8) K/uL RBC 2.40 L (4.7-6.1) M/uL Hgb 7.2 L (14.0-18.0) g/dL Hct 22.4 L (42-52) % MCV 93.3 (80-100) fL MCH 30.0 (25-34) pg MCHC 32.1 (32-36) g/dL RDW Std Deviation 55.2 H (36.4-46.3) fL RDW Coeff of Song 16.6 H (11.5-14.5) % Plt Count 248 (130-400) K/uL MPV 10.3 (7.4-10.4) fL Immature Gran % (Auto) 0.4 % Neut % (Auto) 71.2 % Lymph % (Auto) 18.7 % Chilton % (Auto) 1.8 % Eos % (Auto) 7.7 % Baso % (Auto) 0.2 % Reticulocyte % (Auto) 0.8 (0.5-2.0) % Neut # (Auto) 3.23 (1.4-6.5) K/uL Lymph # (Auto) 0.85 L (1.2-3.4) K/uL [place]ilton # (Auto) 0.08 L (0.11-0.59) K/uL Eos # (Auto) 0.35 (0-0.5) K/uL Baso # (Auto) 0.01 (0-0.2) K/uL Reticulocyte # 0.02 (0.02-0.10) 10^6/uL Immature Gran # (Auto) 0.02 (0.00-0.02) K/uL Acanthocytes (Spur) 1+ PT (9.0-12.0) Seconds INR (0.9-1.1) APTT (21.0-31.0) Seconds PTT Ratio Sodium (136-145) mmol/L Potassium (3.5-5.1) mmol/L Chloride (98-107) mmol/L Carbon Dioxide (21-32) mmol/L Anion Gap (3-11) BUN (7-18) mg/dl Creatinine (0.6-1.4) mg/dl Est Cr Clr Drug Dosing ml/min Est GFR ( Amer) ml/min Est GFR (Non-Af Amer) ml/min BUN/Creatinine Ratio (10-20) Glucose (70-99) mg/dl Calcium (8.5-10.1) mg/dl Iron (35-175) mcg/dl TIBC (250-450) mcg/dl Transferrin (200-360) mg/dl Ferritin (8-388) ng/ml Total Bilirubin (0.2-1) mg/dl AST (15-37) U/L ALT (12-78) U/L Alkaline Phosphatase (45-117) U/L Total Protein (6.4-8.2) gm/dl Albumin (3.4-5.0) gm/dl Globulin (2.5-4.0) gm/dl Albumin/Globulin Ratio (0.9-2) POC Stool Occult Blood Negative (Negative) COVID-19 Eval Order SARS-CoV-2 (PCR) (Negative) Blood Type O Positive Antibody Screen NEGATIVE Crossmatch See Detail 03/16/21 03/16/21 03/16/21 Range/Units 11:19 11:19 12:02 WBC (4.8-10.8) K/uL RBC (4.7-6.1) M/uL Hgb (14.0-18.0) g/dL Hct (42-52) % MCV (80-100) fL MCH (25-34) pg MCHC (32-36) g/dL RDW Std Deviation (36.4-46.3) fL RDW Coeff of Song (11.5-14.5) % Plt Count (130-400) K/uL MPV (7.4-10.4) fL Immature Gran % (Auto) % Neut % (Auto) % Lymph % (Auto) % Chilton % (Auto) % Eos % (Auto) % Baso % (Auto) % Reticulocyte % (Auto) (0.5-2.0) % Neut # (Auto) (1.4-6.5) K/uL Lymph # (Auto) (1.2-3.4) K/uL Chilton # (Auto) (0.11-0.59) K/uL Eos # (Auto) (0-0.5) K/uL Baso # (Auto) (0-0.2) K/uL Reticulocyte # (0.02-0.10) 10^6/uL Immature Gran # (Auto) (0.00-0.02) K/uL Acanthocytes (Spur) PT 13.0 H (9.0-12.0) Seconds INR 1.3 H (0.9-1.1) APTT 31.6 H (21.0-31.0) Seconds PTT Ratio 1.2 Sodium 139 (136-145) mmol/L Potassium 3.6 (3.5-5.1) mmol/L Chloride 107 (98-107) mmol/L Carbon Dioxide 27 (21-32) mmol/L Anion Gap 5.0 (3-11) BUN 6 L (7-18) mg/dl Creatinine 1.17 (0.6-1.4) mg/dl Est Cr Clr Drug Dosing 60.8 ml/min Est GFR ( Amer) 67.4 ml/min Est GFR (Non-Af Amer) 58.1 ml/min BUN/Creatinine Ratio 5.3 L (10-20) Glucose 98 (70-99) mg/dl Calcium 7.8 L (8.5-10.1) mg/dl Iron 40 (35-175) mcg/dl TIBC 81 L (250-450) mcg/dl Transferrin 69 L (200-360) mg/dl Ferritin 1309.1 H (8-388) ng/ml Total Bilirubin 0.6 (0.2-1) mg/dl AST 22 (15-37) U/L ALT 10 L (12-78) U/L Alkaline Phosphatase 69 (45-117) U/L Total Protein 5.1 L (6.4-8.2) gm/dl Albumin 1.5 L (3.4-5.0) gm/dl Globulin 3.6 (2.5-4.0) gm/dl Albumin/Globulin Ratio 0.4 L (0.9-2) POC Stool Occult Blood (Negative) COVID-19 Eval Order Covid19 at [facility] SARS-CoV-2 (PCR) (Negative) Blood Type Antibody Screen Crossmatch 03/16/21 Range/Units 12:02 WBC (4.8-10.8) K/uL RBC (4.7-6.1) M/uL Hgb (14.0-18.0) g/dL Hct (42-52) % MCV (80-100) fL MCH (25-34) pg MCHC (32-36) g/dL RDW Std Deviation (36.4-46.3) fL RDW Coeff of Song (11.5-14.5) % Plt Count (130-400) K/uL MPV (7.4-10.4) fL Immature Gran % (Auto) % Neut % (Auto) % Lymph % (Auto) % Chilton % (Auto) % Eos % (Auto) % Baso % (Auto) % Reticulocyte % (Auto) (0.5-2.0) % Neut # (Auto) (1.4-6.5) K/uL Lymph # (Auto) (1.2-3.4) K/uL Chilton # (Auto) (0.11-0.59) K/uL Eos # (Auto) (0-0.5) K/uL Baso # (Auto) (0-0.2) K/uL Reticulocyte # (0.02-0.10) 10^6/uL Immature Gran # (Auto) (0.00-0.02) K/uL Acanthocytes (Spur) PT (9.0-12.0) Seconds INR (0.9-1.1) APTT (21.0-31.0) Seconds PTT Ratio Sodium (136-145) mmol/L Potassium (3.5-5.1) mmol/L Chloride (98-107) mmol/L Carbon Dioxide (21-32) mmol/L Anion Gap (3-11) BUN (7-18) mg/dl Creatinine (0.6-1.4) mg/dl Est Cr Clr Drug Dosing ml/min Est GFR ( Amer) ml/min Est GFR (Non-Af Amer) ml/min BUN/Creatinine Ratio (10-20) Glucose (70-99) mg/dl Calcium (8.5-10.1) mg/dl Iron (35-175) mcg/dl TIBC (250-450) mcg/dl Transferrin (200-360) mg/dl Ferritin (8-388) ng/ml Total Bilirubin (0.2-1) mg/dl AST (15-37) U/L ALT (12-78) U/L Alkaline Phosphatase (45-117) U/L Total Protein (6.4-8.2) gm/dl Albumin (3.4-5.0) gm/dl Globulin (2.5-4.0) gm/dl Albumin/Globulin Ratio (0.9-2) POC Stool Occult Blood (Negative) COVID-19 Eval Order SARS-CoV-2 (PCR) NEGATIVE (Negative) Blood Type Antibody Screen Crossmatch Administered Medications Discontinued Medications Ioversol (Optiray 320 100ml) 90 ml IV ONCE ONE Stop: 03/16/21 12:22 Last Admin: 03/16/21 12:22 Dose: 90 ml Documented by: [id number] Imaging Data Radiologist's Impression: Abdomen/Pelvis CT 03/16/21 11:38 CT abd pelvis IV con only CLINICAL HISTORY: abd pain TECHNIQUE: Helical axial images of the abdomen and pelvis were obtained and displayed. Automated dose lowering techniques and/or adjustment according to patient size were utilized for this exam. This exam was performed with intravenous contrast. COMPARISON: None available at the time of this dictation. FINDINGS: Lower chest: Trace bilateral pleural effusions. There are reticular opacities in the bilateral lung bases which may represent chronic scarring changes Liver: Unremarkable. No focal lesions are seen. Gallbladder and biliary tree: Layering radiodense material is seen in the dependent portion of the gallbladder which may represent sludge versus stones. No intra- or extrahepatic biliary ductal dilation. Pancreas: Unremarkable, no focal lesions. Spleen: Unremarkable. Adrenals: Unremarkable. Kidneys and ureters: Unremarkable. Bladder: Unremarkable. Reproductive organs: Prostatic calcifications are seen which may represent prior hemorrhage or granulomatous disease. Bowel: Diverticulosis is seen without evidence of diverticulitis. The appendix is normal. A small hiatal hernia is seen. A duodenal diverticulum is seen. Lymph nodes Retroperitoneal: Unremarkable. Mesenteric: Unremarkable. Pelvic: Unremarkable. Peritoneum: Normal Vessels: Atherosclerotic calcifications are seen. Abdominal wall: Mild soft tissue stranding is seen in the left greater than right posterior lateral soft tissues. Bones: Degenerative changes in the visualized spine. IMPRESSION: No acute intra-abdominal abnormalities. Soft tissue stranding is seen in the bilateral posterolateral soft tissues, correlation with physical exam is recommended. ACT 112: Negative or not required by law. Electronically signed by: Jeff Manzo M.D. 03/16/2021 12:43 PM Discharge Plan Visit Data Chief Complaint: Abnormal Labs/Diagnostic Testing Stated Complaint: ABNORMAL LABS ED Provider: Fidel Orellana Discharge Problem: Symptomatic anemia, Weakness, Leukopenia Discharge Instructions Interventions: ED Discharge Assessment Last Done: 03/16/21 14:27 Forms Stand Alone Forms: My [facility] [employer] Prescriptions Prescriptions: No Action acetaminophen [Tylenol] 325 mg Tablet 650 mg PO Q4H PRN (Reason: Pain) RF: 0 citalopram [Celexa] 40 mg tablet 40 mg PO DAILY RF: 0 atorvastatin [Lipitor] 10 mg tablet 10 mg PO HS RF: 0 ondansetron HCl [Zofran] 4 mg tablet 4 mg PO Q8H PRN (Reason: Nausea) RF: 0 ascorbic acid (vitamin C) 1,000 mg Tablet Extended Release 1,000 mg PO DAILY RF: 0 diphenoxylate-atropine [Lomotil] 2.5-0.025 mg tablet 1 tab PO QID PRN (Reason: Diarrhea) RF: 0 azathioprine [Imuran] 50 mg tablet 100 mg PO DAILY RF: 0 tamsulosin [Flomax] 0.4 mg capsule 0.4 mg PO QDD RF: 0 benzonatate [Tessalon Perles] 100 mg capsule 100 mg PO TID PRN (Reason: Cough) RF: 0 pantoprazole [Protonix] 40 mg tablet,delayed release (DR/EC) 40 mg PO DAILYBB RF: 0 pyridostigmine bromide [Mestinon] 60 mg tablet 60 mg PO BIDM RF: 0 docusate sodium 100 mg Capsule 100 mg PO BID RF: 0 metoprolol tartrate 25 mg tablet 25 mg PO Q12H RF: 0 calcium carbonate-vitamin D3 [Calcium 500 + D] 500 mg(1,250mg) -200 unit Tablet 1 tab PO DAILY RF: 0 zinc sulfate [Zinc-220] 50 mg zinc (220 mg) capsule 50 mg PO DAILY RF: 0 Eliquis 5 mg tablet 5 mg PO Q12 RF: 0 lorazepam 0.5 mg Tablet 0.5 mg PO TID PRN (Reason: Anxiety) RF: 0 pyridostigmine bromide 60 mg tablet 90 mg PO HS RF: 0 potassium chloride 20 mEq Tablet Extended Release 20 meq PO TID RF: 0 magnesium oxide 400 mg magnesium Tablet 400 mg PO BID RF: 0 Referrals Referrals: Huy Rainey MD [Outside Practitioners] -
[2021-03-16 11:29] LABS: Basophils # (auto) 0.01 K/uL (0-0.2); Basophils % (auto) 0.2 %; Eosinophils # (auto) 0.35 K/uL (0-0.5); Eosinophils % (auto) 7.7 %; Hematocrit (blood only) 22.4 % (42-52); Hemoglobin 7.2 g/dL (14.0-18.0); Immature Granulocytes # (auto) 0.02 K/uL (0.00-0.02); Immature Granulocytes % (auto) 0.4 %; Lymphocytes # (auto) 0.85 K/uL (1.2-3.4); Lymphocytes % (auto) 18.7 %; Mean Corpuscular Hgb Conc 32.1 g/dL (32-36); Mean Corpuscular Volume 93.3 fL (80-100); Mean Platelet Volume 10.3 fL (7.4-10.4); Monocytes # (auto) 0.08 K/uL (0.11-0.59); Monocytes % (auto) 1.8 %; Neutrophils # (auto) 3.23 K/uL (1.4-6.5); Neutrophils % (auto) 71.2 %; Platelet Count 248 K/uL (130-400); RDW Coefficient of Variation 16.6 % (11.5-14.5); RDW Standard Deviation 55.2 fL (36.4-46.3); White Blood Count 4.54 K/uL (4.8-10.8)
[2021-03-16 11:41] LABS: INR 1.3 (0.9-1.1); Partial Thromboplastin Ratio 1.2; Partial Thromboplastin Time 31.6 Seconds (21.0-31.0)
[2021-03-16 11:46] LABS: Albumin Level 1.5 gm/dl (3.4-5.0); BUN Creatinine Ratio 5.3 (10-20); Calcium 7.8 mg/dl (8.5-10.1); Creatinine Clr Calc Pharmacy 60.8 ml/min; Est GFR (African American) 67.4 ml/min; Est GFR (Non-African American) 58.1 ml/min; Potassium 3.6 mmol/L (3.5-5.1)
[2021-03-16 11:49] LABS: Albumin Globulin Ratio 0.4 (0.9-2); Bilirubin,Total 0.6 mg/dl (0.2-1); Globulin 3.6 gm/dl (2.5-4.0); Total Protein 5.1 gm/dl (6.4-8.2)
[2021-03-16 11:53] LABS: Acanthocytes 1+
[2021-03-16] MEDS ORDERED: OPTIRAY 320 100ml IV ONE (12:21)
--- NOTE | 2021-03-16 12:44 | CT Scan Report ---
CT abd pelvis IV con only CLINICAL HISTORY: abd pain TECHNIQUE: Helical axial images of the abdomen and pelvis were obtained and displayed. Automated dose lowering techniques and/or adjustment according to patient size were utilized for this exam. This e xam was performed with intravenous contrast. COMPARISON: None available at the time of this dictation. FINDINGS: Lower chest: Trace bilateral pleural effusions. There are reticular opacities in the bilateral lung bases which may represent chronic scarring changes Liver: Unremarkable. No focal lesions are seen. Gallbladder and biliary tree: Layering radiodense material is seen in the dependent portion of the ga llbladder which may represent sludge versus stones. No intra- or extrahepatic biliary ductal dilation . Pancreas: Unremarkable, no focal lesions. Spleen: Unremarkable. Adrenals: Unremarkable. Kidneys and ureters: Unremarkable. Bladder: Unremarkable. Reproductive organs: Prostatic calcifications are seen which may represent prior hemorrhage or granul omatous disease. Bowel: Diverticulosis is seen without evidence of diverticulitis. The appendix is normal. A small hia maritza hernia is seen. A duodenal diverticulum is seen. Lymph nodes Retroperitoneal: Unremarkable. Mesenteric: Unremarkable. Pelvic: Unremarkable. Peritoneum: Normal Vessels: Atherosclerotic calcifications are seen. Abdominal wall: Mild soft tissue stranding is seen in the left greater than right posterior lateral s oft tissues. Bones: Degenerative changes in the visualized spine. IMPRESSION: No acute intra-abdominal abnormalities. Soft tissue stranding is seen in the bilateral posterolateral soft tissues, correlation with physical exam is recommended. ACT 112: Negative or not required by law. Electronically signed by: Jeff Manzo M.D. 03/16/2021 12:43 PM
[2021-03-16] MEDS ORDERED: SODIUM CHLORIDE 0.9% 250 ML IV PRN ×2 (13:11→14:50)
[2021-03-16 13:27] LABS: Reticulocyte % 0.8 % (0.5-2.0); Reticulocytes # 0.02 10^6/uL (0.02-0.10)
[2021-03-16 14:01] LABS: Ferritin 1309.1 ng/ml (8-388)
--- NOTE | 2021-03-16 14:09 | History & Physical Report ---
Date of Service March 16, 2021 Assessment & Plan (1) Anemia: Plan: This is an 80-year-old male who has significant past medical history of myasthenia gravis, T2DM, history of Covid hospitalization complicated by pneumonia, pulmonary embolism and paroxysmal atrial fib, anemia, critical illness myopathy who presents to ED at the referral of [facility] rehabilitation due to anemia. Anemia - likely multifactorial in setting of recent prolonged acute illness and hospitalization Hgb at D/C was 9.5 Chart review in [facility] reveals gradual downtrend of hgb since admission to [facility] on 02/28 til now from 9.5 - 6.4 in setting of daily phlebotomy no s/sx of bleeding, FOBT negative, denies hx of recent bleeding He is currently on eliquis Iron 40, TIBC 81, Transferrin 69, Ferritin 1309 (may be falsely elevated in setting of recent covid illness) admit to [facility] tele will transfuse 1 unit PRBC, monitor hgb recommend avoiding daily phlebotomy full anemia work up pending ldh, b12, folic acid, peripheral smear, retic count hemocult stools matt test (2) Paroxysmal A-fib: Plan: hx of PAF during recent covid19 hospitalization treated with metoprolol, on eliquis as well for PE [id number] 3 recent hospitalization pt was in sinus juan alberto, pt denies prior hx of PAF except recently obtain echocardiogram consult cardiology and monitor on tele ? if pt not tolerating rhythm which is inhibiting his progress in rehab with fatigue and dizziness (3) Lower extremity edema: Plan: b/l lower ext edema, pt reports chronic but worse since recent hospitalization currently full anticoagulated with eliquis, no erythema or s/sx of dvt Likely multifactorial with low albumin, dependency also possible component of cardiac etiology in setting of afib elevate lower extremities (4) History of COVID-19: Plan: 01/2021 s/p remdesivir and dexamethasone (5) History of pulmonary embolism: Plan: possibly in setting of COVID-19 continue eliquis on room air (6) Myasthenia gravis: Plan: continue Pyridostigmine and azathioprine (7) DM type 2 (diabetes mellitus, type 2): Plan: last a1c 6.7 12/2020 obtain a1c in a.m. 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 Curry, please see addendum History of Present Illness Chief Complaint: Referred to ED secondary to low hemoglobin. Primary Care Provider: Sadnra [facility] This is an 80-year-old male who has significant past medical history of myasthenia gravis, T2DM, history of Covid hospitalization complicated by pneumonia, pulmonary embolism and paroxysmal atrial fib, anemia, critical illness myopathy who presents to ED at the referral of [facility] due to anemia. Of significance patient has had multiple hospitalizations initially starting January 20 secondary to Covid pneumonia and pulmonary embolism at [facility]. He was treated with IV dexamethasone, remdesivir, started on Eliquis and his hypoxia resolved. He was rehospitalized at [facility] on 01/26 secondary to A. fib with RVR requiring IV metoprolol. He was already anticoagulated on Eliquis. He also had hypoxia which resolved. During hospitalization he was re treated with dexamethasone and remdesivir. He was rehospitalized on 02/08-02/12 at [facility] secondary to UTI which urine culture grew Enterococcus. 1 of 2 blood cultures also grew Enterococcus. He was treated with IV ampicillin and transition to Augmentin. Repeat blood cultures on 02/12 revealed no growth to date. He was transferred to [facility] due to deconditioning. Unfortunately he was hospitalized at our facility in [place] on 02/16-02/27 secondary to acute kidney injury with an initial creatinine of 7.7. He was seen and evaluated by nephrology who felt was secondary to acute tubular necrosis. His renal ultrasound was negative. During hospitalization he did have anemia as well with a hemoglobin on day of discharge at 9.5. It was felt to be secondary to chronic illness as well as phlebotomy. He has been at acute rehabilitation at [facility] where he has been participating in therapy. Overall he feels it has not been going very well due to lack of energy and lack of appetite. He has had very poor p.o. intake over the past 2 months, but states he is drinking liquid. He does complain of being lightheaded and dizzy upon standing with therapy. He feels this is been going on since developing Covid. He denies any fever, chills, sweats, chest pain, shortness of breath, palpitations, nausea, vomiting, abdominal pain, melena, hematochezia, hematuria, hemoptysis, epistaxis. He does complain of having diarrhea approximately 3 loose bowel movements daily. This is been ongoing since [facility]. He denies any abdominal pain with the diarrhea. He has been having frequent blood draws in [facility], approximately daily to monitor hemoglobin. His hemoglobin on admission on 02/28 was 9.3. It has slowly trended down to 6.4 this morning which is why he was referred to ED. In ED patient has remained hemodynamically stable. Per auscultation and monitor he is in atrial fibrillation, rate controlled. His hemoglobin is 7.2 with normal indices. Allergies Allergy/AdvReac Type Severity Reaction Status Date / Time onion Allergy Unknown Unverified 02/16/21 15:04 pork derived (porcine) Allergy Unknown Unverified 02/16/21 15:04 lactose AdvReac Unknown Nausea Verified 02/23/21 11:01 Home Medications Medication Instructions Recorded Confirmed Type acetaminophen 325 mg tablet 650 mg PO Q4H PRN 02/16/21 03/16/21 History (Tylenol) apixaban 5 mg tablet (Eliquis) 5 mg PO Q12 02/16/21 03/16/21 History ascorbic acid (vitamin C) 1,000 mg 1,000 mg PO DAILY 02/16/21 03/16/21 History tablet,extended release atorvastatin 10 mg tablet (Lipitor) 10 mg PO HS 02/16/21 03/16/21 History azathioprine 50 mg tablet (Imuran) 100 mg PO DAILY 02/16/21 03/16/21 History benzonatate 100 mg capsule 100 mg PO TID PRN 02/16/21 03/16/21 History (Bryce Chow) calcium carbonate 500 mg (1,250 1 tab PO DAILY 02/16/21 03/16/21 History mg)-vitamin D3 200 unit tablet (Calcium 500 + D) citalopram 40 mg tablet (Celexa) 40 mg PO DAILY 02/16/21 03/16/21 History diphenoxylate-atropine 2.5 1 tab PO QID PRN 02/16/21 03/16/21 History mg-0.025 mg tablet (Lomotil) docusate sodium 100 mg capsule 100 mg PO BID 02/16/21 03/16/21 History metoprolol tartrate 25 mg tablet 25 mg PO Q12H 02/16/21 03/16/21 History ondansetron HCl 4 mg tablet 4 mg PO Q8H PRN 02/16/21 03/16/21 History (Zofran) pantoprazole 40 mg tablet,delayed 40 mg PO DAILYBB 02/16/21 03/16/21 History release (Protonix) pyridostigmine bromide 60 mg 60 mg PO BIDM 02/16/21 03/16/21 History tablet (Mestinon) tamsulosin 0.4 mg capsule (Flomax) 0.4 mg PO QDD 02/16/21 03/16/21 History zinc sulfate 50 mg zinc (220 mg) 50 mg PO DAILY 02/16/21 03/16/21 History capsule (Zinc-220) lorazepam 0.5 mg tablet 0.5 mg PO TID PRN 03/16/21 03/16/21 History magnesium oxide 400 mg PO BID 03/16/21 03/16/21 History potassium chloride 20 mEq 20 meq PO TID 03/16/21 03/16/21 History tablet,extended release pyridostigmine bromide 60 mg tablet 90 mg PO HS 03/16/21 03/16/21 History Past Med/Surg History Medical History (Updated 03/16/21 @ 14:56 by Tasha Myles PA-C) COVID-19 virus infection DM type 2 (diabetes mellitus, type 2) Dyslipidemia History of pulmonary embolism Hypertension Myasthenia gravis Osteoarthritis Paroxysmal A-fib Surgical History (Updated 03/16/21 @ 14:14 by Tasha Myles PA-C) History of hernia repair x3 S/P AAA repair Family History Father Cancer Social History Smoking Status: Former smoker Tobacco Type: Cigarettes Cigarettes Per Day: 1 pack; Hx Alcohol Use: No Hx Substance Use: No Preferred Language: Norwegian Communication Ability: Effective 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 Beliefs That Will Affect Care: None Current Living Situation: Rehab Current Living Situation Comment: [facility] Other Information That Helps Us Care for You: No Feels Safe at Home: Yes Safety Concerns: Feels Safe At This Time Assistive Devices: None Review of Systems Review of Systems: All systems reviewed & are unremarkable except as noted in HPI & below Physical Exam Physical Exam: Constitutional: WD/WN, Elderly, M, pale, vitals as above, NAD, sitting up in bed, pleasant, conversing easily Head: Normocephalic, Atraumatic Eyes: PERRL, conjunctivae normal, anicteric sclerae ENMT: external ear and nose normal, oropharynx normal Neck: trachea midline, no thyromegaly normal visual inspection Respiratory: normal respiratory effort, lungs clear to auscultation, no wheeze, rales, rhonchi. Normal insp/exp effort, no accessory muscle use Cardiovascular: IRR/IRR, no murmur, b/l + 2 pretibial and pedal edema, no erythema, negative homans, Vessels: no JVD or carotid bruit Chest: normal inspection of chest Abdomen: normal bowel sounds, soft, nontender, no hepatosplenomegaly Musculoskeletal: no cyanosis or clubbing, AROM x 4 Skin: no rashes, warm and dry normal turgor Neurologic: PERRL, EOMI, accommodation nl, no face palsy, no dysarthria CN's II-XI intact bilaterally and moves all extremities Psychiatric: A+Ox3, euthymic affect Lymphatic: no cervical or axillary lymphadenopathy : sacral erythema, with evidence of skin breakdown Results & Data Results & Data ([facility]) Vital Signs (Past 12 Hours) Vital Signs Temp Pulse Pulse Resp BP BP Pulse Ox 03/16/21 13:00 57 L 20 123/50 L 95 03/16/21 12:32 90 19 121/71 95 03/16/21 10:44 36.5 C 100 H 21 127/62 95 Diagnostic Findings Abdomen/Pelvis CT 03/16/21 11:38 CT abd pelvis IV con only CLINICAL HISTORY: abd pain TECHNIQUE: Helical axial images of the abdomen and pelvis were obtained and displayed. Automated dose lowering techniques and/or adjustment according to patient size were utilized for this exam. This exam was performed with intravenous contrast. COMPARISON: None available at the time of this dictation. FINDINGS: Lower chest: Trace bilateral pleural effusions. There are reticular opacities in the bilateral lung bases which may represent chronic scarring changes Liver: Unremarkable. No focal lesions are seen. Gallbladder and biliary tree: Layering radiodense material is seen in the dependent portion of the gallbladder which may represent sludge versus stones. No intra- or extrahepatic biliary ductal dilation. Pancreas: Unremarkable, no focal lesions. Spleen: Unremarkable. Adrenals: Unremarkable. Kidneys and ureters: Unremarkable. Bladder: Unremarkable. Reproductive organs: Prostatic calcifications are seen which may represent prior hemorrhage or granulomatous disease. Bowel: Diverticulosis is seen without evidence of diverticulitis. The appendix is normal. A small hiatal hernia is seen. A duodenal diverticulum is seen. Lymph nodes Retroperitoneal: Unremarkable. Mesenteric: Unremarkable. Pelvic: Unremarkable. Peritoneum: Normal Vessels: Atherosclerotic calcifications are seen. Abdominal wall: Mild soft tissue stranding is seen in the left greater than right posterior lateral soft tissues. Bones: Degenerative changes in the visualized spine. IMPRESSION: No acute intra-abdominal abnormalities. Soft tissue stranding is seen in the bilateral posterolateral soft tissues, correlation with physical exam is recommended. ACT 112: Negative or not required by law. Electronically signed by: Jeff Manzo M.D. 03/16/2021 12:43 PM Medications Administered Medication List Discontinued Medications Ioversol (Optiray 320 100ml) 90 ml IV ONCE ONE Stop: 03/16/21 12:22 Last Admin: 03/16/21 12:22 Dose: 90 ml Documented by: [id number] COVID-19 Results Results COVID-19 Adm Lab Results: RBC 2.40 M/uL (4.7-6.1) L 03/16/21 WBC 4.54 K/uL (4.8-10.8) L 03/16/21 Hgb 7.2 g/dL (14.0-18.0) L 03/16/21 Hct 22.4 % (42-52) L 03/16/21 Plt Count 248 K/uL (130-400) 03/16/21 Neutrophils (%) (Auto) 71.2 % 03/16/21 Lymphocytes (%) (Auto) 18.7 % 03/16/21 Monocytes # (Auto) 0.08 K/uL (0.11-0.59) L 03/16/21 Eosinophils # (Auto) 0.35 K/uL (0-0.5) 03/16/21 Immature Granulocyte % (Auto) 0.4 % 03/16/21 Neutrophils # (Auto) 3.23 K/uL (1.4-6.5) 03/16/21 Lymphocytes # (Auto) 0.85 K/uL (1.2-3.4) L 03/16/21 Monocytes # (Auto) 0.08 K/uL (0.11-0.59) L 03/16/21 Eosinophils # (Auto) 0.35 K/uL (0-0.5) 03/16/21 Basophils # (Auto) 0.01 K/uL (0-0.2) 03/16/21 Immature Granulocyte # (Auto) 0.02 K/uL (0.00-0.02) 03/16/21 Acanthocytes 1+ 03/16/21 Na 139 mmol/L (136-145) 03/16/21 K 3.6 mmol/L (3.5-5.1) 03/16/21 Cl 107 mmol/L (98-107) 03/16/21 CO2 27 mmol/L (21-32) 03/16/21 Anion Gap 5.0 (3-11) 03/16/21 BUN 6 mg/dl (7-18) L 03/16/21 Creatinine 1.17 mg/dl (0.6-1.4) 03/16/21 BUN/Creatinine Ratio 5.3 (10-20) L 03/16/21 Glucose Level 98 mg/dl (70-99) 03/16/21 Ca 7.8 mg/dl (8.5-10.1) L 03/16/21 Total Bilirubin 0.6 mg/dl (0.2-1) 03/16/21 AST/SGOT 22 U/L (15-37) 03/16/21 ALT/SGPT 10 U/L (12-78) L 03/16/21 Alkaline Phosphatase 69 U/L (45-117) 03/16/21 Total Protein 5.1 gm/dl (6.4-8.2) L 03/16/21 Albumin 1.5 gm/dl (3.4-5.0) L 03/16/21 Globulin 3.6 gm/dl (2.5-4.0) 03/16/21 Albumin/Globulin Ratio 0.4 (0.9-2) L 03/16/21 LDH 198 U/L (87-241) 03/16/21 Ferritin 1309.1 ng/ml (8-388) H 03/16/21 PTT 31.6 Seconds (21.0-31.0) H 03/16/21 INR 1.3 (0.9-1.1) H 03/16/21 COVID-19 PCR NEGATIVE (Negative) 03/16/21 Chest X-Ray 03/16/21 Code Status & VTE Plan Code Status FULL CODE VTE Prophylaxis Plan VTE Prophylaxis will be ordered: No Supervising Physician Co-Signing Physician Notes I have seen and examined the patient and have discussed the case with the provider above. I agree with the assessment and plan as stated. 80 yo M with worsening weakness and lightheadedness. Likely symptomatic anemia, however, agree with cardiology evaluation as above. Physical exam reveals WNWD patient in NAD, mentating clearly, ireegular heart rhythm, S1/2 heard without m/g/r, clear lungs to auscultation. Agree with plan above to transfuse one unit of blood, correct electrolytes and have cardiology evaluate him with new onset afib. DO Patricio
[2021-03-16] MEDS ORDERED: GLUCOSE 40% GEL 15 GM TUBE PO PRN (14:52)
[2021-03-16] MEDS ORDERED: GLUCAGON FOR INJ 1 MG VIAL SQ PRN (14:52)
[2021-03-16] MEDS ORDERED: GLUCOSE 10 TABS/TUBE PO PRN (14:52)
[2021-03-16] MEDS ORDERED: ACETAMINOPHEN 325 MG TAB PO PRN (14:52)
[2021-03-16] MEDS ORDERED: LORazepam 0.5 MG TAB PO PRN (14:52)
[2021-03-16] MEDS ORDERED: ALUMINUM/MAGNESIUM SUSP 30 ML UDC PO PRN (14:52)
[2021-03-16] MEDS ORDERED: MAGNESIUM HYDROXIDE SUSP 30 ML UDC PO PRN (14:52)
[2021-03-16] MEDS ORDERED: DIPHENOXYLATE/ATROPINE 2.5/0.025MG TAB PO PRN (14:52)
[2021-03-16] MEDS ORDERED: DEXTROSE 50% 50 ML SYRINGE IV PRN (14:52)
[2021-03-16] MEDS ORDERED: CARBOHYDRATES FOR HYPOGLYCEMIA PO PRN (14:52)
[2021-03-16] MEDS ORDERED: POLYETHYLENE (MIRALAX) 17 GM PACK PO PRN (14:52)
--- NOTE | 2021-03-16 15:17 | XRay Report ---
XR chest 1V portable CLINICAL HISTORY: edema r/o chf TECHNIQUE: Single frontal radiograph of the chest was obtained. Comparison: None available at the time of this dictation. FINDINGS: No lines and tubes are seen. Cardiomegaly is noted. Interspace opacity of the left lateral lung base is again noted. Previously noted left midlung opacity is less conspicuous on today's exam. No evidenc e of pleural effusion or pneumothorax. IMPRESSION: 1. No significant pulmonary edema is seen. Stable cardiomegaly. 2. Left lung base airspace opacity is unchanged from prior exam. Previously noted left midlung opaci ty is less conspicuous than on prior exam and likely represents atelectasis. ACT 112: Negative or not required by law. Electronically signed by: Jeff Manzo M.D. 03/16/2021 3:16 PM
[2021-03-16] MEDS ORDERED: ACETAMINOPHEN 500 MG TAB PO SCH (15:30)
[2021-03-16] MEDS: TAMSULOSIN HCL 0.4 MG CAP PO SCH (17:05)
[2021-03-16 17:34] LABS: Folate (Folic Acid) 5.7 ng/ml (>5.38)
[2021-03-16] MEDS: MAGNESIUM SULFATE / D5W 1 GM/100 ML BAG IV SCH ×2 (20:43→21:59)
[2021-03-16] MEDS: APIXABAN 5 MG TABLET PO SCH (20:44)
[2021-03-16] MEDS: ATORVASTATIN 10 MG TAB PO SCH (20:44)
[2021-03-16] MEDS: POTASSIUM CHLORIDE CRTAB 20 MEQ TABCR PO SCH (20:44)
[2021-03-16] MEDS: PYRIDOSTIGMINE BROMIDE 60 MG TAB PO SCH (20:46)
[2021-03-16] MEDS: METOPROLOL TARTRATE 25 MG TAB PO SCH (20:47)
--- NOTE | 2021-03-17 05:42 | Electrocardiogram Report ---
Test Reason : Blood Pressure : / mmHG Vent. Rate : 103 BPM Atrial Rate : 117 BPM P-R Int : 000 ms QRS Dur : 126 ms QT Int : 404 ms P-R-T Axes : 000 -51 087 degrees QTc Int : 529 ms Sinus rhythm with frequent Premature supraventricular complexes Left axis deviation Right bundle branch block T wave abnormality, consider lateral ischemia Abnormal ECG When compared with ECG of 17-FEB-2021 06:50, No significant change Confirmed by Donell Barragan ([id number]) on 03/17/2021 5:41:32 AM Referred By: [facility] Confirmed By:Donell Barragan
[2021-03-17] MEDS: PANTOprazole 40 MG TAB PO SCH (06:31)
[2021-03-17 07:12] LABS: Basophils # (auto) 0.01 K/uL (0-0.2); Basophils % (auto) 0.2 %; Eosinophils # (auto) 0.45 K/uL (0-0.5); Eosinophils % (auto) 11.1 %; Hematocrit (blood only) 23.8 % (42-52); Hemoglobin 7.6 g/dL (14.0-18.0); Immature Granulocytes # (auto) 0.03 K/uL (0.00-0.02); Immature Granulocytes % (auto) 0.7 %; Lymphocytes # (auto) 0.85 K/uL (1.2-3.4); Lymphocytes % (auto) 20.9 %; Mean Corpuscular Hemoglobin 29.2 pg (25-34); Mean Corpuscular Hgb Conc 31.9 g/dL (32-36); Mean Corpuscular Volume 91.5 fL (80-100); Monocytes # (auto) 0.06 K/uL (0.11-0.59); Monocytes % (auto) 1.5 %; Neutrophils # (auto) 2.67 K/uL (1.4-6.5); Neutrophils % (auto) 65.6 %; Platelet Count 242 K/uL (130-400); RDW Coefficient of Variation 16.9 % (11.5-14.5); RDW Standard Deviation 54.5 fL (36.4-46.3); White Blood Count 4.07 K/uL (4.8-10.8)
[2021-03-17 07:36] LABS: Ovalocytes 1+
[2021-03-17 07:41] LABS: BUN Creatinine Ratio 5.8 (10-20); Calcium 7.4 mg/dl (8.5-10.1); Creatinine Clr Calc Pharmacy 77.3 ml/min; Est GFR (African American) 90.1 ml/min; Est GFR (Non-African American) 77.7 ml/min; Magnesium 1.8 mg/dl (1.8-2.4); Potassium 3.3 mmol/L (3.5-5.1)
[2021-03-17 08:19] LABS: Estimated Average Glucose 157 mg/dl; Hemoglobin A1C 7.1 % (4.5-5.6)
--- NOTE | 2021-03-17 10:08 | Cardiology Consultation ---
Date of Consultation March 17, 2021 Assessment & Plan (1) Paroxysmal A-fib: (2) History of pulmonary embolism: (3) COVID-19 virus infection: (4) Hypertension: (5) Acute renal failure due to tubular necrosis: (6) Critical illness myopathy: (7) Chronic diarrhea: (8) Nausea: (9) Anemia: The Pathophysiology and treatment options for atrial fibrillation were discussed with him at great length today. He is currently asymptomatic, rate controlled and appropriate anticoagulation. No changes recommended from a cardiac standpoint. History of Present Illness Reason for Consultation: paf Requesting Physician: Dr. Curry Attending Physician: Zuri Curry, DO History of Present Illness was my pleasure to see Mr. Wild in cardiac consultation today March 17, 2021. He is a very pleasant 80 gentleman who has not previously been seen by our Cardiology practice. He presented to [facility] on March 16, 2021 with symptomatic anemia. It was infected with COVID-19 earlier this year and since then has had multiple complications and multiple hospital admissions. Most of these have been at [facility]. He was previously found to have atrial fibrillation during 1 of those admissions and he was started on Eliquis and metoprolol that time. From a cardiac standpoint he is completely asymptomatic. He states he has never felt the AFib and denies experiencing any recent chest pain, shortness of breath, palpitations, lightheadedness, dizziness or syncope. Lately he has been feeling very tired and very run down. He states he has been compliant with his medications. Allergies Allergy/AdvReac Type Severity Reaction Status Date / Time onion Allergy Unknown Unverified 02/16/21 15:04 pork derived (porcine) Allergy Unknown Unverified 02/16/21 15:04 lactose AdvReac Unknown Nausea Verified 02/23/21 11:01 Home Medications Medication Instructions Recorded Confirmed Type acetaminophen 325 mg tablet 650 mg PO Q4H PRN 02/16/21 03/16/21 History (Tylenol) apixaban 5 mg tablet (Eliquis) 5 mg PO Q12 02/16/21 03/16/21 History ascorbic acid (vitamin C) 1,000 mg 1,000 mg PO DAILY 02/16/21 03/16/21 History tablet,extended release atorvastatin 10 mg tablet (Lipitor) 10 mg PO HS 02/16/21 03/16/21 History azathioprine 50 mg tablet (Imuran) 100 mg PO DAILY 02/16/21 03/16/21 History benzonatate 100 mg capsule 100 mg PO TID PRN 02/16/21 03/16/21 History (Bryce Chow) calcium carbonate 500 mg (1,250 1 tab PO DAILY 02/16/21 03/16/21 History mg)-vitamin D3 200 unit tablet (Calcium 500 + D) citalopram 40 mg tablet (Celexa) 40 mg PO DAILY 02/16/21 03/16/21 History diphenoxylate-atropine 2.5 1 tab PO QID PRN 02/16/21 03/16/21 History mg-0.025 mg tablet (Lomotil) docusate sodium 100 mg capsule 100 mg PO BID 02/16/21 03/16/21 History metoprolol tartrate 25 mg tablet 25 mg PO Q12H 02/16/21 03/16/21 History ondansetron HCl 4 mg tablet 4 mg PO Q8H PRN 02/16/21 03/16/21 History (Zofran) pantoprazole 40 mg tablet,delayed 40 mg PO DAILYBB 02/16/21 03/16/21 History release (Protonix) pyridostigmine bromide 60 mg 60 mg PO BIDM 02/16/21 03/16/21 History tablet (Mestinon) tamsulosin 0.4 mg capsule (Flomax) 0.4 mg PO QDD 02/16/21 03/16/21 History zinc sulfate 50 mg zinc (220 mg) 50 mg PO DAILY 02/16/21 03/16/21 History capsule (Zinc-220) lorazepam 0.5 mg tablet 0.5 mg PO TID PRN 03/16/21 03/16/21 History magnesium oxide 400 mg PO BID 03/16/21 03/16/21 History potassium chloride 20 mEq 20 meq PO TID 03/16/21 03/16/21 History tablet,extended release pyridostigmine bromide 60 mg tablet 90 mg PO HS 03/16/21 03/16/21 History Patient History Medical History COVID-19 virus infection DM type 2 (diabetes mellitus, type 2) Dyslipidemia History of pulmonary embolism Hypertension Myasthenia gravis Osteoarthritis Paroxysmal A-fib Surgical History History of hernia repair x3 S/P AAA repair Family History Father Cancer Social History Smoking Status: Former smoker Tobacco Type: Cigarettes Cigarettes Per Day: 1 pack; Hx Alcohol Use: No Hx Substance Use: No Preferred Language: Welsh Communication Ability: Effective Retort Cooler Required: No Beliefs That Will Affect Care: None marital status: Current Living Situation: Rehab Current Living Situation Comment: [facility] How many Children do You have: 1 Other Information That Helps Us Care for You: No Feels Safe at Home: Yes Safety Concerns: Feels Safe At This Time Assistive Devices: Walker Review of Systems Review of Systems: All systems reviewed & are unremarkable except as noted in HPI & below Physical Exam Physical Exam: General: Awake, alert and oriented x 3. No acute distress. HEENT: Normocephalic, atraumatic. Pupils equal, round and reactive to light and accommodation. Extraocular muscles are intact. Anicteric sclera. Moist mucous membranes. Neck: No JVD. No bruit. Cardiovascular: irregularly irregular, unable to appreciate murmur, rub or gallop. Pulmonary: Clear to auscultation bilaterally. No rales, rhonchi, or wheezing. Abdomen: Bowel sounds x 4, soft. No rebound, guarding or tenderness. No organomegaly. Extremities: No clubbing, cyanosis or edema. +2 pedal pulses bilaterally. Skin: Warm and dry. Results & Data ([facility]) Vital Signs (Past 12 Hours) Vital Signs Temp Pulse Pulse Resp BP Pulse Ox 03/17/21 08:20 41 L 03/17/21 07:35 36.6 C 71 18 121/65 95 03/17/21 04:54 36.8 C 66 16 144/56 H 96 03/17/21 02:04 79 03/16/21 23:12 36.3 C L 91 H 16 115/62 96 (1) Anemia Anemia type: unspecified type Qualified Code(s): D64.9 - Anemia, unspecified
[2021-03-17] MEDS: APIXABAN 5 MG TABLET PO SCH ×2 (10:11→21:08)
[2021-03-17] MEDS: METOPROLOL TARTRATE 25 MG TAB PO SCH ×2 (10:11→21:14)
[2021-03-17] MEDS: PYRIDOSTIGMINE BROMIDE 60 MG TAB PO SCH ×3 (10:11→21:13)
[2021-03-17] MEDS: POTASSIUM CHLORIDE CRTAB 20 MEQ TABCR PO SCH (10:12)
[2021-03-17] MEDS: ZINC SULFATE 220 MG CAPSULE PO SCH (10:12)
[2021-03-17] MEDS: CITALOPRAM 40 MG TAB PO SCH (10:12)
[2021-03-17] MEDS: CALCIUM CARBONATE 1250MG TAB PO SCH (10:12)
[2021-03-17] MEDS: azaTHIOprine 50 MG TAB PO SCH (10:13)
[2021-03-17] MEDS ORDERED: SODIUM CHLORIDE 0.9% 250 ML IV PRN (12:40)
[2021-03-17] MEDS ORDERED: ACETAMINOPHEN 325 MG TAB PO SCH (13:00)
[2021-03-17] MEDS ORDERED: diphenhydrAMINE Capsule 25 MG CAP PO SCH (13:00)
--- NOTE | 2021-03-17 13:11 | Gastrointestinal Consultation ---
Date of Consultation March 17, 2021 Assessment & Plan (1) Nausea: Recommend EGD (2) Chronic diarrhea: Recommend colonoscopy I explained the indications for EGD (r/o ulcers, esophagitis, danish or other causes of nausea) and colonoscopy (r/o infection and microscopic colitis - and other causes of diarrhea). Pt is,"deathly afraid," of undergoing EGD and colonoscopy stating he has "been through so much." He prefers medical tx of symptoms. He says he has never undergone endoscopy. He asks that medicines be given during/after a meal because his worst nausea is in the morning after taking several pills. This seems reasonable. He is prescribed Lomotil QID prn. Would change to Immoidum, to avoid antichoilnergic that would be contra indicated in MG, and would hold if becomes constipated. If not effective, then would try cholestyramine - but this would have to be separately from other medicines (by at least 2 hrs). Would also consider adding Remeron for an appetite stimulant - but will defer to primary hospitalists. If patient changes his mind, we would be happy to provide EGD, colonoscopy. Supervising Physician Co-Signing Physician Notes Attg add: I interviewed and examined pt, reviewed chart and labs. Pt with anemia, diarrhea. He refuses endoscopy, cscopy. Would use Immodium, cholestyramine as needed for diarrhea. History of Present Illness Reason for Consultation: Persistent Nausea, Diarrha Requesting Physician: Dr. Curry Attending Physician: Zuri Curry, DO History of Present Illness Mr. Wild is an 80-year-old male with myasthenia gravis, DM2, COVID in January complicated by pneumonia,PE, New A-fib. He was brought to the ED for eval of anemia on 03/16/21. He reports ongoing diarrhea and nausea since COVID. He has tested (-) for C-diff x 2 and cultures were (-). He passes 3-5 loose BMs/day w/o any significant abdominal pain and no blood in BMs. He mentions that prior to COVID he had some incontinence which has been worse since the COVID. He reports ongoing nausea, worse on an empty stomach but denies any upper abdomen pain or burning and has not had any vomiting. He has decreased appetite. No reflux symptoms. His weight was 240at the time of the onset of COVID and is now 221 lbs. He has had a protracted recovery, not having been in his own home since January. He recalls that Lomotil was effective for the diarrhea previously at another facility. Allergies Allergy/AdvReac Type Severity Reaction Status Date / Time onion Allergy Unknown Unverified 02/16/21 15:04 pork derived (porcine) Allergy Unknown Unverified 02/16/21 15:04 lactose AdvReac Unknown Nausea Verified 02/23/21 11:01 Home Medications Medication Instructions Recorded Confirmed Type acetaminophen 325 mg tablet 650 mg PO Q4H PRN 02/16/21 03/16/21 History (Tylenol) apixaban 5 mg tablet (Eliquis) 5 mg PO Q12 02/16/21 03/16/21 History ascorbic acid (vitamin C) 1,000 mg 1,000 mg PO DAILY 02/16/21 03/16/21 History tablet,extended release atorvastatin 10 mg tablet (Lipitor) 10 mg PO HS 02/16/21 03/16/21 History azathioprine 50 mg tablet (Imuran) 100 mg PO DAILY 02/16/21 03/16/21 History benzonatate 100 mg capsule 100 mg PO TID PRN 02/16/21 03/16/21 History (Tessalon Perles) calcium carbonate 500 mg (1,250 1 tab PO DAILY 02/16/21 03/16/21 History mg)-vitamin D3 200 unit tablet (Calcium 500 + D) citalopram 40 mg tablet (Celexa) 40 mg PO DAILY 02/16/21 03/16/21 History diphenoxylate-atropine 2.5 1 tab PO QID PRN 02/16/21 03/16/21 History mg-0.025 mg tablet (Lomotil) docusate sodium 100 mg capsule 100 mg PO BID 02/16/21 03/16/21 History metoprolol tartrate 25 mg tablet 25 mg PO Q12H 02/16/21 03/16/21 History ondansetron HCl 4 mg tablet 4 mg PO Q8H PRN 02/16/21 03/16/21 History (Zofran) pantoprazole 40 mg tablet,delayed 40 mg PO DAILYBB 02/16/21 03/16/21 History release (Protonix) pyridostigmine bromide 60 mg 60 mg PO BIDM 02/16/21 03/16/21 History tablet (Mestinon) tamsulosin 0.4 mg capsule (Flomax) 0.4 mg PO QDD 02/16/21 03/16/21 History zinc sulfate 50 mg zinc (220 mg) 50 mg PO DAILY 02/16/21 03/16/21 History capsule (Zinc-220) lorazepam 0.5 mg tablet 0.5 mg PO TID PRN 03/16/21 03/16/21 History magnesium oxide 400 mg PO BID 03/16/21 03/16/21 History potassium chloride 20 mEq 20 meq PO TID 03/16/21 03/16/21 History tablet,extended release pyridostigmine bromide 60 mg tablet 90 mg PO HS 03/16/21 03/16/21 History Patient History Medical History COVID-19 virus infection DM type 2 (diabetes mellitus, type 2) Dyslipidemia History of pulmonary embolism Hypertension Myasthenia gravis Osteoarthritis Paroxysmal A-fib Surgical History History of hernia repair x3 S/P AAA repair Family History Father Cancer Social History Smoking Status: Former smoker Tobacco Type: Cigarettes Cigarettes Per Day: 1 pack; Hx Alcohol Use: No Hx Substance Use: No Preferred Language: Japanese Communication Ability: Effective Instrumentation Chemist Required: No Beliefs That Will Affect Care: None marital status: Current Living Situation: Rehab Current Living Situation Comment: [facility] How many Children do You have: 1 Other Information That Helps Us Care for You: No Feels Safe at Home: Yes Safety Concerns: Feels Safe At This Time Assistive Devices: Walker Review of Systems Review of Systems: ROS: Eyes: No eye redness, or pain, no recent vision changes Resp: No SOB, no cough Cardio: No palpitations/irregular beats, no chest pain GI: As per HPI, otherwise (-) : Denies pain on urination Skin: No jaundice, itching or new rashes Neuro: decreased lower leg strength since COVID - pt reports unable to walk since January. Constitutional: +weakness, weight loss, denies fevers, chills sweats Physical Exam Constitutional: well developed, + ill appearing (chronically) and cooperative; no acute distress Eyes: PERRL, conjunctivae normal, anicteric sclerae Neck: trachea midline, no thyromegaly Respiratory: normal respiratory effort and able to speak in complete sentences; no respiratory distress, no labored breathing, does not use accessory muscles and no cough + crackles right base, otherwise lungs are clear Cardiovascular: RRR, no murmur, no edema Gastrointestinal (Abdomen): normal bowel sounds, soft, nontender, no hepatosplenomegaly Inspection/Auscultation: abdomen normal to inspection and normal bowel sounds; abdomen not distended and no abdominal edema Skin: no rashes, warm and dry + pallor Neurologic: PERRL, EOMI, accommodation nl, no face palsy, no dysarthria awake; not confused Psychiatric: A+Ox3, euthymic affect Orientation: alert, oriented x 3 and cooperative Results & Data ([facility]) Vital Signs (Past 12 Hours) Vital Signs Temp Pulse Pulse Resp BP Pulse Ox 03/17/21 11:15 36.9 C 77 18 129/77 98 03/17/21 08:20 41 L 03/17/21 07:35 36.6 C 71 18 121/65 95 03/17/21 04:54 36.8 C 66 16 144/56 H 96 03/17/21 02:04 79 Laboratory Results WBC 4, Hb 7, Hct 23, Plts 242, Na 143, K 3.3, Cl 111, CO2 23, BUN 5, Cr 0.92. Diagnostic Findings CTAP with IV contrast on 03/16/21: No acute intra-abdominal abnormalities. Soft tissue stranding is seen in the bilateral posterolateral soft tissues, correlation with physical exam is recommended. CXR 03/16/21: 1. No significant pulmonary edema is seen. Stable cardiomegaly. 2. Left lung base airspace opacity is unchanged from prior exam. Previously noted left midlung opacity is less conspicuous than on prior exam and likely represents atelectasis.
[2021-03-17] MEDS ORDERED: POTASSIUM CHLORIDE 20 MEQ/15 ML UDC PO SCH (14:00)
[2021-03-17] MEDS: POTASSIUM ACETATE/NSS 10 MEQ/105 ML BAG IV SCH ×2 (16:25→17:22)
[2021-03-17] MEDS: DIPHENOXYLATE/ATROPINE 2.5/0.025MG TAB PO SCH ×2 (17:01→21:09)
[2021-03-17] MEDS: TAMSULOSIN HCL 0.4 MG CAP PO SCH (17:01)
[2021-03-17] MEDS: ATORVASTATIN 10 MG TAB PO SCH (21:08)
[2021-03-18] MEDS: PANTOprazole 40 MG TAB PO SCH (06:08)
[2021-03-18 07:04] LABS: Hematocrit (blood only) 27.5 % (42-52); Mean Corpuscular Hgb Conc 32.7 g/dL (32-36); Mean Corpuscular Volume 91.7 fL (80-100); Mean Platelet Volume 10.2 fL (7.4-10.4); Platelet Count 265 K/uL (130-400); RDW Coefficient of Variation 16.7 % (11.5-14.5); RDW Standard Deviation 54.5 fL (36.4-46.3); White Blood Count 4.39 K/uL (4.8-10.8)
--- NOTE | 2021-03-18 07:39 | Electrocardiogram Report ---
Test Reason : Blood Pressure : / mmHG Vent. Rate : 096 BPM Atrial Rate : 092 BPM P-R Int : 000 ms QRS Dur : 130 ms QT Int : 406 ms P-R-T Axes : 000 -59 093 degrees QTc Int : 512 ms Sinus rhythm with frequent Premature atrial complexes Left axis deviation Right bundle branch block Nonspecific T wave abnormality Lateral leads Abnormal ECG When compared with ECG of 16-MAR-2021 10:44, No significant change Confirmed by Onesimo Morejon ([id number]) on 03/18/2021 7:39:26 AM Referred By: [facility] Confirmed By:Onesimo Morejon
[2021-03-18 07:44] LABS: BUN Creatinine Ratio 6.1 (10-20); Calcium 7.7 mg/dl (8.5-10.1); Creatinine Clr Calc Pharmacy 87.8 ml/min; Est GFR (African American) 96.6 ml/min; Est GFR (Non-African American) 83.4 ml/min; Magnesium 1.7 mg/dl (1.8-2.4); Phosphorus 2.4 mg/dl (2.5-4.9); Potassium 3.6 mmol/L (3.5-5.1)
--- NOTE | 2021-03-18 09:20 | Hospitalist Progress Note ---
Date of Service March 17, 2021 Assessment & Plan (1) Anemia: Plan: Likely multifactorial given excessive phlebotomy, recent illnesses, multiple comorbidities. GI bleed always a possibility but currently he is without overt bleeding. With ongoing symptoms will transfuse one more unit of blood now. (2) Paroxysmal A-fib: Plan: cont metoprolol, eliquis, Cards consult out of concern that he just may not be tolerating the rhythm correctly (3) Lower extremity edema: Plan: b/l lower ext edema, pt reports chronic but worse since recent hospitalization currently full anticoagulated with eliquis, no erythema or s/sx of dvt Likely multifactorial with low albumin, dependency also possible component of cardiac etiology in setting of afib elevate lower extremities, TEDs as tolerated. (4) History of COVID-19: Plan: 01/2021 s/p remdesivir and dexamethasone, not currently requiring treatment or isolation. (5) History of pulmonary embolism: Plan: Diagnosed in Jan 2021, cont anticoagulation with Eliquis unless acutely bleeding (6) Myasthenia gravis: Plan: continue Pyridostigmine and azathioprine, no evidence of crisis despite generalized weakness, PT/OT to assess. (7) DM type 2 (diabetes mellitus, type 2): Plan: last a1c 6.7 12/2020 obtain a1c in a.m. diet control for now and hold any insulin coverage. (8) Hypertension: Plan: BP stable, cont current therapy (9) Diarrhea: Plan: chronic diarrhea, not infectious, ongoing x 3 months. GI consult. Lomotil PRN. Replace lytes as needed. 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 Zuri Curry DO [facility] Hospitalist Admission and Anticipated Discharge Date Admission Date: March 16, 2021 Subjective 80 yo M presented with weakness in the setting of anemia. Recent prolonged acute illness and hospitalization including Covid hospitalization complicated by pneumonia with pulmonary embolism and paroxysmal atrial fibrillation. This is in the context of a history of myasthenia gravis and diabetes. He was transfused 1 unit of blood overnight with H&H going from 7.2/22.4-7.6/23.8. No gross blood per rectum. Patient still continues to feel the same including nausea, weakness and fatigue. He continues to have ongoing diarrhea since his Covid diagnosis 2 months ago. With this and current nausea that occurs approximately twice per week, not triggered by anything in particular but seemingly better with bowel movements, GI was consulted. Echocardiogram performed and was within normal limits. Cardiology evaluation reveals no apparent acute decompensation from cardiac perspective. Patient denies any chest pain, shortness of breath or abdominal pain. He has not gotten out of bed because he is still too weak. Giving additional unit of blood at this time. Review of Systems Review of Systems: All systems reviewed and negative except as indicated in subjective above. Physical Exam Physical Exam: CONSTITUTIONAL: WNWD, vitals as above, generally ill- appearing, NAD EYES: normal conjunctivae, no scleral icterus ENT: external ear and nose normal, MMM NECK: trachea midline RESPIRATORY: clear to auscultation bilaterally, no crackles, rales or wheezes, normal respiratory effort CARDIOVASCULAR: regular rate and rhythm, S1 and 2 heard without murmurs, gallops or rubs, no JVD, no peripheral edema GASTROINTESTINAL: soft, nontender, ND, no guarding MUSCULOSKELETAL: generalized weakness without gross focal deficits. Head is normocephalic and atraumatic SKIN: warm and dry NEUROLOGIC: CN 2-12 grossly intact, normal cognition, normal speech, no tremor, no gross focal deficits. PSYCHIATRIC: alert cooperative and oriented to person, place and time. Results & Data Results & Data ([facility]) Vital Signs (Past 12 Hours) Vital Signs Temp Pulse Pulse Resp BP Pulse Ox 03/18/21 08:37 87 03/18/21 06:32 36.5 C 64 16 136/84 95 03/18/21 03:40 36.6 C 80 18 127/66 93 03/17/21 23:15 36.5 C 56 L 16 117/66 96 03/17/21 23:00 54 L
[2021-03-18] MEDS: METOPROLOL TARTRATE 25 MG TAB PO SCH ×3 (09:31→20:31)
[2021-03-18] MEDS: APIXABAN 5 MG TABLET PO SCH ×2 (09:33→20:32)
[2021-03-18] MEDS: ZINC SULFATE 220 MG CAPSULE PO SCH (09:33)
[2021-03-18] MEDS: DIPHENOXYLATE/ATROPINE 2.5/0.025MG TAB PO SCH (09:33)
[2021-03-18] MEDS: CALCIUM CARBONATE 1250MG TAB PO SCH (09:34)
[2021-03-18] MEDS: PYRIDOSTIGMINE BROMIDE 60 MG TAB PO SCH ×3 (09:35→20:32)
[2021-03-18] MEDS: CITALOPRAM 40 MG TAB PO SCH (09:35)
[2021-03-18] MEDS: azaTHIOprine 50 MG TAB PO SCH (09:35)
[2021-03-18] MEDS: MAGNESIUM SULFATE / D5W 1 GM/100 ML BAG IV SCH ×2 (09:47→11:57)
--- NOTE | 2021-03-18 10:02 | Cardiology Progress Note ---
Date of Service March 18, 2021 Assessment & Plan (1) Paroxysmal A-fib: (2) History of pulmonary embolism: (3) COVID-19 virus infection: (4) Hypertension: (5) Acute renal failure due to tubular necrosis: (6) Critical illness myopathy: (7) Chronic diarrhea: (8) Nausea: (9) Anemia: Plan: From a cardiac standpoint did have episodes of bradycardia overnight but is now slightly tachycardic this a.m. We will change metoprolol to 12.5 mg p.o. twice daily and continue to monitor Continue Eliquis anticoagulation Admission and Anticipated Discharge Date Admission Date: March 16, 2021 Subjective Patient seen and examined, chart reviewed. Lethargic today and continued difficulty eating with significant dysphagia and choking. Denies cardiac complaints of chest pain, shortness of breath, palpitations, lightheadedness, dizziness or syncope. Telemetry reviewed: Atrial fibrillation rate controlled with episodes of bradycardia into the 30s and 40s overnight Review of Systems Review of Systems: All systems reviewed & are unremarkable except as noted in HPI & below Physical Exam Physical Exam: General: Awake, alert and oriented x 3. No acute distress. HEENT: Normocephalic, atraumatic. Pupils equal, round and reactive to light and accommodation. Extraocular muscles are intact. Anicteric sclera. Moist mucous membranes. Neck: No JVD. No bruit. Cardiovascular: irregularly irregular, unable to appreciate murmur, rub or gallop. Pulmonary: Clear to auscultation bilaterally. No rales, rhonchi, or wheezing. Abdomen: Bowel sounds x 4, soft. No rebound, guarding or tenderness. No organomegaly. Extremities: No clubbing, cyanosis or edema. +2 pedal pulses bilaterally. Skin: Warm and dry. Results & Data ([facility]) Vital Signs (Past 12 Hours) Vital Signs Temp Pulse Pulse Resp BP Pulse Ox 03/18/21 08:37 87 03/18/21 06:32 36.5 C 64 16 136/84 95 03/18/21 03:40 36.6 C 80 18 127/66 93 03/17/21 23:15 36.5 C 56 L 16 117/66 96 03/17/21 23:00 54 L (1) Anemia Anemia type: unspecified type Qualified Code(s): D64.9 - Anemia, unspecified
[2021-03-18] MEDS: ONDANSETRON INJ 2 MG/ML 2 ML VIAL IV PRN (10:09)
[2021-03-18] MEDS ORDERED: PROMETHAZINE HCL 25 MG TAB PO PRN (12:11)
[2021-03-18] MEDS ORDERED: DIPHENOXYLATE/ATROPINE 2.5/0.025MG TAB PO PRN (12:11)
[2021-03-18] MEDS ORDERED: SODIUM CHLORIDE 0.9% 1000ML 1,000 ML IV ONE (12:12)
[2021-03-18] MEDS: TAMSULOSIN HCL 0.4 MG CAP PO SCH (17:13)
[2021-03-18] MEDS: ATORVASTATIN 10 MG TAB PO SCH (20:31)
[2021-03-19] MEDS: azaTHIOprine 50 MG TAB PO SCH (08:11)
[2021-03-19] MEDS: METOPROLOL TARTRATE 25 MG TAB PO SCH ×2 (08:11→20:06)
[2021-03-19] MEDS: PYRIDOSTIGMINE BROMIDE 60 MG TAB PO SCH ×3 (08:13→20:07)
[2021-03-19] MEDS: CITALOPRAM 40 MG TAB PO SCH (08:13)
[2021-03-19] MEDS: APIXABAN 5 MG TABLET PO SCH (08:14)
--- NOTE | 2021-03-19 10:02 | Cardiology Progress Note ---
Date of Service March 19, 2021 Assessment & Plan (1) Paroxysmal A-fib: (2) History of pulmonary embolism: (3) COVID-19 virus infection: (4) Hypertension: (5) Acute renal failure due to tubular necrosis: (6) Critical illness myopathy: (7) Chronic diarrhea: (8) Nausea: (9) Anemia: Plan: now in sinus with frequent ectopy continue metoprolol to 12.5 mg p.o. twice daily Continue Eliquis anticoagulation I made our GI colleagues aware of his desire to proceed with EGD. Ok to hold Eliquis for procedure Admission and Anticipated Discharge Date Admission Date: March 16, 2021 Subjective Pt seen and examined, chart reviewed. States that he's feeling well today. He spoke with his and daughter last night and now would like to proceed with EGD. Denies cp, sob, palpitations or lightheadedness. tele reviewed: sinus rhythm with PAC's Review of Systems Review of Systems: All systems reviewed & are unremarkable except as noted in HPI & below Physical Exam Physical Exam: General: Awake, alert and oriented x 3. No acute distress. HEENT: Normocephalic, atraumatic. Pupils equal, round and reactive to light and accommodation. Extraocular muscles are intact. Anicteric sclera. Moist mucous membranes. Neck: No JVD. No bruit. Cardiovascular: irregularly irregular, unable to appreciate murmur, rub or gallop. Pulmonary: Clear to auscultation bilaterally. No rales, rhonchi, or wheezing. Abdomen: Bowel sounds x 4, soft. No rebound, guarding or tenderness. No organomegaly. Extremities: No clubbing, cyanosis or edema. +2 pedal pulses bilaterally. Skin: Warm and dry. Results & Data ([facility]) Vital Signs (Past 12 Hours) Vital Signs Temp Pulse Pulse Resp BP Pulse Ox 03/19/21 09:04 36.6 C 78 18 142/65 H 95 03/19/21 07:19 60 03/19/21 02:20 37.2 C 65 18 135/67 94 03/18/21 22:34 36.9 C 65 18 139/61 95 (1) Anemia Anemia type: unspecified type Qualified Code(s): D64.9 - Anemia, unspecified
[2021-03-19 11:09] LABS: Hematocrit (blood only) 29.1 % (42-52); Hemoglobin 9.3 g/dL (14.0-18.0); Mean Corpuscular Hemoglobin 29.2 pg (25-34); Mean Corpuscular Volume 91.5 fL (80-100); Mean Platelet Volume 9.8 fL (7.4-10.4); Platelet Count 253 K/uL (130-400); RDW Coefficient of Variation 16.3 % (11.5-14.5); RDW Standard Deviation 53.7 fL (36.4-46.3); Red Blood Count 3.18 M/uL (4.7-6.1); White Blood Count 3.73 K/uL (4.8-10.8)
[2021-03-19 11:27] LABS: BUN Creatinine Ratio 4.5 (10-20); Calcium 7.3 mg/dl (8.5-10.1); Creatinine Clr Calc Pharmacy 82.8 ml/min; Est GFR (African American) 92.5 ml/min; Est GFR (Non-African American) 79.8 ml/min; Potassium 3.1 mmol/L (3.5-5.1)
[2021-03-19] MEDS ORDERED: POTASSIUM CHLORIDE 40 MEQ in SODIUM CHLORIDE 0.9% 500 ML IV SCH (12:00)
[2021-03-19] MEDS ORDERED: ENOXAPARIN 1 MG/KG SQ SCH (12:15)
--- NOTE | 2021-03-19 12:16 | Hospitalist Progress Note ---
Date of Service March 18, 2021 Assessment & Plan (1) Anemia: Plan: Likely multifactorial given excessive phlebotomy, recent illnesses, multiple comorbidities. GI bleed always a possibility but currently he is without overt bleeding. Patient is currently declining an upper and lower scope. Also no improvement despite correction of anemia into a more normal range. Cont to monitor blood counts for now. (2) Paroxysmal A-fib: Plan: cont metoprolol, eliquis, doing well from a cardiac perpective. (3) Lower extremity edema: Plan: b/l lower ext edema, pt reports chronic but worse since recent hospitalization currently full anticoagulated with eliquis, no erythema or s/sx of dvt Likely multifactorial with low albumin, dependency also possible component of cardiac etiology in setting of afib elevate lower extremities, TEDs as tolerated. (4) History of COVID-19: Plan: 01/2021 s/p remdesivir and dexamethasone, not currently requiring treatment or isolation. (5) History of pulmonary embolism: Plan: Diagnosed in Jan 2021, cont anticoagulation with Eliquis unless acutely bleeding, currently declining scope (6) Myasthenia gravis: Plan: continue Pyridostigmine and azathioprine, no evidence of crisis despite generalized weakness, PT/OT to assess. Per respiratory, he pulled a NIF x 2 of -40cc. Doing well from a breathing standpoint, no evidence of crisis. Requested outpatient neurology records from last week's visit. (7) DM type 2 (diabetes mellitus, type 2): Plan: last a1c 6.7 12/2020 obtain a1c in a.m. diet control for now and hold any insulin coverage. (8) Hypertension: Plan: BP stable, cont current therapy (9) Diarrhea: Plan: chronic diarrhea, not infectious, ongoing x 3 months. GI recommending colonoscopy which patient has declined. Lomotil PRN. Replace lytes as needed. 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 I spoke with his by phone today and updated her on his progress. She is in favor of him getting the endoscopies and will speak with him. Records from [facility] requested from last week's clinic visit. [facility] and Anticipated Discharge Date Admission Date: March 16, 2021 Subjective 80 yo M presented with weakness in the setting of anemia. Recent prolonged acute illness and hospitalization including Covid hospitalization complicated by pneumonia with pulmonary embolism and paroxysmal atrial fibrillation. This is in the context of a history of myasthenia gravis and diabetes. patient declined recommendation for upper and lower scope by GI Has ongoing nausea-we reviewed all his meds and held some of them Notably with ongoing fatigue, I reviewed outpatient records and he has been on residential metoprolol, so that is less likely contributing Still fatigued, weak and in fact, he is too weak to stand at bedside. Denies any pain Diarrhea still continues, no evidence of blood per rectum Orthostatics checked at bedside and positive when lying to sitting, patient was unable to stand. Review of Systems Review of Systems: All systems reviewed and negative except as indicated in subjective above. Physical Exam Physical Exam: CONSTITUTIONAL: WNWD, vitals as above, generally ill- appearing, NAD EYES: normal conjunctivae, no scleral icterus ENT: external ear and nose normal, MMM NECK: trachea midline RESPIRATORY: clear to auscultation bilaterally, no crackles, rales or wheezes, normal respiratory effort CARDIOVASCULAR: regular rate and rhythm, S1 and 2 heard without murmurs, gallops or rubs, no JVD, trace peripheral edema GASTROINTESTINAL: soft, nontender, ND, no guarding MUSCULOSKELETAL: generalized weakness without gross focal deficits. Head is normocephalic and atraumatic SKIN: warm and dry NEUROLOGIC: CN 2-12 grossly intact, normal cognition, normal speech, no tremor, no gross focal deficits. PSYCHIATRIC: alert cooperative and oriented to person, place and time. Results & Data Results & Data ([facility]) Vital Signs (Past 12 Hours) Vital Signs Temp Pulse Pulse Resp BP Pulse Ox 03/19/21 09:04 36.6 C 78 18 142/65 H 95 03/19/21 07:19 60 03/19/21 02:20 37.2 C 65 18 135/67 94
--- NOTE | 2021-03-19 12:17 | Hospitalist Progress Note ---
Date of Service March 19, 2021 Assessment & Plan (1) Anemia: Plan: Likely multifactorial given excessive phlebotomy, recent illnesses, multiple comorbidities. GI bleed always a possibility but currently he is without overt bleeding. Patient now agreeable to scope which is planned for tomorrow, bridge with Lovenox, hold Eliquis. Plan to restart Eliquis post procedure when okay with GI. Cont to monitor blood counts for now. (2) Paroxysmal A-fib: Plan: cont metoprolol, eliquis, doing well from a cardiac perpective. (3) Lower extremity edema: Plan: Lower extremity edema has resolved, teds as tolerated. (4) History of COVID-19: Plan: 01/2021 s/p remdesivir and dexamethasone, not currently requiring treatment or isolation. (5) History of pulmonary embolism: Plan: Diagnosed in Jan 2021, cont anticoagulation with Eliquis unless acutely bleeding, currently declining scope (6) Myasthenia gravis: Plan: continue Pyridostigmine and azathioprine, no evidence of crisis despite generalized weakness, PT/OT to assess. On further review of his records, he is supposed to be taking 10 mg twice daily of prednisone and has been off this for approximately 1 month because of moving into and out of the hospital. We will add this back again now. Per respiratory, he pulled a NIF x 2 of -40cc. Doing well from a breathing standpoint, no evidence of crisis. (7) DM type 2 (diabetes mellitus, type 2): Plan: last a1c 6.7 12/2020 obtain a1c in a.m. May need to add blood sugar checks with addition of prednisone. Will test daily BMP for now. (8) Hypertension: Plan: BP stable, cont current therapy (9) Diarrhea: Plan: chronic diarrhea, not infectious, ongoing x 3 months. GI recommending colonoscopy which patient has declined. Lomotil PRN. Replace lytes as needed. 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 I spoke with his by phone today and updated her on his progress. Reviewed recent outpatient neurology notes. She confirms that he is supposed to be taking the scheduled prednisone. Zuri Curry DO [facility] Hospitalist Admission and Anticipated Discharge Date Admission Date: March 16, 2021 Subjective 80 yo M presented with weakness in the setting of anemia. Recent prolonged acute illness and hospitalization including Covid hospitalization complicated by pneumonia with pulmonary embolism and paroxysmal atrial fibrillation. This is in the context of a history of myasthenia gravis and diabetes. Patient is now agreeable for upper and lower scope by GI which is planned for tomorrow Pierre is on hold and will bridge with Lovenox Reviewed neurology note from outpatient visit which included prednisone 10 mg p.o. twice daily on his med list. Notably he is not on this year which may be contributing to his weakness and decline. On review of hospital inpatient records and [facility] it appears he has not had this medicine for approximately 1 month. Discussed this with his who states that he has been faithfully taking that prior to going into the hospital. Review of Systems Review of Systems: All systems reviewed and negative except as indicated above. Physical Exam Physical Exam: CONSTITUTIONAL: WNWD, vitals as above, generally ill- appearing, NAD EYES: normal conjunctivae, no scleral icterus ENT: external ear and nose normal, MMM NECK: trachea midline RESPIRATORY: clear to auscultation bilaterally, no crackles, rales or wheezes, normal respiratory effort CARDIOVASCULAR: regular rate and rhythm, S1 and 2 heard without murmurs, gallops or rubs, no JVD, trace peripheral edema GASTROINTESTINAL: soft, nontender, ND, no guarding MUSCULOSKELETAL: generalized weakness without gross focal deficits. Head is normocephalic and atraumatic SKIN: warm and dry NEUROLOGIC: CN 2-12 grossly intact, normal cognition, normal speech, no tremor, no gross focal deficits. PSYCHIATRIC: alert cooperative and oriented to person, place and time. Results & Data Results & Data ([facility]) Vital Signs (Past 12 Hours) Vital Signs Temp Pulse Pulse Resp BP Pulse Ox 03/19/21 09:04 36.6 C 78 18 142/65 H 95 03/19/21 07:19 60 03/19/21 02:20 37.2 C 65 18 135/67 94 Laboratory Results Short CBC 03/19/21 Range/Units 10:57 WBC 3.73 L (4.8-10.8) K/uL Hgb 9.3 L (14.0-18.0) g/dL Hct 29.1 L (42-52) % Plt Count 253 (130-400) K/uL BMP 03/19/21 10:57 Sodium 139 Potassium 3.1 L Chloride 108 H Carbon Dioxide 25 BUN 4 L Creatinine 0.90 Glucose 93 Calcium 7.3 L Medications Administered Current Inpatient Medications Acetaminophen (Acetaminophen 325 Mg Tab) 650 mg PO Q4H PRN PRN Reason: Pain or Fever Stop: 04/15/21 14:51 Al Hydrox/Mg Hydrox/Simethicone (Aluminum/Magnesium Susp 30 Ml Udc) 15 ml PO Q4H PRN PRN Reason: Dyspepsia Stop: 04/15/21 14:51 Apixaban (Apixaban 5 Mg Tablet) 5 mg PO Q12 BOBBI Stop: 04/15/21 20:59 Last Admin: 03/19/21 08:14 Dose: Not Given Documented by: Atorvastatin Calcium (Atorvastatin 10 Mg Tab) 10 mg PO HS BOBBI Stop: 04/15/21 20:59 Last Admin: 03/18/21 20:31 Dose: 10 mg Documented by: Azathioprine (Azathioprine 50 Mg Tab) 100 mg PO DAILY BOBBI Stop: 04/16/21 08:59 Last Admin: 03/19/21 08:11 Dose: 100 mg Documented by: Calcium Carbonate (Calcium Carbonate 1250mg Tab) 1,250 mg PO DAILY BOBBI Stop: 04/16/21 08:59 Last Admin: 03/18/21 09:34 Dose: 1,250 mg Documented by: Citalopram Hydrobromide (Citalopram 40 Mg Tab) 40 mg PO DAILY BOBBI Stop: 04/16/21 08:59 Last Admin: 03/19/21 08:13 Dose: 40 mg Documented by: Dextrose (Dextrose 50% 50 Ml Syringe) 25 - 50 ml IV UD PRN; Protocol PRN Reason: Hypoglycemia Protocol Stop: 04/15/21 14:51 Diphenoxylate HCl/Atropine (Diphenoxylate/Atropine 2.5/0.025mg Tab) 1 tab PO QID PRN PRN Reason: diarrhea Stop: 04/16/21 16:59 Last Admin: 03/19/21 01:30 Dose: 1 tab Documented by: Enoxaparin Sodium (Enoxaparin 1 Mg/Kg) 1 mg SQ Q12H BOBBI Stop: 04/18/21 12:14 Glucagon (Glucagon For Inj 1 Mg Vial) 1 mg SQ UD PRN; Protocol PRN Reason: Hypoglycemia Protocol Stop: 04/15/21 14:51 Glucose (Glucose 10 Tabs/Tube) 4 - 8 tabs PO UD PRN; Protocol PRN Reason: Hypoglycemia Protocol Stop: 04/15/21 14:51 Glucose (Glucose 40% Gel 15 Gm Tube) 15 - 30 gm PO UD PRN; Protocol PRN Reason: Hypoglycemia Protocol Stop: 04/15/21 14:51 Potassium Chloride 40 meq/ (Sodium Chloride) 520 mls @ 125 mls/hr IV .Q4H10M BOBBI Stop: 03/19/21 16:00 Lorazepam (Lorazepam 0.5 Mg Tab) 0.5 mg PO TID PRN PRN Reason: Anxiety Stop: 04/15/21 14:51 Magnesium Hydroxide (Magnesium Hydroxide Susp 30 Ml Udc) 30 ml PO Q12H PRN PRN Reason: Constipation Stop: 04/15/21 14:51 Metoprolol Tartrate (Metoprolol Tartrate 25 Mg Tab) 12.5 mg PO Q12 BOBBI Stop: 04/17/21 09:29 Last Admin: 03/19/21 08:11 Dose: 12.5 mg Documented by: Miscellaneous (Carbohydrates For Hypoglycemia ) 15 - 30 gm PO UD PRN PRN Reason: Hypoglycemia Protocol Stop: 04/15/21 14:51 Ondansetron HCl (Ondansetron Inj 2 Mg/Ml 2 Ml Vial) 4 mg IV Q4H PRN PRN Reason: Nausea Stop: 04/16/21 15:36 Last Admin: 03/18/21 10:09 Dose: 4 mg Documented by: Pantoprazole Sodium (Pantoprazole 40 Mg Tab) 40 mg PO DAILYBB [facility] Stop: 04/16/21 06:29 Last Admin: 03/18/21 06:08 Dose: 40 mg Documented by: Potassium Chloride (Potassium Chloride 20 Meq/15 Ml Udc) 20 meq PO TID BOBBI Stop: 04/16/21 13:59 Promethazine HCl (Promethazine Hcl 25 Mg Tab) 25 mg PO Q6H PRN PRN Reason: Nausea And Vomiting Stop: 04/17/21 12:10 Pyridostigmine [place] (Pyridostigmine [place] 60 Mg Tab) 60 mg PO BID@0800,1230 [facility] Stop: 04/16/21 07:59 Last Admin: 03/19/21 08:13 Dose: 60 mg Documented by: Pyridostigmine [place] (Pyridostigmine [place] 60 Mg Tab) 90 mg PO HS BOBBI Stop: 04/15/21 20:59 Last Admin: 03/18/21 20:32 Dose: 90 mg Documented by: Tamsulosin HCl (Tamsulosin Hcl 0.4 Mg Cap) 0.4 mg PO QDD BOBBI Stop: 04/15/21 16:29 Last Admin: 03/18/21 17:13 Dose: 0.4 mg Documented by:
[2021-03-19] MEDS: ENOXAPARIN INJ 120 MG/0.8 ML SYR SQ SCH ×2 (12:44→23:42)
--- NOTE | 2021-03-19 13:19 | Gastroenterology Progress Note ---
Date of Service March 19, 2021 Assessment & Plan (1) Nausea: Plan: Recommend EGD (2) Chronic diarrhea: Plan: Recommend colonoscopy Plan: We will tentatively plan for EGD and colonoscopy on Wednesday for work-up of chronic anemia as well as chronic diarrhea. Apparently he is also having some dysphagia (mentioned by nursing). Most recent Xarelto was last evening. We will continue to hold. Discussed with primary hospitalist who will arrange bridging (recent PE). Appreciate primary services dressing hypokalemia. We will stop Imodium. Will begin clear liquid diet tomorrow morning. We will prep tomorrow. Admission and Anticipated Discharge Date Admission Date: March 16, 2021 Supervising Physician Co-Signing Physician Notes Attg add: I interviewed and examined pt, reviewed chart and labs. Plan for scopes on Wednesday. Subjective 80 yo M admitted on March 16 for weakness thought secondary to diarrhea, anemia, nausea. Covid in January, with pneumonia, PE, A. fib. Very protracted recovery having been hospitalized or in rehab since that time. Presented with weakness in the setting of anemia. Hb on arrival 8.4+ 2 units RBCs-> 9.3 today BUN is normal. Potassium decreased at 3.1. Patient is awake alert oriented, comfortable. Diarrhea decreased to approximately 2/day with regular scheduled Imodium. However, we were asked, by cardiology (Dr. Toney), to see the patient again as he has agreed to EGD and colonoscopy. Review of Systems Review of Systems: ROS: Eyes: No eye redness, or pain, no recent vision changes Resp: No SOB, no cough Cardio: No palpitations/irregular beats, no chest pain GI: As per HPI, otherwise (-) : Denies pain on urination Skin: No jaundice, itching or new rashes Neuro: decreased lower leg strength since COVID - pt reports unable to walk since January. Physical Exam Constitutional: well developed, + ill appearing (chronically) and cooperative; no acute distress Eyes: PERRL, conjunctivae normal, anicteric sclerae Neck: trachea midline, no thyromegaly Respiratory: normal respiratory effort and able to speak in complete sentences; no respiratory distress, no labored breathing, does not use accessory muscles and no cough Cardiovascular: RRR, no murmur, no edema Gastrointestinal (Abdomen): normal bowel sounds, soft, nontender, no hepatosplenomegaly Inspection/Auscultation: abdomen normal to inspection and normal bowel sounds; abdomen not distended and no abdominal edema Skin: no rashes, warm and dry + pallor Neurologic: PERRL, EOMI, accommodation nl, no face palsy, no dysarthria awake; not confused Psychiatric: A+Ox3, euthymic affect Orientation: alert, oriented x 3 and cooperative Results & Data ([facility]) Vital Signs (Past 12 Hours) Vital Signs Temp Pulse Pulse Resp BP Pulse Ox 03/19/21 09:04 36.6 C 78 18 142/65 H 95 03/19/21 07:19 60 03/19/21 02:20 37.2 C 65 18 135/67 94
[2021-03-19] MEDS: TAMSULOSIN HCL 0.4 MG CAP PO SCH (15:27)
[2021-03-19] MEDS ORDERED: LAVAGE SOLUTION 4000ML PO SCH (17:00)
[2021-03-19] MEDS: ATORVASTATIN 10 MG TAB PO SCH (20:06)
[2021-03-19] MEDS: predniSONE 10 MG TABLET PO SCH (22:32)
[2021-03-19 23:03] LABS: Basophils # (auto) 0.02 K/uL (0-0.2); Basophils % (auto) 0.6 %; Eosinophils # (auto) 0.33 K/uL (0-0.5); Eosinophils % (auto) 9.8 %; Hematocrit (blood only) 26.8 % (42-52); Hemoglobin 8.8 g/dL (14.0-18.0); Immature Granulocytes # (auto) 0.02 K/uL (0.00-0.02); Immature Granulocytes % (auto) 0.6 %; Lymphocytes # (auto) 0.93 K/uL (1.2-3.4); Lymphocytes % (auto) 27.5 %; Mean Corpuscular Hemoglobin 30.1 pg (25-34); Mean Corpuscular Hgb Conc 32.8 g/dL (32-36); Mean Corpuscular Volume 91.8 fL (80-100); Mean Platelet Volume 10.2 fL (7.4-10.4); Monocytes # (auto) 0.06 K/uL (0.11-0.59); Monocytes % (auto) 1.8 %; Neutrophils # (auto) 2.02 K/uL (1.4-6.5); Neutrophils % (auto) 59.7 %; Platelet Count 240 K/uL (130-400); RDW Coefficient of Variation 16.4 % (11.5-14.5); RDW Standard Deviation 53.3 fL (36.4-46.3); Red Blood Count 2.92 M/uL (4.7-6.1); White Blood Count 3.38 K/uL (4.8-10.8)
--- NOTE | 2021-03-19 23:23 | Communication Note ---
Date of Service: March 19, 2021 Patient with epistaxis episode. No headache complaints as per RN. CBC now hold Lovenox for now.
[2021-03-20] MEDS: predniSONE 10 MG TABLET PO SCH ×2 (07:24→21:26)
[2021-03-20] MEDS: METOPROLOL TARTRATE 25 MG TAB PO SCH ×2 (07:25→21:24)
[2021-03-20] MEDS: azaTHIOprine 50 MG TAB PO SCH (07:25)
[2021-03-20] MEDS: CITALOPRAM 40 MG TAB PO SCH (07:27)
[2021-03-20] MEDS: PYRIDOSTIGMINE BROMIDE 60 MG TAB PO SCH ×3 (07:27→21:23)
[2021-03-20 07:28] LABS: Hematocrit (blood only) 27.3 % (42-52); Hemoglobin 8.9 g/dL (14.0-18.0); Mean Corpuscular Hemoglobin 29.8 pg (25-34); Mean Corpuscular Hgb Conc 32.6 g/dL (32-36); Mean Corpuscular Volume 91.3 fL (80-100); Nucleated RBC # (auto) 0.05 K/uL (0-0); Nucleated RBC % (auto) 1.4 %; Platelet Count 233 K/uL (130-400); RDW Coefficient of Variation 16.4 % (11.5-14.5); RDW Standard Deviation 53.7 fL (36.4-46.3); Red Blood Count 2.99 M/uL (4.7-6.1); White Blood Count 3.34 K/uL (4.8-10.8)
[2021-03-20 07:56] LABS: BUN Creatinine Ratio 3.6 (10-20); Creatinine Clr Calc Pharmacy 100.2 ml/min; Est GFR (African American) 100.3 ml/min; Est GFR (Non-African American) 86.5 ml/min; Magnesium 1.4 mg/dl (1.8-2.4); Potassium 3.2 mmol/L (3.5-5.1)
--- NOTE | 2021-03-20 08:38 | Electrocardiogram Report ---
Test Reason : Blood Pressure : / mmHG Vent. Rate : 082 BPM Atrial Rate : 082 BPM P-R Int : 112 ms QRS Dur : 130 ms QT Int : 432 ms P-R-T Axes : 010 -71 061 degrees QTc Int : 504 ms Sinus rhythm with Premature supraventricular complexes Left axis deviation Right bundle branch block Abnormal ECG When compared with ECG of 16-MAR-2021 16:25, No significant change was found Confirmed by Onesimo Morejon ([id number]) on 03/20/2021 8:38:22 AM Referred By: [facility] Confirmed By:Onesimo Morejon
[2021-03-20] MEDS ORDERED: [UNRECOGNIZED DRUG - OTHER] IV SCH (09:30)
[2021-03-20] MEDS ORDERED: MAGNESIUM SULFATE IV SCH (09:30)
[2021-03-20] MEDS ORDERED: POTASSIUM CHLORIDE IV SCH (09:30)
--- NOTE | 2021-03-20 09:55 | Cardiology Progress Note ---
Date of Service March 20, 2021 Assessment & Plan (1) Paroxysmal A-fib: (2) History of pulmonary embolism: (3) COVID-19 virus infection: (4) Hypertension: (5) Acute renal failure due to tubular necrosis: (6) Critical illness myopathy: (7) Chronic diarrhea: (8) Nausea: (9) Anemia: Plan: now in sinus with frequent ectopy continue metoprolol to 12.5 mg p.o. twice daily Eliquis anticoagulation held for procedures, restart afterwards continue metoprolol for rate control Admission and Anticipated Discharge Date Admission Date: March 16, 2021 Subjective Pt seen and examined, chart reviewed. No complaints overnight. For EGD today. Review of Systems Review of Systems: All systems reviewed & are unremarkable except as noted in HPI & below Physical Exam Physical Exam: General: Awake, alert and oriented x 3. No acute distress. HEENT: Normocephalic, atraumatic. Pupils equal, round and reactive to light and accommodation. Extraocular muscles are intact. Anicteric sclera. Moist mucous membranes. Neck: No JVD. No bruit. Cardiovascular: irregularly irregular, unable to appreciate murmur, rub or gallop. Pulmonary: Clear to auscultation bilaterally. No rales, rhonchi, or wheezing. Abdomen: Bowel sounds x 4, soft. No rebound, guarding or tenderness. No organomegaly. Extremities: No clubbing, cyanosis or edema. +2 pedal pulses bilaterally. Skin: Warm and dry. Results & Data ([facility]) Vital Signs (Past 12 Hours) Vital Signs Temp Pulse Pulse Resp BP BP Pulse Ox 03/20/21 08:13 37.0 C 80 18 154/78 H 94 03/20/21 07:15 45 L 03/20/21 04:01 36.7 C 86 18 131/74 94 03/19/21 23:27 36.9 C 67 18 112/66 96 (1) Anemia Anemia type: unspecified type Qualified Code(s): D64.9 - Anemia, unspecified
--- NOTE | 2021-03-20 12:22 | Gastroenterology Progress Note ---
Date of Service March 20, 2021 Assessment & Plan (1) Nausea: Plan: Previously on prednisone, had been held as outpt -- possible [place]'s. DDX includes thrush, acid-peptic disease, med related, COVID related gastroparesis. EGD today, further recommendations to follow endosocpy (2) Chronic diarrhea: Plan: Pt reports chronic diarrhea, due to Mestinon that has worsened recently -- of note, his mestinon doses have fluctuated recently, due to ARF/renal dosing. DDX includes diarrhea due to recent mult courses of abx; micro colitis, concurrent prendisone therapy seems to make this unlikely. Recommend eventual colonoscopy. Timing to be determined. (3) Anemia: Plan: He has a hypoproliferative anemia, with markedly increased ferritin and recent drop in hgb without overt GI blood loss. Admission and Anticipated Discharge Date Admission Date: March 16, 2021 Supervising Physician Co-Signing Physician Notes Attg addendum: I interviewed and examined pt, reviewed chart and labs. Pt without acute complaint today. I suspect that his diarrhea is Mestinon related, possibly due to decreased clearance of drug related to recent ARF. Cause of anemia is likely med related, from [place]; anemia of chronic disease, as suggested by increased ferritin; daily phlebotomy. It is possible that GI blood loss, from acid-peptic disease or stress ulceration may contribute to anemia as well. Will plan EGD + cscopy to look for GIB as cause of anemia and micro colitis as cause of diarrhea. Subjective 80 yo M admitted on 03/16 for weakness thought secondary to diarrhea, anemia, nausea. Covid in January, with pneumonia, PE, A. fib. and has had diarrhea since that time. Some dysphagia as well. Hb on arrival 7.2 + 2 units RBCs-> approx 9. BUN is normal. Potassium decreased at 3.1. Only took about 8oz of the colonoscopy prep "too nauseated by the prep." Pt seen and examined, chart reviewed. No complaints overnight. For EGD today. Review of Systems Review of Systems: ROS: Gen: weakness; no fevers/chills/sweates Eyes: No eye redness, or pain, no recent vision changes Resp: No SOB, no cough Cardio: No palpitations/irregular beats, no chest pain GI: As per HPI, otherwise (-) : Denies pain on urination Skin: No jaundice, itching or new rashes Neuro: decreased lower leg strength since COV - pt reports unable to walk since January. Physical Exam Constitutional: well developed, + ill appearing (chronically) and cooperative; no acute distress Eyes: PERRL, conjunctivae normal, anicteric sclerae Neck: trachea midline, no thyromegaly Respiratory: normal respiratory effort and able to speak in complete sentences; no respiratory distress, no labored breathing, does not use accessory muscles and no cough Cardiovascular: RRR, no murmur, no edema Gastrointestinal (Abdomen): normal bowel sounds, soft, nontender, no hepatosplenomegaly Inspection/Auscultation: abdomen normal to inspection and normal bowel sounds; abdomen not distended and no abdominal edema Skin: no rashes, warm and dry + pallor Neurologic: PERRL, EOMI, accommodation nl, no face palsy, no dysarthria awake; not confused Psychiatric: A+Ox3, euthymic affect Orientation: alert, oriented x 3 and cooperative Results & Data ([facility]) Vital Signs (Past 12 Hours) Vital Signs Temp Pulse Pulse Resp BP BP Pulse Ox 03/20/21 08:13 37.0 C 80 18 154/78 H 94 03/20/21 07:15 45 L 03/20/21 04:01 36.7 C 86 18 131/74 94 Laboratory Results WBC 3.3, Hb 8.9, HCT 25, PLT is 233, NA 144, K3.2, CL 112, CO2 24, BUN 3, CR 0.7, glucose 85 Diagnostic Findings CTAP with IV contrast 03/16/2021:No acute intra-abdominal abnormalities. Soft tissue stranding is seen in the bilateral posterolateral soft tissues, correlation with physical exam is recommended.
[2021-03-20] MEDS ORDERED: POLYETHYLENE (MIRALAX) 17 GM PACK PO ONE (13:41)
[2021-03-20] MEDS ORDERED: METOCLOPRAMIDE HCL INJ 5 MG/ML 2 ML VIAL IV ONE (13:45)
[2021-03-20] MEDS ORDERED: bisacodyL 5 MG TABEC PO ONE (13:58)
--- NOTE | 2021-03-20 14:02 | Communication Note ---
Date of Service: March 20, 2021 Unable to complete colonoscopy because pt not able to take prep due to nausea. GI unit was not able to accomodate EGD today - this was cancelled in later afternoon. Spoke with pt who is willing to try a colonoscopy prep again - if Gatorade (ordered). Will pre-med with metoclopramide. Plan for EGD and colonoscopy tomorrow by Dr. Reyes.
[2021-03-20] MEDS ORDERED: ENOXAPARIN INJ 120 MG/0.8 ML SYR SQ STA (14:30)
[2021-03-20] MEDS: TAMSULOSIN HCL 0.4 MG CAP PO SCH (15:49)
--- NOTE | 2021-03-20 19:28 | Hospitalist Progress Note ---
Date of Service March 20, 2021 Assessment & Plan (1) Anemia: Plan: Likely multifactorial given excessive phlebotomy, recent illnesses, multiple comorbidities. GI bleed always a possibility but currently he is without overt bleeding. Patient now agreeable to scope which is planned for tomorrow, after rescheduling today. Continue to hold Eliquis. Overnight dose of Lovenox was held secondary to epistaxis which is now resolved. H&H is stable. Give 1 more dose of Lovenox now continue bridging in setting of PE within 3 months. (2) Epistaxis: Plan: Spontaneous overnight while on Lovenox therapy. Eliquis is held. Lovenox dose was held overnight. Give additional dose today as epistaxis has resolved H&H is stable. (3) Paroxysmal A-fib: Plan: cont metoprolol, eliquis on hold as above doing well from a cardiac perspective. (4) Lower extremity edema: Plan: Lower extremity edema has resolved, teds as tolerated. (5) History of COVID-19: Plan: 01/2021 s/p remdesivir and dexamethasone, not currently requiring treatment or isolation. (6) History of pulmonary embolism: Plan: Diagnosed in Jan 2021, cont anticoagulation. Lovenox bridge to Eliquis post procedure. As above (7) Myasthenia gravis: Plan: continue Pyridostigmine and azathioprine, no evidence of crisis despite generalized weakness, PT/OT to assess. On further review of his records, he is supposed to be taking 10 mg twice daily of prednisone and has been off this for approximately 1 month because of moving into and out of the hospital. No evidence of myasthenia crisis, continue prednisone twice daily. (8) DM type 2 (diabetes mellitus, type 2): Plan: last a1c 6.7 12/2020 obtain a1c in a.m. May need to add blood sugar checks with addition of prednisone. Will test daily BMP for now. (9) Hypertension: Plan: BP stable, cont current therapy (10) Diarrhea: Plan: chronic diarrhea, not infectious, ongoing x 3 months. GI recommending colonoscopy which patient has declined. Lomotil PRN. Replace lytes as needed. (11) Hypokalemia: Plan: Likely related to chronic diarrhea. Replaced. Recheck in a.m. 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 Zuri Curry DO [facility] Hospitalist Admission and Anticipated Discharge Date Admission Date: March 16, 2021 Subjective 80 yo M presented with weakness in the setting of anemia. Recent prolonged acute illness and hospitalization including Covid hospitalization complicated by pneumonia with pulmonary embolism and paroxysmal atrial fibrillation. This is in the context of a history of myasthenia gravis and diabetes. Nausea persisted overnight and patient was unable to complete the prep. EGD and colonoscopy have been put on hold. EGD planned for tomorrow. Patient is also being bridged with Lovenox and had an episode of epistaxis overnight. Will give additional Lovenox now as H&H is stable and epistaxis has stopped. Goal be to attempt bridging to procedure tomorrow. We will plan to restart Eliquis afterwards. Prednisone was restarted last night. Patient overall continues to feel weak. Review of Systems Review of Systems: All systems reviewed and negative except as indicated above. Physical Exam Physical Exam: CONSTITUTIONAL: WNWD, vitals as above, generally ill- appearing, NAD EYES: normal conjunctivae, no scleral icterus ENT: external ear and nose normal, MMM NECK: trachea midline RESPIRATORY: clear to auscultation bilaterally, no crackles, rales or wheezes, normal respiratory effort CARDIOVASCULAR: regular rate and rhythm, S1 and 2 heard without murmurs, gallops or rubs, no JVD, trace peripheral edema GASTROINTESTINAL: soft, nontender, ND, no guarding MUSCULOSKELETAL: generalized weakness without gross focal deficits. Head is normocephalic and atraumatic SKIN: warm and dry NEUROLOGIC: CN 2-12 grossly intact, normal cognition, normal speech, no tremor, no gross focal deficits. PSYCHIATRIC: alert cooperative and oriented to person, place and time. Results & Data Results & Data ([facility]) Vital Signs (Past 12 Hours) Vital Signs Temp Pulse Pulse Resp BP Pulse Ox 03/20/21 15:22 64 03/20/21 11:39 36.7 C 62 19 139/80 94 03/20/21 08:13 37.0 C 80 18 154/78 H 94 Laboratory Results Short CBC 03/19/21 03/20/21 Range/Units 22:26 07:14 WBC 3.38 L 3.34 L (4.8-10.8) K/uL Hgb 8.8 L 8.9 L (14.0-18.0) g/dL Hct 26.8 L 27.3 L (42-52) % Plt Count 240 233 (130-400) K/uL [facility] 03/20/21 07:14 Sodium 144 Potassium 3.2 L Chloride 112 H Carbon Dioxide 24 BUN 3 L Creatinine 0.74 Glucose 85 Calcium 7.0 L Medications Administered Current Inpatient Medications Acetaminophen (Acetaminophen 325 Mg Tab) 650 mg PO Q4H PRN PRN Reason: Pain or Fever Stop: 04/15/21 14:51 Al Hydrox/Mg Hydrox/Simethicone (Aluminum/Magnesium Susp 30 Ml Udc) 15 ml PO Q4H PRN PRN Reason: Dyspepsia Stop: 04/15/21 14:51 Apixaban (Apixaban 5 Mg Tablet) 5 mg PO Q12 BOBBI Stop: 04/15/21 20:59 Last Admin: 03/19/21 08:14 Dose: Not Given Documented by: Atorvastatin Calcium (Atorvastatin 10 Mg Tab) 10 mg PO HS BOBBI Stop: 04/15/21 20:59 Last Admin: 03/19/21 20:06 Dose: 10 mg Documented by: Azathioprine (Azathioprine 50 Mg Tab) 100 mg PO DAILY BOBBI Stop: 04/16/21 08:59 Last Admin: 03/20/21 07:25 Dose: 100 mg Documented by: Calcium Carbonate (Calcium Carbonate 1250mg Tab) 1,250 mg PO DAILY BOBBI Stop: 04/16/21 08:59 Last Admin: 03/18/21 09:34 Dose: 1,250 mg Documented by: Citalopram Hydrobromide (Citalopram 40 Mg Tab) 40 mg PO DAILY BOBBI Stop: 04/16/21 08:59 Last Admin: 03/20/21 07:27 Dose: 40 mg Documented by: Dextrose (Dextrose 50% 50 Ml Syringe) 25 - 50 ml IV UD PRN; Protocol PRN Reason: Hypoglycemia Protocol Stop: 04/15/21 14:51 Glucagon (Glucagon For Inj 1 Mg Vial) 1 mg SQ UD PRN; Protocol PRN Reason: Hypoglycemia Protocol Stop: 04/15/21 14:51 Glucose (Glucose 10 Tabs/Tube) 4 - 8 tabs PO UD PRN; Protocol PRN Reason: Hypoglycemia Protocol Stop: 04/15/21 14:51 Glucose (Glucose 40% Gel 15 Gm Tube) 15 - 30 gm PO UD PRN; Protocol PRN Reason: Hypoglycemia Protocol Stop: 04/15/21 14:51 Lorazepam (Lorazepam 0.5 Mg Tab) 0.5 mg PO TID PRN PRN Reason: Anxiety Stop: 04/15/21 14:51 Magnesium Hydroxide (Magnesium Hydroxide Susp 30 Ml Udc) 30 ml PO Q12H PRN PRN Reason: Constipation Stop: 04/15/21 14:51 Metoprolol Tartrate (Metoprolol Tartrate 25 Mg Tab) 12.5 mg PO Q12 BOBBI Stop: 04/17/21 09:29 Last Admin: 03/20/21 07:25 Dose: 12.5 mg Documented by: Miscellaneous (Carbohydrates For Hypoglycemia ) 15 - 30 gm PO UD PRN PRN Reason: Hypoglycemia Protocol Stop: 04/15/21 14:51 Ondansetron HCl (Ondansetron Inj 2 Mg/Ml 2 Ml Vial) 4 mg IV Q4H PRN PRN Reason: Nausea Stop: 04/16/21 15:36 Last Admin: 03/18/21 10:09 Dose: 4 mg Documented by: Pantoprazole Sodium (Pantoprazole 40 Mg Tab) 40 mg PO DAILYBB [facility] Stop: 04/16/21 06:29 Last Admin: 03/18/21 06:08 Dose: 40 mg Documented by: Potassium Chloride (Potassium Chloride 20 Meq/15 Ml Udc) 20 meq PO TID BOBBI Stop: 04/16/21 13:59 Prednisone (Prednisone 10 Mg Tablet) 10 mg PO BID BOBBI Stop: 04/18/21 20:59 Last Admin: 03/20/21 07:24 Dose: 10 mg Documented by: Promethazine HCl (Promethazine Hcl 25 Mg Tab) 25 mg PO Q6H PRN PRN Reason: Nausea And Vomiting Stop: 04/17/21 12:10 Pyridostigmine [place] (Pyridostigmine [place] 60 Mg Tab) 60 mg PO BID@0800,1230 BOBBI Stop: 04/16/21 07:59 Last Admin: 03/20/21 11:06 Dose: 60 mg Documented by: Pyridostigmine [place] (Pyridostigmine [place] 60 Mg Tab) 90 mg PO HS BOBBI Stop: 04/15/21 20:59 Last Admin: 03/19/21 20:07 Dose: 90 mg Documented by: Tamsulosin HCl (Tamsulosin Hcl 0.4 Mg Cap) 0.4 mg PO QDD BOBBI Stop: 04/15/21 16:29 Last Admin: 03/20/21 15:49 Dose: 0.4 mg Documented by:
[2021-03-20] MEDS: ATORVASTATIN 10 MG TAB PO SCH (21:26)
[2021-03-21 08:21] LABS: Hematocrit (blood only) 26.5 % (42-52); Hemoglobin 8.7 g/dL (14.0-18.0); Mean Corpuscular Hemoglobin 29.9 pg (25-34); Mean Corpuscular Hgb Conc 32.8 g/dL (32-36); Mean Corpuscular Volume 91.1 fL (80-100); Mean Platelet Volume 9.8 fL (7.4-10.4); Platelet Count 227 K/uL (130-400); RDW Coefficient of Variation 16.1 % (11.5-14.5); RDW Standard Deviation 52.8 fL (36.4-46.3); Red Blood Count 2.91 M/uL (4.7-6.1); White Blood Count 2.75 K/uL (4.8-10.8)
[2021-03-21 08:58] LABS: BUN Creatinine Ratio 5.8 (10-20); Calcium 7.2 mg/dl (8.5-10.1); Creatinine Clr Calc Pharmacy 121.2 ml/min; Est GFR (African American) 108.6 ml/min; Est GFR (Non-African American) 93.7 ml/min; Potassium 3.5 mmol/L (3.5-5.1)
[2021-03-21] MEDS: predniSONE 10 MG TABLET PO SCH ×2 (09:37→21:34)
[2021-03-21] MEDS: CITALOPRAM 40 MG TAB PO SCH (09:38)
[2021-03-21] MEDS: METOPROLOL TARTRATE 25 MG TAB PO SCH ×2 (09:38→21:32)
[2021-03-21] MEDS: PYRIDOSTIGMINE BROMIDE 60 MG TAB PO SCH ×3 (09:38→21:33)
[2021-03-21] MEDS: azaTHIOprine 50 MG TAB PO SCH (09:38)
--- NOTE | 2021-03-21 11:00 | Gastroenterology Progress Note ---
Date of Service March 21, 2021 Assessment & Plan (1) Nausea: Plan: Previously on prednisone, had been held as outpt -- possible Socorro's. DDX includes thrush, acid-peptic disease, med related, COVID related gastroparesis. EGD today, further recommendations to follow endosocpy (2) Chronic diarrhea: Plan: Pt reports chronic diarrhea, due to Mestinon that has worsened recently -- of note, his mestinon doses have fluctuated recently, due to ARF/renal dosing. DDX includes diarrhea due to recent mult courses of abx; micro colitis, concurrent prendisone therapy seems to make this unlikely. Colonoscopy today. Further recommendations to follow. (3) Anemia: Plan: He has a hypoproliferative anemia, with markedly increased ferritin and recent drop in hgb without overt GI blood loss. Admission and Anticipated Discharge Date Admission Date: March 16, 2021 Supervising Physician Co-Signing Physician Notes I performed a history and physical examination of the patient today, including specifically on physical exam - soft abdomen. I have discussed the patient's management with the advanced practitioner. Please refer to the nurse practitioner's note for the documented findings and plan of care. EGD and colonoscopy today Patient was explained in detail regarding risks, benefits, limitations and alternatives of the above endoscopic procedure. Risks of intravenous sedation used for procedure were also explained. Risks include, but not limited to perforation, bleeding, infection, respiratory distress, cardiac arrest and . Patient is also aware about the possibility of missed lesion. Patient's questions were answered. The patient verbalized understanding the information and agreed to undergo the procedure. Subjective 80 yo M with MG on mestinon, admitted on 03/16 for weakness thought secondary to diarrhea, anemia, nausea. Covid in January, with pneumonia, PE, A. fib on Eliquis (bridged with Lovenox) Diarrhea since COVID in January, some dysphagia as well. Anemia: Hb on arrival 7.2 + 2 units RBCs-> approx 9. BUN is normal. Potassium decreased at 3.1. Completed a Gatoraid/Miralax prep with multiple liquid brown BMs. Pt seen and examined, chart reviewed. No complaints overnight. For EGD/Colonoscopy today. Review of Systems Review of Systems: ROS: Gen: + weakness; no fevers/chills/sweates Eyes: No eye redness, or pain, no recent vision changes Resp: No SOB, no cough Cardio: No palpitations/irregular beats, no chest pain GI: As per HPI, otherwise (-) : Denies pain on urination Skin: No jaundice, itching or new rashes Neuro: decreased lower leg strength since - pt reports unable to walk since January. Physical Exam Constitutional: well developed, + ill appearing (chronically) and cooperative; no acute distress Eyes: PERRL, conjunctivae normal, anicteric sclerae Neck: trachea midline, no thyromegaly Respiratory: normal respiratory effort and able to speak in complete sentences; no respiratory distress, no labored breathing, does not use accessory muscles and no cough Cardiovascular: RRR, no murmur, no edema Gastrointestinal (Abdomen): normal bowel sounds, soft, nontender, no hepatosplenomegaly Inspection/Auscultation: abdomen normal to inspection and normal bowel sounds; abdomen not distended and no abdominal edema Skin: no rashes, warm and dry + pallor Neurologic: PERRL, EOMI, accommodation nl, no face palsy, no dysarthria awake; not confused Psychiatric: A+Ox3, euthymic affect Orientation: alert, oriented x 3 and cooperative Results & Data ([facility]) Vital Signs (Past 12 Hours) Vital Signs Temp Pulse Resp BP Pulse Ox 03/21/21 07:45 36.4 C L 57 L 18 122/67 96 03/21/21 04:00 36.6 C 72 18 135/75 96 03/20/21 23:15 36.6 C 69 18 126/71 95 Laboratory Results WBC 2.75, Hb 8.7, Hct 26.5, Plts 227, Na 142, K 3.4, Cl 12, BUN 0.6, glucose 115 Stool of C-diff and culture (-). Diagnostic Findings CTAP w IV contrast on 03/21/21: No acute intra-abdominal abnormalities. Soft tissue stranding is seen in the bilateral posterolateral soft tissues, correlation with physical exam is recommended.
--- NOTE | 2021-03-21 12:08 | Cardiology Progress Note ---
Date of Service March 21, 2021 Assessment & Plan (1) Paroxysmal A-fib: (2) History of pulmonary embolism: (3) COVID-19 virus infection: (4) Hypertension: (5) Acute renal failure due to tubular necrosis: (6) Critical illness myopathy: (7) Chronic diarrhea: (8) Nausea: (9) Anemia: Plan: now in sinus with frequent ectopy continue metoprolol to 12.5 mg p.o. twice daily Eliquis anticoagulation held for procedures, restart afterwards continue metoprolol for rate control Admission and Anticipated Discharge Date Admission Date: March 16, 2021 Physical Exam Physical Exam: General: Awake, alert and oriented x 3. No acute distress. HEENT: Normocephalic, atraumatic. Pupils equal, round and reactive to light and accommodation. Extraocular muscles are intact. Anicteric sclera. Moist mucous membranes. Neck: No JVD. No bruit. Cardiovascular: irregularly irregular, unable to appreciate murmur, rub or gallop. Pulmonary: Clear to auscultation bilaterally. No rales, rhonchi, or wheezing. Abdomen: Bowel sounds x 4, soft. No rebound, guarding or tenderness. No organomegaly. Extremities: No clubbing, cyanosis or edema. +2 pedal pulses bilaterally. Skin: Warm and dry. Results & Data ([facility]) Vital Signs (Past 12 Hours) Vital Signs Temp Pulse Pulse Resp BP Pulse Ox 03/21/21 07:45 36.4 C L 57 L 18 122/67 96 03/21/21 07:00 41 L 03/21/21 04:00 36.6 C 72 18 135/75 96 (1) Anemia Anemia type: unspecified type Qualified Code(s): D64.9 - Anemia, unspecified
--- NOTE | 2021-03-21 12:41 | Anesthesiology Consultation ---
Date of Service March 21, 2021 Assessment & Plan ASA ASA3 Proposed Anesthesia Anesthesia Type: MAC Risk / Benefits Reviewed With: PT / POA / Parent / Guardian, Accepts Plan and Informed Consent Obtained History Surgery Operation Date: 03/20/21 16:45 Proposed Procedures p Esophagogastroduodenoscopy Dr Kenney - Francisco Champagne MD Operation Date: 03/21/21 16:30 Proposed Procedures p Colonoscopy EGD Dr. Reyes - Jose Enrique Reyes MD Height/Weight Height: 6 ft Weight: 100 kg Allergies Allergy/AdvReac Type Severity Reaction Status Date / Time onion Allergy Unknown Verified 03/21/21 12:26 pork derived (porcine) Allergy Unknown Verified 03/21/21 12:26 lactose AdvReac Unknown Nausea Verified 03/21/21 12:26 Medications Home Medications Medication Instructions Recorded Confirmed Last Taken acetaminophen 325 mg tablet 650 mg PO Q4H PRN 02/16/21 03/16/21 Unknown (Tylenol) apixaban 5 mg tablet (Eliquis) 5 mg PO Q12 02/16/21 03/16/21 Unknown ascorbic acid (vitamin C) 1,000 mg 1,000 mg PO DAILY 02/16/21 03/16/21 Unknown tablet,extended release atorvastatin 10 mg tablet (Lipitor) 10 mg PO HS 02/16/21 03/16/21 Unknown azathioprine 50 mg tablet (Imuran) 100 mg PO DAILY 02/16/21 03/16/21 Unknown benzonatate 100 mg capsule 100 mg PO TID PRN 02/16/21 03/16/21 Unknown (Tessalon Perles) calcium carbonate 500 mg (1,250 1 tab PO DAILY 02/16/21 03/16/21 Unknown mg)-vitamin D3 200 unit tablet (Calcium 500 + D) citalopram 40 mg tablet (Celexa) 40 mg PO DAILY 02/16/21 03/16/21 Unknown diphenoxylate-atropine 2.5 1 tab PO QID PRN 02/16/21 03/16/21 Unknown mg-0.025 mg tablet (Lomotil) docusate sodium 100 mg capsule 100 mg PO BID 02/16/21 03/16/21 Unknown metoprolol tartrate 25 mg tablet 25 mg PO Q12H 02/16/21 03/16/21 Unknown ondansetron HCl 4 mg tablet 4 mg PO Q8H PRN 02/16/21 03/16/21 Unknown (Zofran) pantoprazole 40 mg tablet,delayed 40 mg PO DAILYBB 02/16/21 03/16/21 Unknown release (Protonix) pyridostigmine bromide 60 mg 60 mg PO BIDM 02/16/21 03/16/21 Unknown tablet (Mestinon) tamsulosin 0.4 mg capsule (Flomax) 0.4 mg PO QDD 02/16/21 03/16/21 Unknown zinc sulfate 50 mg zinc (220 mg) 50 mg PO DAILY 02/16/21 03/16/21 Unknown capsule (Zinc-220) lorazepam 0.5 mg tablet 0.5 mg PO TID PRN 03/16/21 03/16/21 Unknown magnesium oxide 400 mg PO BID 03/16/21 03/16/21 Unknown potassium chloride 20 mEq 20 meq PO TID 03/16/21 03/16/21 Unknown tablet,extended release pyridostigmine bromide 60 mg tablet 90 mg PO HS 03/16/21 03/16/21 Unknown prednisone 10 mg tablet 10 mg PO BID 03/19/21 03/19/21 Unknown Active Medications Generic Name Dose Route Start Last Admin Trade Name Freq PRN Reason Stop Dose Admin Acetaminophen 650 mg 03/16/21 14:52 03/21/21 01:13 Acetaminophen 325 Mg Tab PO 04/15/21 14:51 650 mg Q4H PRN Administration Pain or Fever Apixaban 5 mg 03/16/21 21:00 03/19/21 08:14 Apixaban 5 Mg Tablet PO 04/15/21 20:59 Not Given Q12 BOBBI Atorvastatin Calcium 10 mg 03/16/21 21:00 03/20/21 21:26 Atorvastatin 10 Mg Tab PO 04/15/21 20:59 10 mg HS BOBBI Administration Azathioprine 100 mg 03/17/21 09:00 03/21/21 09:38 Azathioprine 50 Mg Tab PO 04/16/21 08:59 100 mg DAILY BOBBI Administration Citalopram Hydrobromide 40 mg 03/17/21 09:00 03/21/21 09:38 Citalopram 40 Mg Tab PO 04/16/21 08:59 40 mg DAILY BOBBI Administration Metoprolol Tartrate 12.5 mg 03/18/21 09:30 03/21/21 09:38 Metoprolol Tartrate 25 Mg Tab PO 04/17/21 09:29 Not Given Q12 BOBBI Ondansetron HCl 4 mg 03/17/21 15:37 03/18/21 10:09 Ondansetron Inj 2 Mg/Ml 2 Ml Vial IV 04/16/21 15:36 4 mg Q4H PRN Administration Nausea Prednisone 10 mg 03/19/21 21:00 03/21/21 09:37 Prednisone 10 Mg Tablet PO 04/18/21 20:59 10 mg BID BOBBI Administration Pyridostigmine [place] 60 mg 03/17/21 08:00 03/21/21 09:38 Pyridostigmine [place] 60 Mg Tab PO 04/16/21 07:59 60 mg BID@0800,1230 BOBBI Administration Pyridostigmine [place] 90 mg 03/16/21 21:00 03/20/21 21:23 Pyridostigmine [place] 60 Mg Tab PO 04/15/21 20:59 90 mg HS BOBBI Administration Tamsulosin HCl 0.4 mg 03/16/21 16:30 03/20/21 15:49 Tamsulosin Hcl 0.4 Mg Cap PO 04/15/21 16:29 0.4 mg QDD BOBBI Administration NPO Date Last Intake of Fluids: 03/21/21 Time Last Intake of Fluids: 08:00 Last Intake of Fluids Comment: sip with pills Date Last Intake of Solids: 03/18/21 Time Last Intake of Solids: 18:00 Past Medical History Medical History COVID-19 virus infection DM type 2 (diabetes mellitus, type 2) Dyslipidemia History of pulmonary embolism Hypertension Myasthenia gravis Osteoarthritis Paroxysmal A-fib Exercise / Class Metabolic Activity II 4-5 Yardwork/Stairs/Walk up hill Past Family History Family History Father Cancer Past Surgical History Surgical History History of hernia repair x3 S/P AAA repair Past Anesthesia History No Hx of Anesthesia Complications and No Family Hx of Anesthesia Complications History of PONV No Hx of PONV and No Hx of Motion Sickness Social History Smoking Status: Former smoker tobacco type: cigarettes Smoking cigarettes per day: 1 pack Hx Alcohol Use: No Hx Substance Use: No Review of Systems denies fever/cough/ colds/ chest pain/ SOB/ CATRACHO denies CATRACHO Physical Exam Vital Signs Last Vital Signs Temp 36.4 C L 03/21/21 07:45 Pulse 57 L 03/21/21 07:45 Resp 18 03/21/21 07:45 BP 122/67 03/21/21 07:45 Pulse Ox 96 03/21/21 07:45 ENMT Mouth: + poor dentition (few teeth left); no TMJ abnormality and no dentition abnormality Thyromental Distance: > or= 3.5 Finger Breadths Mallampati Class: II Neck neck extension not limited Respiratory normal respiratory effort; no respiratory distress Auscultation: lungs clear to auscultation bilaterally Cardiovascular Rate/Rhythm: regular rate and regular rhythm Neurologic moves all extremities Psychiatric Orientation: alert and oriented x 3 Testing Laboratory Results 03/21/21 08:05 03/21/21 08:05 PT 13.0 Seconds (9.0-12.0) H 03/16/21 11:19 INR 1.3 (0.9-1.1) H 03/16/21 11:19 APTT 31.6 Seconds (21.0-31.0) H 03/16/21 11:19 Hemoglobin A1c 7.1 % (4.5-5.6) H 03/17/21 06:48 Blood Type O Positive 03/16/21 11:19 Antibody Screen NEGATIVE 03/16/21 11:19 03/18/21 18:00 Escherichia coli Shiga Toxins Test - Final Stool Stool Culture - Final No Salmonella isolated, No Shigella isolated, No Campylobacter jejuni isolated. 03/21/21 03/21/21 11:39 07:31 POC Glucose 118 H 134 H
[2021-03-21] MEDS ORDERED: LIDOCAINE 2% 2 ML VIAL/AMP(20MG/ML) INFIL ONE (13:26)
[2021-03-21] MEDS ORDERED: PROPOFOL IV EMULSION 10 MG/ML 20 ML VIAL IV ONE (13:26)
--- NOTE | 2021-03-21 13:43 | GI REPORT ---
Patient Name: Milan Wild Procedure Date: 03/21/2021 12:39 PM Date of : 1940 Admit Type: Inpatient Age: 80 Gender: Male Attending MD: Jose Enrique Reyes MD Procedure: Upper GI endoscopy Providers: Jose Enrique Reyes MD Referring MD: Zuri Curry Do Indications: Anemia Medicines: Propofol per Anesthesia Complications: No immediate complications. Estimated Blood Loss: Estimated blood loss: none. Procedure: Pre-Anesthesia Assessment: - Prior to the procedure, a History and Physical was performed, and patient medications, allergies and sensitivities were reviewed. The patient's tolerance of previous anesthesia was reviewed. - The risks and benefits of the procedure and the sedation options and risks were discussed with the patient. All questions were answered and informed consent was obtained. - Patient identification and proposed procedure were verified prior to the procedure by the physician and the nurse. The procedure was verified in the procedure room. - Pre-procedure physical examination revealed no contraindications to sedation. After obtaining informed consent, the endoscope was passed under direct vision. Throughout the procedure, the patient's blood pressure, pulse, and oxygen saturations were monitored continuously. The Endoscope was introduced through the mouth, and advanced to the third part of duodenum. The upper GI endoscopy was accomplished without difficulty. The patient tolerated the procedure well. Findings: A small hiatal hernia was present. The Z-line was regular and was found 37 cm from the incisors. Mildly erythematous mucosa was found in the stomach. Biopsies were taken with a cold forceps for Helicobacter pylori testing. Verification of patient identification for the specimen was done by the physician and nurse using the patient's name and date. The duodenal bulb and second portion of the duodenum were normal. A large diverticulum was found in the area of the papilla. Impression: - Small hiatal hernia. - Z-line regular, 37 cm from the incisors. - Erythematous mucosa in the stomach. Biopsied. - Normal duodenal bulb and second portion of the duodenum. - Duodenal diverticulum. Recommendation: - Await pathology results. - Perform a colonoscopy today. Jose Enrique Reyes MD 03/21/2021 1:42:34 PM This report has been signed electronically. Note Initiated On: 03/21/2021 12:39 PM Number of Addenda: 0 I attest to the content of the Intraoperative Record and orders documented therein, exceptions below {[id number]}
--- NOTE | 2021-03-21 13:47 | Anesthesiology Progress Note ---
Date of Service March 21, 2021 Anesthesia Post Procedure Vital Signs Vital Signs: Temp Pulse Pulse Resp BP Pulse Ox 03/21/21 07:45 36.4 C L 57 L 18 122/67 96 03/21/21 07:00 41 L 03/21/21 04:00 36.6 C 72 18 135/75 96 03/20/21 23:15 36.6 C 69 18 126/71 95 03/20/21 22:20 72 03/20/21 19:00 36.4 C L 66 18 142/63 H 95 03/20/21 15:22 64 Transfer of Care Handoff Completed per policy Notes Mental Status: alert / awake / arousable and participated in evaluation Patient Amnestic to Procedure: Yes Nausea / Vomiting: adequately controlled Pain: adequately controlled Airway Patency, RR, SpO2: stable & adequate BP & HR: stable & adequate Hydration State: stable & adequate Anesthetic Complications: no major complications apparent and Pt Satisfied with anesthetic care
--- NOTE | 2021-03-21 14:06 | GI REPORT ---
Patient Name: Milan Wild Procedure Date: 03/21/2021 12:38 PM Date of : 1940 Admit Type: Inpatient Age: 80 Gender: Male Attending MD: Jose Enrique Reyes MD Procedure: Colonoscopy Providers: Jose Enrique Reyes MD Referring MD: Zuri Curry Do Indications: Anemia, Chronic diarrhea Medicines: Propofol per Anesthesia Complications: No immediate complications. Estimated Blood Loss: Estimated blood loss: none. Procedure: Pre-Anesthesia Assessment: - Prior to the procedure, a History and Physical was performed, and patient medications, allergies and sensitivities were reviewed. The patient's tolerance of previous anesthesia was reviewed. - The risks and benefits of the procedure and the sedation options and risks were discussed with the patient. All questions were answered and informed consent was obtained. - Patient identification and proposed procedure were verified prior to the procedure by the physician and the nurse. The procedure was verified in the procedure room. - Pre-procedure physical examination revealed no contraindications to sedation. After I obtained informed consent, the scope was passed under direct vision. Throughout the procedure, the patient's blood pressure, pulse, and oxygen saturations were monitored continuously. The Colonoscope was introduced through the anus and advanced to the terminal ileum. The colonoscopy was performed without difficulty. The patient tolerated the procedure well. The quality of the bowel preparation was good. The terminal ileum, ileocecal valve, appendiceal orifice, and rectum were photographed. Findings: The perianal and digital rectal examinations were normal. The terminal ileum appeared normal. A 30 mm polyp was found in the ascending colon on the fold immediately distal to the ICV. The polyp was sessile and found to be Kudo Pit Pattern Type V (as viewed with Narrow Band Imaging). The polyp had central tethering suggesting SM invasion. The polyp did not lift with saline injection. Biopsies were taken with a cold forceps for histology. Verification of patient identification for the specimen was done by the physician and nurse using the patient's name and date. A 6 mm polyp was found in the sigmoid colon. The polyp was sessile. The polyp was removed with a cold snare. Resection and retrieval were complete. Scattered small and large-mouthed diverticula were found in the sigmoid colon. Normal mucosa was found in the entire colon. Biopsies for histology were taken with a cold forceps for evaluation of microscopic colitis. Non-bleeding internal hemorrhoids were found during retroflexion. The hemorrhoids were small. Impression: - The examined portion of the ileum was normal. 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 Biopsied. - One 6 mm polyp in the sigmoid colon, removed with a cold snare. Resected and retrieved. - Diverticulosis in the sigmoid colon. - Normal mucosa in the entire examined colon. Biopsied. - Non-bleeding internal hemorrhoids. Recommendation: - [facility]. - Await pathology results. - Based on path results of the polyp will decide about referral to surgery Vs. Endoscopic resection. I will follow up with the patient as OP. - Can resume AC however patient remains at risk for GI blood loss. Jose Enrique Reyes MD 03/21/2021 2:06:33 PM This report has been signed electronically. Note Initiated On: 03/21/2021 12:38 PM Number of Addenda: 0 I attest to the content of the Intraoperative Record and orders documented therein, exceptions below {[id number]}
--- NOTE | 2021-03-21 15:01 | Hospitalist Progress Note ---
Date of Service March 21, 2021 Assessment & Plan (1) Anemia: Plan: Likely multifactorial given excessive phlebotomy, recent illnesses, multiple comorbidities. Likely chronic GI blood loss from colon mass. Cont Eliquis to complete 3 months of therapy post PE. 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 Path pending (3) Epistaxis: Plan: Spontaneous overnight while on Lovenox therapy. This has resolved and Eliquis was restarted. (4) Paroxysmal A-fib: Plan: cont metoprolol, eliquis on hold as above doing well from a cardiac perspective. (5) Lower extremity edema: Plan: Lower extremity edema has resolved, teds as tolerated. (6) History of COVID-19: Plan: 01/2021 s/p remdesivir and dexamethasone, not currently requiring treatment or isolation. (7) History of pulmonary embolism: Plan: Diagnosed in Jan 2021, cont anticoagulation. Lovenox bridge to Eliquis post procedure. As above (8) Myasthenia gravis: Plan: continue Pyridostigmine and azathioprine, no evidence of crisis despite generalized weakness, PT/OT to assess. On further review of his records, he is supposed to be taking 10 mg twice daily of prednisone and has been off this for approximately 1 month because of moving into and out of the hospital. No evidence of myasthenia crisis, continue prednisone twice daily. (9) DM type 2 (diabetes mellitus, type 2): Plan: last a1c 6.7 12/2020 obtain a1c in a.m. May need to add blood sugar checks with addition of prednisone. Will test daily BMP for now. (10) Hypertension: Plan: BP stable, cont current therapy (11) Diarrhea: Plan: chronic diarrhea, not infectious, ongoing x 3 months. GI recommending colonoscopy which patient has declined. Lomotil PRN. Replace lytes as needed. (12) Hypokalemia: Plan: Likely related to chronic diarrhea. Replaced. Recheck in a.m. 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 Zuri Curry [facility] and [facility]ticipated Discharge Date Admission Date: March 16, 2021 Subjective 80 yo M presented with weakness in the setting of anemia. Recent prolonged acute illness and hospitalization including Covid hospitalization complicated by pneumonia with pulmonary embolism and paroxysmal atrial fibrillation. This is in the context of a history of myasthenia gravis and diabetes. EGD and CSP today-colon mass seen s/p biopsy Erythema in stomach with biopsy also pending. nausea has resolved and he is tolerating regular food denies pain we discussed that we need to await path results but that this mass could shoe turner to be malignant. He verbalized he knew this already prior to me talking with him We spoke about referral and transfer to SNF early next week We spoke about the possibility that he might lose blood on Eliquis because of this mass and may need additional blood products eventually. He verbalized understanding. Review of Systems Review of Systems: All systems reviewed and negative except as indicated above. Physical Exam Physical Exam: CONSTITUTIONAL: WNWD, vitals as above, NAD EYES: normal conjunctivae, no scleral icterus ENT: external ear and nose normal, MMM NECK: trachea midline RESPIRATORY: clear to auscultation bilaterally, no crackles, rales or wheezes, normal respiratory effort CARDIOVASCULAR: regular rate and rhythm, S1 and 2 heard without murmurs, gallops or rubs, no JVD, trace peripheral edema GASTROINTESTINAL: soft, nontender, ND, no guarding MUSCULOSKELETAL: generalized weakness without gross focal deficits. Head is normocephalic and atraumatic SKIN: warm and dry NEUROLOGIC: CN 2-12 grossly intact, normal cognition, normal speech, no tremor, no gross focal deficits. PSYCHIATRIC: alert cooperative and oriented to person, place and time. Results & Data Results & Data ([facility]) Vital Signs (Past 12 Hours) Vital Signs Temp Pulse Pulse Resp BP Pulse Ox 03/21/21 13:59 51 L 18 163/103 H 94 03/21/21 13:44 48 L 16 159/73 H 94 03/21/21 13:29 50 L 18 157/88 H 96 03/21/21 07:45 36.4 C L 57 L 18 122/67 96 03/21/21 07:00 41 L 03/21/21 04:00 36.6 C 72 18 135/75 96 Laboratory Results Short CBC 03/21/21 Range/Units 08:05 WBC 2.75 L (4.8-10.8) K/uL Hgb 8.7 L (14.0-18.0) g/dL Hct 26.5 L (42-52) % Plt Count 227 (130-400) K/uL BMP 03/21/21 08:05 Sodium 142 Potassium 3.5 Chloride 111 H Carbon Dioxide 22 BUN 4 L Creatinine 0.61 Glucose 115 H Calcium 7.2 L Medications Administered Current Inpatient Medications Acetaminophen (Acetaminophen 325 Mg Tab) 650 mg PO Q4H PRN PRN Reason: Pain or Fever Stop: 04/15/21 14:51 Last Admin: 03/21/21 01:13 Dose: 650 mg Documented by: Al Hydrox/Mg Hydrox/Simethicone (Aluminum/Magnesium Susp 30 Ml Udc) 15 ml PO Q4H PRN PRN Reason: Dyspepsia Stop: 04/15/21 14:51 Apixaban (Apixaban 5 Mg Tablet) 5 mg PO Q12 BOBBI Stop: 04/15/21 20:59 Last Admin: 03/19/21 08:14 Dose: Not Given Documented by: Atorvastatin Calcium (Atorvastatin 10 Mg Tab) 10 mg PO HS BOBBI Stop: 04/15/21 20:59 Last Admin: 03/20/21 21:26 Dose: 10 mg Documented by: Azathioprine (Azathioprine 50 Mg Tab) 100 mg PO DAILY BOBBI Stop: 04/16/21 08:59 Last Admin: 03/21/21 09:38 Dose: 100 mg Documented by: Citalopram Hydrobromide (Citalopram 40 Mg Tab) 40 mg PO DAILY BOBBI Stop: 04/16/21 08:59 Last Admin: 03/21/21 09:38 Dose: 40 mg Documented by: Dextrose (Dextrose 50% 50 Ml Syringe) 25 - 50 ml IV UD PRN; Protocol PRN Reason: Hypoglycemia Protocol Stop: 04/15/21 14:51 Glucagon (Glucagon For Inj 1 Mg Vial) 1 mg SQ UD PRN; Protocol PRN Reason: Hypoglycemia Protocol Stop: 04/15/21 14:51 Glucose (Glucose 10 Tabs/Tube) 4 - 8 tabs PO UD PRN; Protocol PRN Reason: Hypoglycemia Protocol Stop: 04/15/21 14:51 Glucose (Glucose 40% Gel 15 Gm Tube) 15 - 30 gm PO UD PRN; Protocol PRN Reason: Hypoglycemia Protocol Stop: 04/15/21 14:51 Lorazepam (Lorazepam 0.5 Mg Tab) 0.5 mg PO TID PRN PRN Reason: Anxiety Stop: 04/15/21 14:51 Magnesium Hydroxide (Magnesium Hydroxide Susp 30 Ml Udc) 30 ml PO Q12H PRN PRN Reason: Constipation Stop: 04/15/21 14:51 Metoprolol Tartrate (Metoprolol Tartrate 25 Mg Tab) 12.5 mg PO Q12 BOBBI Stop: 04/17/21 09:29 Last Admin: 03/21/21 09:38 Dose: Not Given Documented by: Miscellaneous (Carbohydrates For Hypoglycemia ) 15 - 30 gm PO UD PRN PRN Reason: Hypoglycemia Protocol Stop: 04/15/21 14:51 Ondansetron HCl (Ondansetron Inj 2 Mg/Ml 2 Ml Vial) 4 mg IV Q4H PRN PRN Reason: Nausea Stop: 04/16/21 15:36 Last Admin: 03/18/21 10:09 Dose: 4 mg Documented by: Prednisone (Prednisone 10 Mg Tablet) 10 mg PO BID BOBBI Stop: 04/18/21 20:59 Last Admin: 03/21/21 09:37 Dose: 10 mg Documented by: Promethazine HCl (Promethazine Hcl 25 Mg Tab) 25 mg PO Q6H PRN PRN Reason: Nausea And Vomiting Stop: 04/17/21 12:10 Pyridostigmine Dalton (Pyridostigmine Dalton 60 Mg Tab) 60 mg PO BID@0800,1230 [facility] Stop: 04/16/21 07:59 Last Admin: 03/21/21 14:59 Dose: Not Given Documented by: Pyridostigmine Dalton (Pyridostigmine Dalton 60 Mg Tab) 90 mg PO HS BOBBI Stop: 04/15/21 20:59 Last Admin: 03/20/21 21:23 Dose: 90 mg Documented by: Tamsulosin HCl (Tamsulosin Hcl 0.4 Mg Cap) 0.4 mg PO QDD BOBBI Stop: 04/15/21 16:29 Last Admin: 03/20/21 15:49 Dose: 0.4 mg Documented by:
[2021-03-21] MEDS: TAMSULOSIN HCL 0.4 MG CAP PO SCH (16:54)
[2021-03-21] MEDS: ATORVASTATIN 10 MG TAB PO SCH (21:35)
[2021-03-21] MEDS: APIXABAN 5 MG TABLET PO SCH (22:30)
[2021-03-22 07:43] LABS: Hematocrit (blood only) 24.2 % (42-52); Mean Corpuscular Hemoglobin 29.6 pg (25-34); Mean Corpuscular Hgb Conc 33.1 g/dL (32-36); Mean Corpuscular Volume 89.6 fL (80-100); Mean Platelet Volume 10.3 fL (7.4-10.4); Platelet Count 220 K/uL (130-400); RDW Coefficient of Variation 16.3 % (11.5-14.5); RDW Standard Deviation 51.5 fL (36.4-46.3); White Blood Count 2.32 K/uL (4.8-10.8)
[2021-03-22 08:16] LABS: BUN Creatinine Ratio 5.6 (10-20); Calcium 6.8 mg/dl (8.5-10.1); Creatinine Clr Calc Pharmacy 119.6 ml/min; Est GFR (African American) 107.8 ml/min; Magnesium 1.6 mg/dl (1.8-2.4); Potassium 3.2 mmol/L (3.5-5.1)
[2021-03-22 08:37] LABS: Phosphorus 1.5 mg/dl (2.5-4.9)
[2021-03-22] MEDS: predniSONE 10 MG TABLET PO SCH ×2 (08:54→20:37)
[2021-03-22] MEDS: METOPROLOL TARTRATE 25 MG TAB PO SCH ×2 (08:54→20:38)
[2021-03-22] MEDS: CITALOPRAM 40 MG TAB PO SCH (08:54)
[2021-03-22] MEDS: azaTHIOprine 50 MG TAB PO SCH (08:54)
[2021-03-22] MEDS: APIXABAN 5 MG TABLET PO SCH ×2 (08:55→20:39)
[2021-03-22] MEDS: PYRIDOSTIGMINE BROMIDE 60 MG TAB PO SCH ×3 (08:55→20:37)
[2021-03-22] MEDS ORDERED: POTASSIUM CHLORIDE CRTAB 20 MEQ TABCR PO STA (09:55)
[2021-03-22] MEDS ORDERED: SODIUM PHOSPHATE 3 MMOL/1 ML INFUSION IV STA (09:55)
[2021-03-22] MEDS ORDERED: CALCIUM GLUCONATE 10% 2,000 MG in SODIUM CHLORIDE 0.9% 50 ML IV ONE (10:15)
[2021-03-22] MEDS ORDERED: SODIUM PHOSPHATE 30 MMOL in SODIUM CHLORIDE 0.9% 500 ML IV ONE (10:30)
[2021-03-22] MEDS: MAGNESIUM SULFATE / D5W 1 GM/100 ML BAG IV SCH ×2 (10:39→12:41)
[2021-03-22] MEDS ORDERED: POTASSIUM CHLORIDE CRTAB 20 MEQ TABCR PO ONE (11:55)
[2021-03-22 16:34] LABS: Hematocrit (blood only) 28.3 % (42-52); Hemoglobin 9.2 g/dL (14.0-18.0)
[2021-03-22] MEDS: TAMSULOSIN HCL 0.4 MG CAP PO SCH (17:11)
[2021-03-22] MEDS ORDERED: MICONAZOLE NITRATE POWDER 43 GM EXT PRN (17:38)
[2021-03-22] MEDS: ATORVASTATIN 10 MG TAB PO SCH (20:38)
--- NOTE | 2021-03-22 20:42 | Hospitalist Progress Note ---
Date of Service March 22, 2021 Assessment & Plan (1) Anemia: Plan: Likely multifactorial given excessive phlebotomy, recent illnesses, multiple comorbidities. Likely chronic GI blood loss from colon mass. Cont Eliquis to complete 3 months of therapy post PE. Bloody bowel movement improving per patient and per RN. Continue to monitor. Monitor hemoglobin daily. Hemoglobin stable currently. 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 Path pending (3) Epistaxis: Plan: Spontaneous overnight while on Lovenox therapy. This has resolved and Eliquis was restarted. (4) Paroxysmal A-fib: Plan: cont metoprolol, eliquis on hold as above doing well from a cardiac perspective. (5) Lower extremity edema: Plan: Lower extremity edema has resolved, teds as tolerated. (6) History of COVID-19: Plan: 01/2021 s/p remdesivir and dexamethasone, not currently requiring treatment or isolation. (7) History of pulmonary embolism: Plan: Diagnosed in Jan 2021, cont anticoagulation. Lovenox bridge to Eliquis post procedure. As above (8) Myasthenia gravis: Plan: continue Pyridostigmine and azathioprine, no evidence of crisis despite generalized weakness, PT/OT to assess. On further review of his records, he is supposed to be taking 10 mg twice daily of prednisone and has been off this for approximately 1 month because of moving into and out of the hospital. No evidence of myasthenia crisis, continue prednisone twice daily. (9) DM type 2 (diabetes mellitus, type 2): Plan: last a1c 6.7 12/2020 obtain a1c in a.m. May need to add blood sugar checks with addition of prednisone. Will test daily BMP for now. (10) Hypertension: Plan: BP stable, cont current therapy (11) Diarrhea: Plan: chronic diarrhea, not infectious, ongoing x 3 months. GI recommending colonoscopy which patient has declined. Lomotil PRN. Replace lytes as needed. (12) Hypokalemia: Plan: Likely related to chronic diarrhea. Replaced. Recheck in a.m. 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 Admission and Anticipated Discharge Date Admission Date: March 16, 2021 Subjective Patient was lying in bed, on room air, NAD. Per RN, patient had bloody bowel movement overnight, and had a.m. diarrheal movement with more watery with less blood component. Patient denies fever/headache/chills/chest pain/palpitation/other review of symptoms. Patient is eating okay. Physical Exam Physical Exam: CONSTITUTIONAL: WNWD, vitals as above, NAD EYES: normal conjunctivae, no scleral icterus ENT: external ear and nose normal, MMM NECK: trachea midline RESPIRATORY: clear to auscultation bilaterally, no crackles, rales or wheezes, normal respiratory effort CARDIOVASCULAR: regular rate and rhythm, S1 and 2 heard without murmurs, gallops or rubs, no JVD, trace peripheral edema GASTROINTESTINAL: soft, nontender, ND, no guarding MUSCULOSKELETAL: generalized weakness without gross focal deficits. Head is normocephalic and atraumatic SKIN: warm and dry NEUROLOGIC: CN 2-12 grossly intact, normal cognition, normal speech, no tremor, no gross focal deficits. PSYCHIATRIC: alert cooperative and oriented to person, place and time. Results & Data Results & Data ([facility]) Vital Signs (Past 12 Hours) Vital Signs Temp Pulse Pulse Resp BP Pulse Ox 03/22/21 18:32 36.6 C 90 16 160/65 H 95 03/22/21 17:12 97 03/22/21 16:28 72 03/22/21 15:48 36.4 C L 64 16 136/68 96 03/22/21 11:13 37.0 C 56 L 16 121/67 94
[2021-03-23 09:03] LABS: Mean Corpuscular Hgb Conc 33.3 g/dL (32-36); Mean Platelet Volume 10.5 fL (7.4-10.4); Platelet Count 213 K/uL (130-400); RDW Coefficient of Variation 16.1 % (11.5-14.5); RDW Standard Deviation 51.1 fL (36.4-46.3); White Blood Count 3.76 K/uL (4.8-10.8)
[2021-03-23] MEDS: METOPROLOL TARTRATE 25 MG TAB PO SCH ×2 (09:42→20:34)
[2021-03-23] MEDS: APIXABAN 5 MG TABLET PO SCH ×2 (09:42→20:34)
[2021-03-23] MEDS: azaTHIOprine 50 MG TAB PO SCH (09:43)
[2021-03-23] MEDS: predniSONE 10 MG TABLET PO SCH ×2 (09:43→20:42)
[2021-03-23] MEDS: PYRIDOSTIGMINE BROMIDE 60 MG TAB PO SCH ×3 (09:43→21:46)
[2021-03-23] MEDS: CITALOPRAM 40 MG TAB PO SCH (09:43)
[2021-03-23 09:49] LABS: BUN Creatinine Ratio 5.7 (10-20); Calcium 7.4 mg/dl (8.5-10.1); Creatinine Clr Calc Pharmacy 119.2 ml/min; Est GFR (African American) 107.8 ml/min; Magnesium 1.6 mg/dl (1.8-2.4); Phosphorus 1.9 mg/dl (2.5-4.9); Potassium 2.6 mmol/L (3.5-5.1)
[2021-03-23] MEDS ORDERED: METOPROLOL TARTRATE 1 MG/ML VIAL IV STA (09:57)
--- NOTE | 2021-03-23 10:43 | Hospitalist Progress Note ---
Date of Service March 23, 2021 Assessment & Plan (1) Atrial fibrillation with rapid ventricular response: Plan: Known paroxysmal atrial fibrillation with RVR this am. He was in sinus rhythm this admission until this morning. Lopressor 5mg IV given. Was on bedpan and had a BM during this time. BP went to 85 systolic and he had a temporary loss of consciousness. IVF given and BP responded, HR improved, still in afib. Repeat EKG pending. (2) Syncope: Plan: Momentary loss of consciousness 2/2 hypotension with BM and Lopressor given together. Improved now with IVF. BP into the normal range within minutes and mentating clearly within just a couple of minutes. He was assisted to the floor by two nurses until additional manpower could arrive and assist him into the bed. He did not experience a traumatic fall. (3) Anemia: Plan: Likely multifactorial given excessive phlebotomy, recent illnesses, multiple comorbidities. Likely chronic GI blood loss from colon mass. Cont Eliquis to complete 3 months of therapy post PE. H/H is improved and no hematochezia or melena has been noted. 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 Path pending (5) Epistaxis: Plan: Spontaneous overnight while on Lovenox therapy. This has resolved and Eliquis was restarted. (6) Paroxysmal A-fib: Plan: cont metoprolol, eliquis on hold as above doing well from a cardiac perspective. (7) Electrolyte abnormality: Plan: low phos, low K, low Ca, and low Mg. Multifactorial including ongoing diarrhea and poor nutrition. Replacing IVF. Recheck this evening. (8) Lower extremity edema: Plan: 2+ lower extremity edema present. Patient appears euvolemic. With recent events, will hold on any diuretic therapy. TEDs declined by patient. (9) History of COVID-19: Plan: 01/2021 s/p remdesivir and dexamethasone, not currently requiring treatment or isolation. (10) History of pulmonary embolism: Plan: Diagnosed in Jan 2021, cont anticoagulation. Cont Eliquis (11) Myasthenia gravis: Plan: continue Pyridostigmine and azathioprine, no evidence of crisis despite generalized weakness, PT/OT to assess. On further review of his records, he is supposed to be taking 10 mg twice daily of prednisone and has been off this for approximately 1 month because of moving into and out of the hospital. No evidence of myasthenia crisis, continue prednisone twice daily which was restarted a few days ago. (12) DM type 2 (diabetes mellitus, type 2): Plan: A1C 7.1. May need to add blood sugar checks with addition of prednisone. Will test daily BMP for now. (13) Hypertension: Plan: BP stable, cont current therapy (14) Diarrhea: Plan: chronic diarrhea, not infectious, ongoing x 3 months. Recent colonoscopy and patient reported an improvement. 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: currently at [facility] will need to return for further PT/OT (16) DVT prophylaxis: Plan: Eliquis full code Dispo- to SNF after the weekend. DO [facility] Hospitalist Admission and Anticipated Discharge Date Admission Date: March 16, 2021 Subjective 80 yo M presented with weakness in the setting of anemia. Recent prolonged acute illness and hospitalization including Covid hospitalization complicated by pneumonia with pulmonary embolism and paroxysmal atrial fibrillation. This is in the context of a history of myasthenia gravis and diabetes. Patient was doing well today Denied nausea/vomiting Legs are more swollen today converted into afib with RVR with a rate into the 150s. He had been given scheduled metoprolol 50mg PO this am BP was 96 systolic, given Lopressor 5mg IV Unfortunately he was also on the bedpan at the time the medication was given and he had a momentary loss of consciousness with his head hanging low in the chair Two nurses responded very quickly and couldn't wake him A code purple was called overhead BP was 86 systolic and HR was 55 at that time Fluid bolus was started and BP started to respond immediately with a BP 107 systolic, HR came up into the 90s Patient's mental status was clear after just a few minutes He was nauseous and vomited a couple of times into a basin. He otherwise denied any SOB, chest pain, heart palpitations. Transfer placed to PCU. Contacted Clarissa and updated her on the situation. All questions were answered to her satisfaction. Zofran given for nausea. Review of Systems Review of Systems: All systems reviewed and negative except as indicated above. Physical Exam Physical Exam: CONSTITUTIONAL: WNWD, vitals as above, NAD EYES: normal conjunctivae, no scleral icterus ENT: external ear and nose normal, MMM NECK: trachea midline RESPIRATORY: clear to auscultation bilaterally, no crackles, rales or wheezes, normal respiratory effort CARDIOVASCULAR: regular rate and rhythm, S1 and 2 heard without murmurs, gallops or rubs, no JVD, +2 peripheral edema GASTROINTESTINAL: soft, nontender, ND, no guarding MUSCULOSKELETAL: generalized weakness without gross focal deficits. Head is normocephalic and atraumatic SKIN: warm and dry NEUROLOGIC: CN 2-12 grossly intact, normal cognition, normal speech, no tremor, no gross focal deficits. PSYCHIATRIC: alert cooperative and oriented to person, place and time. Results & Data Results & Data ([facility]) Vital Signs (Past 12 Hours) Vital Signs Temp Pulse Pulse Resp BP BP Pulse Ox 03/23/21 10:04 147 H 96/64 L 03/23/21 07:07 36.4 C L 74 18 130/57 L 95 03/23/21 02:35 36.7 C 60 18 128/60 96 03/22/21 23:23 75 Laboratory Results Short CBC 03/22/21 03/23/21 Range/Units 16:23 08:19 WBC 3.76 L (4.8-10.8) K/uL Hgb 9.2 L 9.0 L (14.0-18.0) g/dL Hct 28.3 L 27.0 L (42-52) % Plt Count 213 (130-400) K/uL [facility] 03/23/21 08:19 Sodium 142 Potassium 2.6 L D Chloride 110 H Carbon Dioxide 26 BUN 4 L Creatinine 0.62 Glucose 83 Calcium 7.4 L Diagnostic Findings Short CBC 03/22/21 03/23/21 Range/Units 16:23 08:19 WBC 3.76 L (4.8-10.8) K/uL Hgb 9.2 L 9.0 L (14.0-18.0) g/dL Hct 28.3 L 27.0 L (42-52) % Plt Count 213 (130-400) K/uL [facility] 03/23/21 08:19 Sodium 142 Potassium 2.6 L D Chloride 110 H Carbon Dioxide 26 BUN 4 L Creatinine 0.62 Glucose 83 Calcium 7.4 L Medications Administered Current Inpatient Medications Acetaminophen (Acetaminophen 325 Mg Tab) 650 mg PO Q4H PRN PRN Reason: Pain or Fever Stop: 04/15/21 14:51 Last Admin: 03/21/21 01:13 Dose: 650 mg Documented by: Al Hydrox/Mg Hydrox/Simethicone (Aluminum/Magnesium Susp 30 Ml Udc) 15 ml PO Q4H PRN PRN Reason: Dyspepsia Stop: 04/15/21 14:51 Apixaban (Apixaban 5 Mg Tablet) 5 mg PO Q12 [facility] Stop: 04/15/21 20:59 Last Admin: 03/23/21 09:42 Dose: 5 mg Documented by: Atorvastatin Calcium (Atorvastatin 10 Mg Tab) 10 mg PO HS [facility] Stop: 04/15/21 20:59 Last Admin: 03/22/21 20:38 Dose: 10 mg Documented by: Azathioprine (Azathioprine 50 Mg Tab) 100 mg PO DAILY [facility] Stop: 04/16/21 08:59 Last Admin: 03/23/21 09:43 Dose: 100 mg Documented by: Citalopram Hydrobromide (Citalopram 40 Mg Tab) 40 mg PO DAILY [facility] Stop: 04/16/21 08:59 Last Admin: 03/23/21 09:43 Dose: 40 mg Documented by: Dextrose (Dextrose 50% 50 Ml Syringe) 25 - 50 ml IV UD PRN; Protocol PRN Reason: Hypoglycemia Protocol Stop: 04/15/21 14:51 Glucagon (Glucagon For Inj 1 Mg Vial) 1 mg SQ UD PRN; Protocol PRN Reason: Hypoglycemia Protocol Stop: 04/15/21 14:51 Glucose (Glucose 10 Tabs/Tube) 4 - 8 tabs PO UD PRN; Protocol PRN Reason: Hypoglycemia Protocol Stop: 04/15/21 14:51 Glucose (Glucose 40% Gel 15 Gm Tube) 15 - 30 gm PO UD PRN; Protocol PRN Reason: Hypoglycemia Protocol Stop: 04/15/21 14:51 Magnesium Sulfate 4 gm/Calcium Gluconate 1,000 mg/Sodium Chloride 1,018 mls @ 125 mls/hr IV .Q8H9M [facility]BI Stop: 03/23/21 19:08 Potassium Phosphate 30 mmol/ (Sodium Chloride) 510 mls @ 88 mls/hr IV ONE ONE Stop: 03/23/21 16:47 Lorazepam (Lorazepam 0.5 Mg Tab) 0.5 mg PO TID PRN PRN Reason: Anxiety Stop: 04/15/21 14:51 Magnesium Hydroxide (Magnesium Hydroxide Susp 30 Ml Udc) 30 ml PO Q12H PRN PRN Reason: Constipation Stop: 04/15/21 14:51 Metoprolol Tartrate (Metoprolol Tartrate 25 Mg Tab) 12.5 mg PO Q12 [facility] Stop: 04/17/21 09:29 Last Admin: 03/23/21 09:42 Dose: 12.5 mg Documented by: Miconazole Nitrate (Miconazole Nitrate Powder 43 Gm) 1 appln EXT Q1H PRN PRN Reason: AFFECTED SKIN Stop: 04/21/21 17:37 Miscellaneous (Carbohydrates For Hypoglycemia ) 15 - 30 gm PO UD PRN PRN Reason: Hypoglycemia Protocol Stop: 04/15/21 14:51 Ondansetron HCl (Ondansetron Inj 2 Mg/Ml 2 Ml Vial) 4 mg IV Q4H PRN PRN Reason: Nausea Stop: 04/16/21 15:36 Last Admin: 03/23/21 10:57 Dose: 4 mg Documented by: Potassium Chloride (Potassium Chloride Crtab 20 Meq Tabcr) 40 meq PO Q6H [facility] Stop: 03/23/21 22:01 Prednisone (Prednisone 10 Mg Tablet) 10 mg PO BID [facility] Stop: 04/18/21 20:59 Last Admin: 03/23/21 09:43 Dose: 10 mg Documented by: Promethazine HCl (Promethazine Hcl 25 Mg Tab) 25 mg PO Q6H PRN PRN Reason: Nausea And Vomiting Stop: 04/17/21 12:10 Pyridostigmine [place] (Pyridostigmine [place] 60 Mg Tab) 60 mg PO BID@0800,1230 [facility] Stop: 04/16/21 07:59 Last Admin: 03/23/21 09:43 Dose: 60 mg Documented by: Pyridostigmine [place] (Pyridostigmine [place] 60 Mg Tab) 90 mg PO HS [facility]OB[facility] Stop: 04/15/21 20:59 Last Admin: 03/22/21 20:37 Dose: 90 mg Documented by: Tamsulosin HCl (Tamsulosin Hcl 0.4 Mg Cap) 0.4 mg PO QDD [facility] Stop: 04/15/21 16:29 Last Admin: 03/22/21 17:11 Dose: 0.4 mg Documented by:
[2021-03-23] MEDS: ONDANSETRON INJ 2 MG/ML 2 ML VIAL IV PRN (10:57)
[2021-03-23] MEDS ORDERED: POTASSIUM PHOSPHATE 30 MMOL in SODIUM CHLORIDE 0.9% 500 ML IV ONE (11:00)
[2021-03-23] MEDS ORDERED: MAGNESIUM SULFATE IV SCH (11:00)
[2021-03-23] MEDS ORDERED: CALCIUM GLUCONATE IV SCH (11:00)
[2021-03-23] MEDS ORDERED: [UNRECOGNIZED DRUG - OTHER] IV SCH (11:00)
[2021-03-23] MEDS: POTASSIUM CHLORIDE CRTAB 20 MEQ TABCR PO SCH ×4 (11:30→23:16)
[2021-03-23] MEDS: TAMSULOSIN HCL 0.4 MG CAP PO SCH (17:15)
[2021-03-23] MEDS: ATORVASTATIN 10 MG TAB PO SCH (20:39)
[2021-03-23 22:04] LABS: Albumin Level 1.6 gm/dl (3.4-5.0); BUN Creatinine Ratio 4.9 (10-20); Calcium 7.3 mg/dl (8.5-10.1); Creatinine Clr Calc Pharmacy 127.4 ml/min; Est GFR (African American) 110.8 ml/min; Est GFR (Non-African American) 95.6 ml/min; Magnesium 2.2 mg/dl (1.8-2.4); Potassium 4.1 mmol/L (3.5-5.1)
[2021-03-23 23:19] LABS: Phosphorus 2.9 mg/dl (2.5-4.9)
[2021-03-24] MEDS: METOPROLOL TARTRATE 25 MG TAB PO SCH ×2 (08:43→21:02)
[2021-03-24] MEDS: APIXABAN 5 MG TABLET PO SCH ×2 (08:43→21:05)
[2021-03-24] MEDS: CITALOPRAM 40 MG TAB PO SCH (08:43)
[2021-03-24] MEDS: azaTHIOprine 50 MG TAB PO SCH (08:43)
[2021-03-24] MEDS: PYRIDOSTIGMINE BROMIDE 60 MG TAB PO SCH ×3 (09:33→21:04)
[2021-03-24] MEDS: predniSONE 10 MG TABLET PO SCH ×2 (09:33→21:06)
[2021-03-24 15:13] LABS: Eosinophils # (auto) 0.03 K/uL (0-0.5); Eosinophils % (auto) 1.2 %; Hematocrit (blood only) 27.6 % (42-52); Hemoglobin 9.1 g/dL (14.0-18.0); Immature Granulocytes # (auto) 0.01 K/uL (0.00-0.02); Immature Granulocytes % (auto) 0.4 %; Lymphocytes % (auto) 19.2 %; Mean Corpuscular Hemoglobin 29.9 pg (25-34); Mean Corpuscular Volume 90.8 fL (80-100); Mean Platelet Volume 10.5 fL (7.4-10.4); Monocytes # (auto) 0.05 K/uL (0.11-0.59); Monocytes % (auto) 1.9 %; Neutrophils # (auto) 2.01 K/uL (1.4-6.5); Neutrophils % (auto) 77.3 %; Platelet Count 204 K/uL (130-400); RDW Coefficient of Variation 16.4 % (11.5-14.5); RDW Standard Deviation 52.6 fL (36.4-46.3); Red Blood Count 3.04 M/uL (4.7-6.1)
[2021-03-24 15:36] LABS: BUN Creatinine Ratio 4.1 (10-20); Calcium 7.1 mg/dl (8.5-10.1); Est GFR (African American) 91.3 ml/min; Est GFR (Non-African American) 78.8 ml/min; Magnesium 1.8 mg/dl (1.8-2.4); Phosphorus 2.1 mg/dl (2.5-4.9); Potassium 4.1 mmol/L (3.5-5.1)
--- NOTE | 2021-03-24 16:07 | Hospitalist Progress Note ---
Date of Service March 24, 2021 Assessment & Plan (1) Atrial fibrillation with rapid ventricular response: Plan: Known paroxysmal atrial fibrillation with RVR this am 03/23/2021. He was in sinus rhythm this admission until this morning. Lopressor 5mg IV given. Was on bedpan and had a BM during this time. BP went to 85 systolic and he had a temporary loss of consciousness. IVF given and BP responded, HR improved, still in afib. Repeat EKG on 03/23/2021 at 11:25 AM noted to be very bradycardic at 51/min Will not give any more IV beta-ramandeep but continue with the oral small dose of beta-ramandeep as before and the heart rate this morning has been around 65 Patient remains weak and lethargic (2) Syncope: Plan: Momentary loss of consciousness 2/2 hypotension with BM and Lopressor given together. Improved now with IVF. BP into the normal range within minutes and mentating clearly within just a couple of minutes. He was assisted to the floor by two nurses until additional manpower could arrive and assist him into the bed. He did not experience a traumatic fall. Will need to have PT and OT evaluation (3) Anemia: Plan: Likely multifactorial given excessive phlebotomy, recent illnesses, multiple comorbidities. Likely chronic GI blood loss from colon mass. Cont Eliquis to complete 3 months of therapy post PE. H/H is improved and no hematochezia or melena has been noted. 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 Path pending (5) Epistaxis: Plan: Spontaneous overnight while on Lovenox therapy. This has resolved and Eliquis was restarted. (6) Paroxysmal A-fib: Plan: Cont metoprolol, eliquis on hold as above doing well from a cardiac perspective. (7) Electrolyte abnormality: Plan: Low phos, low K, low Ca, and low Mg. Multifactorial including ongoing diarrhea and poor nutrition. Replacing IVF. Recheck this evening. (8) Lower extremity edema: Plan: 2+ lower extremity edema present. Patient appears euvolemic. With recent events, will hold on any diuretic therapy. TEDs declined by patient. (9) History of COVID-19: Plan: 01/2021 s/p remdesivir and dexamethasone, not currently requiring treatment or isolation. (10) History of pulmonary embolism: Plan: Diagnosed in Jan 2021, cont anticoagulation. Cont Eliquis (11) Myasthenia gravis: Plan: Continue Pyridostigmine and azathioprine, no evidence of crisis despite generalized weakness, PT/OT to assess. On further review of his records, he is supposed to be taking 10 mg twice daily of prednisone and has been off this for approximately 1 month because of moving into and out of the hospital. No evidence of myasthenia crisis, continue prednisone twice daily which was restarted a few days ago. (12) DM type 2 (diabetes mellitus, type 2): Plan: A1C 7.1. May need to add blood sugar checks with addition of prednisone. Will test daily BMP for now. (13) Hypertension: Plan: BP stable, cont current therapy (14) Diarrhea: Plan: chronic diarrhea, not infectious, ongoing x 3 months. Recent colonoscopy and patient reported an improvement. 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 Admission and Anticipated Discharge Date Admission Date: March 16, 2021 Subjective 03/24/2021 The patient was seen and examined in telemetry unit He has been weak and lethargic and complains to have some abdominal discomfort Denies any chest pain and/or palpitation or any shortness of breath at rest Review of Systems Review of Systems: All systems reviewed and are unremarkable except as noted below Neurologic: Generally weak and lethargic Physical Exam Physical Exam: Lying in bed without any acute distress but looks pale Constitutional: well developed, well nourished, + ill appearing and + obese Eyes: PERRL, conjunctivae normal, anicteric sclerae ENMT: external ear and nose normal, oropharynx normal Neck: trachea midline, no thyromegaly Respiratory: no respiratory distress, no labored breathing and no cough Auscultation: + diminished lung sounds; no crackles and no wheezes Cardiovascular: Rate/Rhythm: regular rate and regular rhythm; not tachycardic Heart Sounds: normal S1 and normal S2; no murmur Extremities: + edema (1+ edema bilaterally) Gastrointestinal (Abdomen): Inspection/Auscultation: normal bowel sounds; abdomen not distended Percussion/Palpation: + abdomen tender (Minimally tender in the lower quadrant) and abdomen soft Musculoskeletal: No acute arthritis in any joint Neurologic: Alert, awake and oriented x3. Generally weak but no focal sensory or no motor deficit appreciated Lymphatic: no cervical or axillary lymphadenopathy Results & Data Results & Data ([facility]) Vital Signs (Past 12 Hours) Vital Signs Temp Pulse Pulse Pulse Resp BP BP 03/24/21 16:01 36.6 C 65 18 130/81 03/24/21 14:52 77 03/24/21 12:44 37.0 C 71 18 124/80 03/24/21 07:46 72 03/24/21 06:50 36.6 C 74 74 20 130/84 Pulse Ox 03/24/21 16:01 95 03/24/21 14:52 03/24/21 12:44 95 03/24/21 07:46 03/24/21 06:50 97 Laboratory Results Short CBC 03/24/21 Range/Units 14:49 WBC 2.60 L (4.8-10.8) K/uL Hgb 9.1 L (14.0-18.0) g/dL Hct 27.6 L (42-52) % Plt Count 204 (130-400) K/uL BMP 03/23/21 03/24/21 21:26 14:49 Sodium 144 142 Potassium 4.1 D 4.1 Chloride 112 H 111 H Carbon Dioxide 24 23 BUN 3 L 4 L Creatinine 0.58 L 0.91 D Glucose 103 H 136 H Calcium 7.3 L 7.1 L Liver Function 03/23/21 Range/Units 21:26 Albumin 1.6 L (3.4-5.0) gm/dl Medications Administered Current Inpatient Medications Acetaminophen (Acetaminophen 325 Mg Tab) 650 mg PO Q4H PRN PRN Reason: Pain or Fever Stop: 04/15/21 14:51 Last Admin: 03/21/21 01:13 Dose: 650 mg Documented by: Al Hydrox/Mg Hydrox/Simethicone (Aluminum/Magnesium Susp 30 Ml Udc) 15 ml PO Q4H PRN PRN Reason: Dyspepsia Stop: 04/15/21 14:51 Apixaban (Apixaban 5 Mg Tablet) 5 mg PO Q12 [facility] Stop: 04/15/21 20:59 Last Admin: 03/24/21 08:43 Dose: 5 mg Documented by: Atorvastatin Calcium (Atorvastatin 10 Mg Tab) 10 mg PO HS [facility]BI Stop: 04/15/21 20:59 Last Admin: 03/23/21 20:39 Dose: 10 mg Documented by: Azathioprine (Azathioprine 50 Mg Tab) 100 mg PO DAILY [facility] Stop: 04/16/21 08:59 Last Admin: 03/24/21 08:43 Dose: 100 mg Documented by: Citalopram Hydrobromide (Citalopram 40 Mg Tab) 40 mg PO DAILY [facility]BI Stop: 04/16/21 08:59 Last Admin: 03/24/21 08:43 Dose: 40 mg Documented by: Dextrose (Dextrose 50% 50 Ml Syringe) 25 - 50 ml IV UD PRN; Protocol PRN Reason: Hypoglycemia Protocol Stop: 04/15/21 14:51 Glucagon (Glucagon For Inj 1 Mg Vial) 1 mg SQ UD PRN; Protocol PRN Reason: Hypoglycemia Protocol Stop: 04/15/21 14:51 Glucose (Glucose 10 Tabs/Tube) 4 - 8 tabs PO UD PRN; Protocol PRN Reason: Hypoglycemia Protocol Stop: 04/15/21 14:51 Glucose (Glucose 40% Gel 15 Gm Tube) 15 - 30 gm PO UD PRN; Protocol PRN Reason: Hypoglycemia Protocol Stop: 04/15/21 14:51 Lorazepam (Lorazepam 0.5 Mg Tab) 0.5 mg PO TID PRN PRN Reason: Anxiety Stop: 04/15/21 14:51 Magnesium Hydroxide (Magnesium Hydroxide Susp 30 Ml Udc) 30 ml PO Q12H PRN PRN Reason: Constipation Stop: 04/15/21 14:51 Metoprolol Tartrate (Metoprolol Tartrate 25 Mg Tab) 12.5 mg PO Q12 [facility] Stop: 04/17/21 09:29 Last Admin: 03/24/21 08:43 Dose: 12.5 mg Documented by: Miconazole Nitrate (Miconazole Nitrate Powder 43 Gm) 1 appln EXT Q1H PRN PRN Reason: AFFECTED SKIN Stop: 04/21/21 17:37 Miscellaneous (Carbohydrates For Hypoglycemia ) 15 - 30 gm PO UD PRN PRN Reason: Hypoglycemia Protocol Stop: 04/15/21 14:51 Ondansetron HCl (Ondansetron Inj 2 Mg/Ml 2 Ml Vial) 4 mg IV Q4H PRN PRN Reason: Nausea Stop: 04/16/21 15:36 Last Admin: 03/23/21 10:57 Dose: 4 mg Documented by: Prednisone (Prednisone 10 Mg Tablet) 10 mg PO BID [facility] Stop: 04/18/21 20:59 Last Admin: 03/24/21 09:33 Dose: 10 mg Documented by: Promethazine HCl (Promethazine Hcl 25 Mg Tab) 25 mg PO Q6H PRN PRN Reason: Nausea And Vomiting Stop: 04/17/21 12:10 Pyridostigmine [place] (Pyridostigmine [place] 60 Mg Tab) 60 mg PO BID@0800,1230 [facility] Stop: 04/16/21 07:59 Last Admin: 03/24/21 12:04 Dose: 60 mg Documented by: Pyridostigmine [place] (Pyridostigmine [place] 60 Mg Tab) 90 mg PO HS [facility] Stop: 04/15/21 20:59 Last Admin: 03/23/21 21:46 Dose: 90 mg Documented by: Tamsulosin HCl (Tamsulosin Hcl 0.4 Mg Cap) 0.4 mg PO QDD [facility] Stop: 04/15/21 16:29 Last Admin: 03/23/21 17:15 Dose: 0.4 mg Documented by:
[2021-03-24] MEDS: TAMSULOSIN HCL 0.4 MG CAP PO SCH (16:42)
[2021-03-24] MEDS: ATORVASTATIN 10 MG TAB PO SCH (21:06)
--- NOTE | 2021-03-25 05:33 | Electrocardiogram Report ---
Test Reason : Blood Pressure : / mmHG Vent. Rate : 051 BPM Atrial Rate : 051 BPM P-R Int : 128 ms QRS Dur : 142 ms QT Int : 478 ms P-R-T Axes : 011 -59 109 degrees QTc Int : 440 ms Sinus bradycardia with Premature atrial complexes Right bundle branch block Left anterior fascicular block Bifascicular block Abnormal ECG When compared with ECG of 19-MAR-2021 13:18, Vent. rate has decreased BY 31 BPM Nonspecific T wave abnormality is now Present in Anterolateral leads QT has shortened Confirmed by Donell Barragan ([id number] on 03/25/2021 5:33:36 AM Referred By: [facility] Confirmed By:Donell Barragan
[2021-03-25 06:36] LABS: Eosinophils # (auto) 0.02 K/uL (0-0.5); Eosinophils % (auto) 0.8 %; Hematocrit (blood only) 24.7 % (42-52); Immature Granulocytes # (auto) 0.02 K/uL (0.00-0.02); Immature Granulocytes % (auto) 0.8 %; Lymphocytes # (auto) 0.65 K/uL (1.2-3.4); Lymphocytes % (auto) 25.9 %; Mean Corpuscular Hemoglobin 29.7 pg (25-34); Mean Corpuscular Hgb Conc 32.4 g/dL (32-36); Mean Corpuscular Volume 91.8 fL (80-100); Monocytes # (auto) 0.14 K/uL (0.11-0.59); Monocytes % (auto) 5.6 %; Neutrophils # (auto) 1.68 K/uL (1.4-6.5); Neutrophils % (auto) 66.9 %; Platelet Count 190 K/uL (130-400); Red Blood Count 2.69 M/uL (4.7-6.1); White Blood Count 2.51 K/uL (4.8-10.8)
[2021-03-25 07:15] LABS: BUN Creatinine Ratio 7.4 (10-20); Calcium 7.8 mg/dl (8.5-10.1); Creatinine Clr Calc Pharmacy 93.3 ml/min; Est GFR (African American) 97.6 ml/min; Est GFR (Non-African American) 84.2 ml/min; Magnesium 1.7 mg/dl (1.8-2.4); Potassium 4.1 mmol/L (3.5-5.1)
[2021-03-25] MEDS: PYRIDOSTIGMINE BROMIDE 60 MG TAB PO SCH ×3 (09:36→20:48)
[2021-03-25] MEDS: APIXABAN 5 MG TABLET PO SCH ×2 (09:36→20:47)
[2021-03-25] MEDS: predniSONE 10 MG TABLET PO SCH ×2 (09:36→20:49)
[2021-03-25] MEDS: CITALOPRAM 40 MG TAB PO SCH (09:37)
[2021-03-25] MEDS: azaTHIOprine 50 MG TAB PO SCH (09:37)
[2021-03-25] MEDS: METOPROLOL TARTRATE 25 MG TAB PO SCH ×2 (10:13→20:50)
--- NOTE | 2021-03-25 16:11 | Hospitalist Progress Note ---
Date of Service March 25, 2021 Assessment & Plan (1) Atrial fibrillation with rapid ventricular response: Plan: Known paroxysmal atrial fibrillation with RVR this am 03/23/2021. He was in sinus rhythm this admission until this morning. Lopressor 5mg IV given. Was on bedpan and had a BM during this time. BP went to 85 systolic and he had a temporary loss of consciousness. IVF given and BP responded, HR improved, still in afib. Repeat EKG on 03/23/2021 at 11:25 AM noted to be very bradycardic at 51/min Will not give any more IV beta-ramandeep but continue with the oral small dose of beta-ramandeep as before and the heart rate this morning has been around 65 Patient remains weak and lethargic Rate is controlled and does not have any cardiac symptoms (2) Syncope: Plan: Momentary loss of consciousness 2/2 hypotension with BM and Lopressor given together. Improved now with IVF. BP into the normal range within minutes and mentating clearly within just a couple of minutes. He was assisted to the floor by two nurses until additional manpower could arrive and assist him into the bed. He did not experience a traumatic fall. Will need to have PT and OT evaluation Likely be discharged tomorrow (3) Anemia: Plan: Likely multifactorial given excessive phlebotomy, recent illnesses, multiple comorbidities. Likely chronic GI blood loss from colon mass. Cont Eliquis to complete 3 months of therapy post PE. H/H is improved and no hematochezia or melena has been noted. 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 Path pending-shows adenomatous polyp and further recommendations pending from nursing program director No other significant findings from his specimens of duodenum and stomach (5) Epistaxis: Plan: Spontaneous overnight while on Lovenox therapy. This has resolved and Eliquis was restarted. (6) Paroxysmal A-fib: Plan: Cont metoprolol, eliquis on hold as above doing well from a cardiac perspective. (7) Electrolyte abnormality: Plan: Low phos, low K, low Ca, and low Mg. Multifactorial including ongoing diarrhea and poor nutrition. Replacing IVF. Recheck this evening. (8) Lower extremity edema: Plan: 2+ lower extremity edema present. Patient appears euvolemic. With recent events, will hold on any diuretic therapy. TEDs declined by patient. (9) History of COVID-19: Plan: 01/2021 s/p remdesivir and dexamethasone, not currently requiring treatment or isolation. (10) History of pulmonary embolism: Plan: Diagnosed in Jan 2021, cont anticoagulation. Cont Eliquis (11) Myasthenia gravis: Plan: Continue Pyridostigmine and azathioprine, no evidence of crisis despite generalized weakness, PT/OT to assess. On further review of his records, he is supposed to be taking 10 mg twice daily of prednisone and has been off this for approximately 1 month because of moving into and out of the hospital. No evidence of myasthenia crisis, continue prednisone twice daily which was restarted a few days ago. (12) DM type 2 (diabetes mellitus, type 2): Plan: A1C 7.1. May need to add blood sugar checks with addition of prednisone. Will test daily BMP for now. (13) Hypertension: Plan: BP stable, cont current therapy (14) Diarrhea: Plan: chronic diarrhea, not infectious, ongoing x 3 months. Recent colonoscopy and patient reported an improvement. 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: currently at [facility] will need to return for further PT/OT (16) DVT prophylaxis: Plan: Pierre full code Medically stable to be transferred Admission and Anticipated Discharge Date Admission Date: March 16, 2021 Subjective 03/24/2021 The patient was seen and examined in telemetry unit He has been weak and lethargic and complains to have some abdominal discomfort Denies any chest pain and/or palpitation or any shortness of breath at rest 03/25/2021 The patient was seen and examined in telemetry unit He has been very anxious about the results of the pathology and generally weak Denies any abdominal pain, nausea and or vomiting Review of Systems Review of Systems: All systems reviewed and are unremarkable except as noted below Neurologic: Generally weak and lethargic Physical Exam Physical Exam: Lying in bed without any acute distress but looks pale Constitutional: well developed, well nourished, + ill appearing and + obese Eyes: PERRL, conjunctivae normal, anicteric sclerae ENMT: external ear and nose normal, oropharynx normal Neck: trachea midline, no thyromegaly Respiratory: no respiratory distress, no labored breathing and no cough Auscultation: + diminished lung sounds; no crackles and no wheezes Cardiovascular: Rate/Rhythm: regular rate and regular rhythm; not tachycardic Heart Sounds: normal S1 and normal S2; no murmur Extremities: + edema (1+ edema bilaterally) Gastrointestinal (Abdomen): Inspection/Auscultation: normal bowel sounds; abdomen not distended Percussion/Palpation: + abdomen tender (Minimally tender in the lower quadrant) and abdomen soft Musculoskeletal: No acute arthritis in any joint. Neurologic: Alert, awake and oriented timesX3 Lymphatic: no cervical or axillary lymphadenopathy Results & Data Results & Data ([facility]) Vital Signs (Past 12 Hours) Vital Signs Temp Pulse Pulse Pulse Resp BP BP 03/25/21 15:57 36.9 C 78 17 138/86 03/25/21 15:20 74 03/25/21 11:46 36.6 C 71 18 130/69 03/25/21 07:58 59 L 03/25/21 07:54 36.6 C 60 18 132/75 Pulse Ox 03/25/21 15:57 95 03/25/21 15:20 03/25/21 11:46 95 03/25/21 07:58 03/25/21 07:54 94 Laboratory Results Short CBC 03/25/21 Range/Units 05:46 WBC 2.51 L (4.8-10.8) K/uL Hgb 8.0 L (14.0-18.0) g/dL Hct 24.7 L (42-52) % Plt Count 190 (130-400) K/uL BMP 03/25/21 05:46 Sodium 140 Potassium 4.1 Chloride 109 H Carbon Dioxide 28 BUN 6 L Creatinine 0.79 Glucose 115 H Calcium 7.8 L Medications Administered Current Inpatient Medications Acetaminophen (Acetaminophen 325 Mg Tab) 650 mg PO Q4H PRN PRN Reason: Pain or Fever Stop: 04/15/21 14:51 Last Admin: 03/21/21 01:13 Dose: 650 mg Documented by: Al Hydrox/Mg Hydrox/Simethicone (Aluminum/Magnesium Susp 30 Ml Udc) 15 ml PO Q4H PRN PRN Reason: Dyspepsia Stop: 04/15/21 14:51 Apixaban (Apixaban 5 Mg Tablet) 5 mg PO Q12 BOBBI Stop: 04/15/21 20:59 Last Admin: 03/25/21 09:36 Dose: 5 mg Documented by: Atorvastatin Calcium (Atorvastatin 10 Mg Tab) 10 mg PO HS BOBBI Stop: 04/15/21 20:59 Last Admin: 03/24/21 21:06 Dose: 10 mg Documented by: Azathioprine (Azathioprine 50 Mg Tab) 100 mg PO DAILY BOBBI Stop: 04/16/21 08:59 Last Admin: 03/25/21 09:37 Dose: 100 mg Documented by: Citalopram Hydrobromide (Citalopram 40 Mg Tab) 40 mg PO DAILY BOBBI Stop: 04/16/21 08:59 Last Admin: 03/25/21 09:37 Dose: 40 mg Documented by: Dextrose (Dextrose 50% 50 Ml Syringe) 25 - 50 ml IV UD PRN; Protocol PRN Reason: Hypoglycemia Protocol Stop: 04/15/21 14:51 Glucagon (Glucagon For Inj 1 Mg Vial) 1 mg SQ UD PRN; Protocol PRN Reason: Hypoglycemia Protocol Stop: 04/15/21 14:51 Glucose (Glucose 10 Tabs/Tube) 4 - 8 tabs PO UD PRN; Protocol PRN Reason: Hypoglycemia Protocol Stop: 04/15/21 14:51 Glucose (Glucose 40% Gel 15 Gm Tube) 15 - 30 gm PO UD PRN; Protocol PRN Reason: Hypoglycemia Protocol Stop: 04/15/21 14:51 Lorazepam (Lorazepam 0.5 Mg Tab) 0.5 mg PO TID PRN PRN Reason: Anxiety Stop: 04/15/21 14:51 Magnesium Hydroxide (Magnesium Hydroxide Susp 30 Ml Udc) 30 ml PO Q12H PRN PRN Reason: Constipation Stop: 04/15/21 14:51 Metoprolol Tartrate (Metoprolol Tartrate 25 Mg Tab) 12.5 mg PO Q12 BOBBI Stop: 04/17/21 09:29 Last Admin: 03/25/21 10:13 Dose: 12.5 mg Documented by: Miconazole Nitrate (Miconazole Nitrate Powder 43 Gm) 1 appln EXT Q1H PRN PRN Reason: AFFECTED SKIN Stop: 04/21/21 17:37 Last Admin: 03/25/21 13:43 Dose: 1 appln Documented by: Miscellaneous (Carbohydrates For Hypoglycemia ) 15 - 30 gm PO UD PRN PRN Reason: Hypoglycemia Protocol Stop: 04/15/21 14:51 Ondansetron HCl (Ondansetron Inj 2 Mg/Ml 2 Ml Vial) 4 mg IV Q4H PRN PRN Reason: Nausea Stop: 04/16/21 15:36 Last Admin: 03/23/21 10:57 Dose: 4 mg Documented by: Prednisone (Prednisone 10 Mg Tablet) 10 mg PO BID [facility] Stop: 04/18/21 20:59 Last Admin: 03/25/21 09:36 Dose: 10 mg Documented by: Promethazine HCl (Promethazine Hcl 25 Mg Tab) 25 mg PO Q6H PRN PRN Reason: Nausea And Vomiting Stop: 04/17/21 12:10 Pyridostigmine Harrison (Pyridostigmine Harrison 60 Mg Tab) 60 mg PO BID@0800,1230 [facility] Stop: 04/16/21 07:59 Last Admin: 03/25/21 13:08 Dose: 60 mg Documented by: Pyridostigmine Harrison (Pyridostigmine Harrison 60 Mg Tab) 90 mg PO HS [facility] Stop: 04/15/21 20:59 Last Admin: 03/24/21 21:04 Dose: 90 mg Documented by: Tamsulosin HCl (Tamsulosin Hcl 0.4 Mg Cap) 0.4 mg PO QDD [facility] Stop: 04/15/21 16:29 Last Admin: 03/24/21 16:42 Dose: 0.4 mg Documented by:
[2021-03-25] MEDS: TAMSULOSIN HCL 0.4 MG CAP PO SCH (17:53)
[2021-03-25] MEDS: ATORVASTATIN 10 MG TAB PO SCH (20:47)
[2021-03-26 07:49] LABS: Eosinophils # (auto) 0.03 K/uL (0-0.5); Eosinophils % (auto) 1.2 %; Hematocrit (blood only) 26.3 % (42-52); Hemoglobin 8.4 g/dL (14.0-18.0); Immature Granulocytes # (auto) 0.02 K/uL (0.00-0.02); Immature Granulocytes % (auto) 0.8 %; Lymphocytes # (auto) 0.59 K/uL (1.2-3.4); Lymphocytes % (auto) 24.4 %; Mean Corpuscular Hemoglobin 29.4 pg (25-34); Mean Corpuscular Hgb Conc 31.9 g/dL (32-36); Mean Platelet Volume 10.7 fL (7.4-10.4); Monocytes # (auto) 0.11 K/uL (0.11-0.59); Monocytes % (auto) 4.5 %; Neutrophils # (auto) 1.67 K/uL (1.4-6.5); Neutrophils % (auto) 69.1 %; Nucleated RBC # (auto) 0.02 K/uL (0-0); Nucleated RBC % (auto) 0.7 %; Platelet Count 183 K/uL (130-400); RDW Coefficient of Variation 16.3 % (11.5-14.5); RDW Standard Deviation 52.9 fL (36.4-46.3); Red Blood Count 2.86 M/uL (4.7-6.1); White Blood Count 2.42 K/uL (4.8-10.8)
[2021-03-26] MEDS: METOPROLOL TARTRATE 25 MG TAB PO SCH (08:08)
[2021-03-26] MEDS: predniSONE 10 MG TABLET PO SCH (08:08)
[2021-03-26] MEDS: CITALOPRAM 40 MG TAB PO SCH (08:09)
[2021-03-26] MEDS: PYRIDOSTIGMINE BROMIDE 60 MG TAB PO SCH ×2 (08:09→12:05)
[2021-03-26] MEDS: azaTHIOprine 50 MG TAB PO SCH (08:09)
[2021-03-26] MEDS: APIXABAN 5 MG TABLET PO SCH (08:09)
[2021-03-26 08:12] VITALS: O2SAT 96
[2021-03-26 08:22] LABS: BUN Creatinine Ratio 8.2 (10-20); Calcium 7.5 mg/dl (8.5-10.1); Creatinine Clr Calc Pharmacy 118.8 ml/min; Est GFR (African American) 107.8 ml/min; Magnesium 1.4 mg/dl (1.8-2.4); Potassium 4.1 mmol/L (3.5-5.1)
[2021-03-26] MEDS: MAGNESIUM SULFATE / D5W 1 GM/100 ML BAG IV SCH ×2 (09:16→11:06)
[2021-03-26 11:44] VITALS: PULSE 74; TEMP 97.9
--- NOTE | 2021-03-26 15:17 | Discharge Summary ---
Date of Service March 26, 2021 Admission HPI Per Admitting Provider This is an 80-year-old male who has significant past medical history of myasthenia gravis, T2DM, history of Covid hospitalization complicated by pneumonia, pulmonary embolism and paroxysmal atrial fib, anemia, critical illness myopathy who presents to ED at the referral of [facility] rehabilitation due to anemia. Of significance patient has had multiple hospitalizations initially starting January 20 secondary to Covid pneumonia and pulmonary embolism at [facility]. He was treated with IV dexamethasone, remdesivir, started on Eliquis and his hypoxia resolved. He was rehospitalized at [facility] on 01/26 secondary to A. fib with RVR requiring IV metoprolol. He was already anticoagulated on Eliquis. He also had hypoxia which resolved. During hospitalization he was re treated with dexamethasone and remdesivir. He was rehospitalized on 02/08-02/12 at [facility] secondary to UTI which urine culture grew Enterococcus. 1 of 2 blood cultures also grew Enterococcus. He was treated with IV ampicillin and transition to Augmentin. Repeat blood cultures on 02/12 revealed no growth to date. He was transferred to [facility] due to deconditioning. Unfortunately he was hospitalized at our facility in [place] on 02/16-02/27 secondary to acute kidney injury with an initial creatinine of 7.7. He was seen and evaluated by nephrology who felt was secondary to acute tubular necrosis. His renal ultrasound was negative. During hospitalization he did have anemia as well with a hemoglobin on day of discharge at 9.5. It was felt to be secondary to chronic illness as well as phlebotomy. He has been at acute rehabilitation at [facility] where he has been participating in therapy. Overall he feels it has not been going very well due to lack of energy and lack of appetite. He has had very poor p.o. intake over the past 2 months, but states he is drinking liquid. He does complain of being lightheaded and dizzy upon standing with therapy. He feels this is been going on since develop ing Covid. He denies any fever, chills, sweats, chest pain, shortness of breath, palpitations, nausea, vomiting, abdominal pain, melena, hematochezia, hematuria, hemoptysis, epistaxis. He does complain of having diarrhea approximately 3 loose bowel movements daily. This is been ongoing since [facility]. He denies any abdominal pain with the diarrhea. He has been having frequent blood draws in [facility], approximately daily to monitor hemoglobin. His hemoglobin on admission on 02/28 was 9.3. It has slowly trended down to 6.4 this morning which is why he was referred to ED. In ED patient has remained hemodynamically stable. Per auscultation and monitor he is in atrial fibrillation, rate controlled. His hemoglobin is 7.2 with normal indices. Admission Exam Per Admitting Provider Physical Exam: Constitutional: WD/WN, Elderly, M, pale, vitals as above, NAD, sitting up in bed, pleasant, conversing easily Head: Normocephalic, Atraumatic Eyes: PERRL, conjunctivae normal, anicteric sclerae ENMT: external ear and nose normal, oropharynx normal Neck: trachea midline, no thyromegaly normal visual inspection Respiratory: normal respiratory effort, lungs clear to auscultation, no wheeze, rales, rhonchi. Normal insp/exp effort, no accessory muscle use Cardiovascular: IRR/IRR, no murmur, b/l + 2 pretibial and pedal edema, no erythema, negative homans, Vessels: no JVD or carotid bruit Chest: normal inspection of chest Abdomen: normal bowel sounds, soft, nontender, no hepatosplenomegaly Musculoskeletal: no cyanosis or clubbing, AROM x 4 Skin: no rashes, warm and dry normal turgor Neurologic: PERRL, EOMI, accommodation nl, no face palsy, no dysarthria CN's II-XI intact bilaterally and moves all extremities Psychiatric: A+Ox3, euthymic affect Lymphatic: no cervical or axillary lymphadenopathy : sacral erythema, with evidence of skin breakdown Principal Diagnosis Atrial fibrillation with RVR, syncope, anemia secondary to GI blood loss, colonic mass-2 Tubulovillous adenoma, myasthenia gravis Discharge Exam Constitutional well developed, well nourished, + ill appearing and + obese Eyes PERRL, conjunctivae normal, anicteric sclerae ENMT external ear and nose normal, oropharynx normal Neck trachea midline, no thyromegaly Respiratory no respiratory distress, no labored breathing and no cough Auscultation: + diminished lung sounds; no crackles and no wheezes Cardiovascular Rate/Rhythm: regular rate and regular rhythm; not tachycardic Heart Sounds: normal S1 and normal S2; no murmur Extremities: + edema (1+ edema bilaterally) Gastrointestinal (Abdomen) Inspection/Auscultation: normal bowel sounds; abdomen not distended Percussion/Palpation: + abdomen tender (Minimally tender in the lower quadrant) and abdomen soft Lymphatic no cervical or axillary lymphadenopathy Discharge Data Allergies Allergy/AdvReac Type Severity Reaction Status Date / Time onion Allergy Unknown Verified 03/21/21 12:26 pork derived (porcine) Allergy Unknown Verified 03/21/21 12:26 lactose AdvReac Unknown Nausea Verified 03/21/21 12:26 Consultations 03/16/21 13:01 ED Decision to Admit Stat 03/16/21 14:49 Consult Cardiology Routine 03/17/21 12:38 Consult Gastroenterology Routine Procedures Performed Operation Date: 03/20/21 16:45 <No data on this case meets the specified criteria> Operation Date: 03/21/21 16:30 Actual Procedures p Colonoscopy Polypectomy - Jose Enrique Reyes MD s EGD Biopsy Cytology - Jose Enrique Reyes MD Ordered Studies 03/16/21 11:38 CT abd pelvis IV con only Stat Hospital Course (1) Atrial fibrillation with rapid ventricular response: Known paroxysmal atrial fibrillation with RVR this am 03/23/2021. He was in sinus rhythm this admission until this morning. Lopressor 5mg IV given. Was on bedpan and had a BM during this time. BP went to 85 systolic and he had a temporary loss of consciousness. IVF given and BP responded, HR improved, still in afib. Repeat EKG on 03/23/2021 at 11:25 AM noted to be very bradycardic at 51/min Will not give any more IV beta-ramandeep but continue with the oral small dose of beta-ramandeep as before and the heart rate this morning has been around 65 Patient remains weak and lethargic Rate is controlled and does not have any cardiac symptoms Denies any more cardiac symptoms (2) Syncope: Momentary loss of consciousness 2/2 hypotension with BM and Lopressor given together. Improved now with IVF. BP into the normal range within minutes and mentating clearly within just a couple of minutes. He was assisted to the floor by two nurses until additional manpower could arrive and assist him into the bed. He did not experience a traumatic fall. Will need to have PT and OT evaluation Likely be discharged tomorrow No more syncope and will be discharged to SNF this afternoon (3) Anemia: Likely multifactorial given excessive phlebotomy, recent illnesses, multiple comorbidities. Likely chronic GI blood loss from colon mass. Received 2 unit of blood transfusion following admission to the hospital. Hemoglobin remained stable thereafter and Hemoccult remained negative. Cont Eliquis to complete 3 months of therapy post PE. H/H is improved and no hematochezia or melena has been noted. 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 This has resolved and Eliquis was restarted. (6) Paroxysmal A-fib: Cont metoprolol, eliquis on hold as above doing well from a cardiac perspective. (7) Electrolyte abnormality: Low phos, low K, low Ca, and low Mg. Multifactorial including ongoing diarrhea and poor nutrition. Replacing IVF. Recheck this evening. Electrolytes were normalized (8) Lower extremity edema: 2+ lower extremity edema present. Patient appears euvolemic. With recent events, will hold on any diuretic therapy. TEDs declined by patient. (9) History of COVID-19: 01/2021 s/p remdesivir and dexamethasone, not currently requiring treatment or isolation. (10) History of pulmonary embolism: Diagnosed in Jan 2021, cont anticoagulation. Cont Eliquis (11) Myasthenia gravis: Continue Pyridostigmine and azathioprine, no evidence of crisis despite generalized weakness, PT/OT to assess. On further review of his records, he is supposed to be taking 10 mg twice daily of prednisone and has been off this for approximately 1 month because of moving into and out of the hospital. No evidence of myasthenia crisis, continue prednisone twice daily which was r estarted a few days ago. No signs and or symptoms of acute disease (12) DM type 2 (diabetes mellitus, type 2): A1C 7.1. May need to add blood sugar checks with addition of prednisone. Will test daily BMP for now. (13) Hypertension: BP stable, cont current therapy (14) Diarrhea: chronic diarrhea, not infectious, ongoing x 3 months. Recent colonoscopy and patient reported an improvement. C. difficile toxin has been negative (15) Critical illness myopathy: currently at [facility] will need to return for further PT/OT (16) DVT prophylaxis: Pierre full code Medically stable to be transferred Will be transferred to SNF this afternoon Total Time Total Time Spent Total Time Spent (In Minutes): 45 minutes Discharge Plan Discharge Items Patient Disposition: Transfer Custodial Fac Reason For Visit: ANEMIA Discharge Diagnosis: Atrial fibrillation with RVR, syncope, anemia secondary to GI blood loss, colonic mass-2 Tubulovillous adenoma, myasthenia gravis Activity: As commented below Activity Comment: Will need continued PT and OT Non-emergency contact: Primary Care Provider Call non-emergency contact if: you have any medication questions and your symptoms worsen Follow-up/Referrals: [facility] [Primary Care Provider] - (Please make an appointment with your primary care provider within 7 days following discharge from the facility) Diet: Carb Consistent or DM2 Addtl Attending Provider Instructions: Please take precautions to avoid fall [facility] will call you with an appointment for polypectomy from your colon Your metoprolol dose has been decreased to 12.5 mg twice daily Pending Studies at Discharge: No Stand-Alone Forms: My [facility] Skilled Items Patient informed of condition?: Yes DNR: No Discharge Level of Care: Skilled Communicable Disease: No Discharge Prognosis: Stable Lines: None Urinary Catheter: No Medications and DC Order Prescriptions: Continued acetaminophen [Tylenol] 325 mg Tablet 650 mg PO Q4H PRN (Reason: Pain) RF: 0 citalopram [Celexa] 40 mg tablet 40 mg PO DAILY RF: 0 atorvastatin [Lipitor] 10 mg tablet 10 mg PO HS RF: 0 ondansetron HCl [Zofran] 4 mg tablet 4 mg PO Q8H PRN (Reason: Nausea) RF: 0 ascorbic acid (vitamin C) 1,000 mg Tablet Extended Release 1,000 mg PO DAILY RF: 0 diphenoxylate-atropine [Lomotil] 2.5-0.025 mg tablet 1 tab PO QID PRN (Reason: Diarrhea) RF: 0 azathioprine [Imuran] 50 mg tablet 100 mg PO DAILY RF: 0 tamsulosin [Flomax] 0.4 mg capsule 0.4 mg PO QDD RF: 0 benzonatate [Tessalon Perles] 100 mg capsule 100 mg PO TID PRN (Reason: Cough) RF: 0 pantoprazole [Protonix] 40 mg tablet,delayed release (DR/EC) 40 mg PO DAILYBB RF: 0 pyridostigmine bromide [Mestinon] 60 mg tablet 60 mg PO BIDM RF: 0 docusate sodium 100 mg Capsule 100 mg PO BID RF: 0 calcium carbonate-vitamin D3 [Calcium 500 + D] 500 mg(1,250mg) -200 unit Tabl et 1 tab PO DAILY RF: 0 zinc sulfate [Zinc-220] 50 mg zinc (220 mg) capsule 50 mg PO DAILY RF: 0 Eliquis 5 mg tablet 5 mg PO Q12 RF: 0 lorazepam 0.5 mg Tablet 0.5 mg PO TID PRN (Reason: Anxiety) RF: 0 pyridostigmine bromide 60 mg tablet 90 mg PO HS RF: 0 potassium chloride 20 mEq Tablet Extended Release 20 meq PO TID RF: 0 magnesium oxide 400 mg magnesium Tablet 400 mg PO BID RF: 0 prednisone 10 mg Tablet 10 mg PO BID RF: 0 Changed metoprolol tartrate 25 mg tablet 12.5 mg PO Q12H Qty: 0 RF: 0 Discharge Orders: Discharge Order (Routine); Ordered 03/26/21 Ordered By: Ayanna Ball/Other Patient Handouts: High Blood Sugar (Hyperglycemia), Hypoglycemia (Low Blood Sugar), Managing Type 2 Diabetes Admission Data Admit Date/Time: 03/16/21 13:09 Attending Provider: Ayanna Panchal Admit Provider: Zuri Curry Primary Care Provider: Noah Flores [facility] ; Neel Knox ; Zuri Curry ; Antonio Leo ; Francisco Champagne Other Interventions: Discharge Summary Assessment (RN) Last Done: 03/26/21 15:43
[2021-03-26 15:45] VITALS: BP 132/75
== END 2021-03-26 16:36 | DRG 811 ==
LOC: ED 10:36 → SUATTDRO 13:09 → 2W 13:09 → 2S 03-23 10:39
DX: B37.0 Candidal stomatitis; Z87.891 Personal history of nicotine dependence; T45.515A Adverse effect of anticoagulants, initial encounter; Z79.01 Long term (current) use of anticoagulants; Z86.16 Personal history of COVID-19; Z86.711 Personal history of pulmonary embolism; Y92.239 Unspecified place in hospital as the place of occurrence of the external cause; R13.10 Dysphagia, unspecified; N17.0 Acute kidney failure with tubular necrosis; R19.7 Diarrhea, unspecified; R04.0 Epistaxis; R00.1 Bradycardia, unspecified; D12.2 Benign neoplasm of ascending colon; I48.0 Paroxysmal atrial fibrillation; I10 Essential (primary) hypertension; D51.0 Vitamin B12 deficiency anemia due to intrinsic factor deficiency; D50.0 Iron deficiency anemia secondary to blood loss (chronic); E83.42 Hypomagnesemia; T44.7X5A Adverse effect of beta-adrenoreceptor antagonists, initial encounter; E11.9 Type 2 diabetes mellitus without complications; G70.00 Myasthenia gravis without (acute) exacerbation; G72.81 Critical illness myopathy